=== PATIENT | female | born 1995 | race Caucasian/White ===

== ENCOUNTER 2024-05-08 14:43 | Emergency (ER) | payer BC, SELFPAY ==
[2024-05-08] VITALS (7 sets, daily range): BP systolic 125–151; BP diastolic 87–121; PULSE 98–133; RESP 14–18; TEMP 37.1; O2SAT 100; BMI 23.0
[2024-05-08 15:22] LABS: Appearance Urine Clear (Clear); Bilirubin Urine Negative (Negative); Blood Urine Negative (Negative); Color Urine Yellow (Yellow); Glucose Urine Negative (Negative); Ketones Urine Negative (Negative); Leukocyte Esterase Urine Trace (Negative); Nitrite Urine Negative (Negative); Protein Urine Negative (Negative); Urobilinogen Urine 0.2 (0.2-1.0)
[2024-05-08] MEDS: 0.9 % SODIUM CHLORIDE 1000 ml 1,000 ML IV (15:35)
--- NOTE | 2024-05-08 15:40 | ED_ITS ---
HPI - General Adult General Date Seen: 05/08/24 <Natalie Howe MD - Last Filed: 05/12/24 23:57> Chief complaint: Arrhythmia/Palpitations <Naatlie Howe MD - Last Filed: 05/12/24 23:57> Stated complaint: 16 weeks , abnormal EKG <Natalie Howe MD - Last Filed: 05/12/24 23:57> Time Seen by Provider: 05/08/24 14:49 <Natalie Howe MD - Last Filed: 05/12/24 23:57> Source: patient, RN notes reviewed and other <Natalie Howe MD - Last Filed: 05/12/24 23:57> Mode of arrival: ambulatory <Natalie Howe MD - Last Filed: 05/12/24 23:57> Limitations: no limitations <Natalie Howe MD - Last Filed: 05/12/24 23:57> History of Present Illness HPI narrative: Patient is a 29-year-old , 15 and half weeks who went to her regular clinic today because of ongoing problems with tachycardia and weakness. She was seen there last week and had IV fluids, felt improved after that but symptoms are recurring. She says she developed problems last Wednesday when she noticed when she stood up her heart felt like it was racing. She has had lots of problems with vomiting and has had a poor appetite, has been able to keep fluids down okay though. She notes that when she stands up her legs feel wobbly. She was not able to go to work last Wednesday because of these symptoms. 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 She describes feeling short of breath at 1 point but says it really is not shortness of breath it is just that her legs feel weak. She was able to go for a walk on Wednesday for about 20 minutes and says that went well, overall she has felt better since the fluids. She denies any chest pain, she has not had any lower extremity swelling, has had an occasional charley horse but nothing more persistent. she has not had any fevers or chills or other viral symptoms. She denies diarrhea, black or bloody stools. She had a history of preeclampsia with her 1st but otherwise was uncomplicated. She denies any family history of DVT, PE or significant miscarriage. She saw her primary doctor today and was sent here from clinic for further evaluation given ongoing tachycardia. She is noted to be tachycardic on standing up, but blood pressure also goes up with standing. She notes that she has been checking her blood pressures at home during this and they have always been good, but she says she does have some anxiety around having her blood pressure checked here in the hospital and is not surprised that it is running higher here. She does not smoke or drink. Here today with her . No vaginal bleeding. <Natalie Howe MD - Last Filed: 05/12/24 23:57> Related Data Home medications: Home Medications ?Medication ?Instructions ?Recorded ?Confirmed No Known Home Medications 05/08/24 05/08/24 <Natalie Howe MD - Last Filed: 05/12/24 23:57> Allergies/adverse reactions: Allergies Allergy/AdvReac Type Severity Reaction Status Date / Time No Known Drug Allergies Allergy Verified 05/08/24 14:50 <Natalie Howe MD - Last Filed: 05/12/24 23:57> Review of Systems Status of ROS: Reports: 6 or more systems reviewed and unremarkable except as noted in History and below <Natalie Howe MD - Last Filed: 05/12/24 23:57> [facility] Social History: Social History Smoking Status: Never smoker How often do you have a drink containing alcohol: never AUDIT-C Alcohol total score: 0 Non-prescribed substance use: denies use <Natalie oHwe MD - Last Filed: 05/12/24 23:57> Exam Narrative: Exam Narrative: Vital signs as noted above. In general, an alert, well-appearing patient. She is breathing easily, speaks in full sentences. Head: Normocephalic, atraumatic. Eyes: Pupils are equal reactive. Extraocular movements are full. Conjunctivae are normal. ENT: Mucous membranes are moist. Throat is normal. Neck: Supple without lymphadenopathy. Heart: Mild tachycardia, no murmur or rub. Lungs: Clear bilaterally. No increased work of breathing, crackles or wheezes. Abdomen: Gravid, soft, nontender to palpation. Extremities: Well perfused. No edema. No calf tenderness. Pulses intact. Neurologic: Patient is alert and oriented to person and place. Speech is fluent. Face is symmetric. Moves all extremities equally. Affect: Normal. Skin: Warm and dry. Well perfused. <Natalie Howe MD - Last Filed: 05/12/24 23:57> Const: Vital Signs, click to edit/add: Vital Signs - 24 hr 05/08/24 14:47 05/08/24 15:05 Temperature 98.8 F Pulse Rate [Left P ulse Oximeter] 104 H Pulse Rate [orthos tatic lying Pulse Oximeter] 110 H Pulse Rate [orthos tatic sitting Puls e Oximeter] 133 H Pulse Rate [orthos tatic standing Pul se Oximeter] 133 H Respiratory Rate 18 Blood Pressure [Ri ght Upper Arm] 151/102 H Blood Pressure [or thostatic lying Ri ght Arm] 138/89 Blood Pressure [or thostatic sitting Right Arm] 150/110 H Blood Pressure [or thostatic standing Right Arm] 149/121 H Pulse Oximetry 100 Oxygen Delivery Me thod Room Air <Natalie Howe MD - Last Filed: 05/12/24 23:57> Vital Signs, click to edit/add: Vital Signs - 24 hr 05/08/24 14:47 05/08/24 15:05 Temperature 98.8 F Pulse Rate [Left P ulse Oximeter] 104 H Pulse Rate [orthos tatic lying Pulse Oximeter] 110 H Pulse Rate [orthos tatic sitting Puls e Oximeter] 133 H Pulse Rate [orthos tatic standing Pul se Oximeter] 133 H Respiratory Rate 18 Blood Pressure [Ri ght Upper Arm] 151/102 H Blood Pressure [or thostatic lying Ri ght Arm] 138/89 Blood Pressure [or thostatic sitting Right Arm] 150/110 H Blood Pressure [or thostatic standing Right Arm] 149/121 H Pulse Oximetry 100 Oxygen Delivery Me thod Room Air <Jacqueline Bowman MD - Last Filed: 05/08/24 17:35> Documenting provider has reviewed patient's vital signs: yes <Natalie Howe MD - Last Filed: 05/12/24 23:57> Course Course ED Course: Patient had an EKG on arrival that shows mild sinus tachycardia with a ventricular rate of 102. No acute ST segment changes. No S1 Q 3 T3. I looked with the bedside ultrasound, she has normal cardiac contractility, no significant effusion. Right ventricle looks normal in size. We also took a peek at baby, her rate looks normal, good movement. Etiology of her symptoms at this time is a little unclear. She was sent here primarily because of concern for PE. Overall her presentation is fairly atypical for that, aside from the persistent tachycardia. We did do orthostatics, her heart rate jumps from 08/11 lying down to 133 standing but her blood pressure as mentioned also goes up. Pressures are high here will need to see if those settle back down. Will check some lab work, rule out anemia, electrolyte dysfunction, thyroid disease, LFTs in urine to look for unlikely symptoms of preeclampsia given fairly early stage of . I am going to place an IV and give her L of normal saline given her significant symptomatic tachycardia and state. <Natalie Howe MD - Last Filed: 05/12/24 23:57> Reevaluation(s) Reevaluation #1: Dr. Flores Dewey inherited care from Dr. Howe. Patient's D-dimer was elevated, she is undergoing CT PA. remainder of labs showing no signs of leukocytosis. Urinalysis is not suggestive of ketones or dehydration. TSH is within normal limits. Has received 1 L of normal saline. Awaiting imaging findings. <Jacqueline Bowman MD - Last Filed: 05/08/24 17:35> Time of Reevaluation #2: 17:33 <Jacqueline Bowman MD - Last Filed: 05/08/24 17:35> Reevaluation #2: Patient counseled on imaging findings, negative for pulmonary embolism. Other than the elevated D-dimer, blood work is also reassuring. No signs of significant infection, inflammation, severe anemia, electrolyte abnormality. Urinalysis was not suggestive of dehydration or excessive ketones. She does feel quite a bit better after IV fluids. Repeat blood pressure is 125/87. We discussed plenty of salt in her diet, steadily drinking fluids throughout the day. Would encourage compression stockings. Follow up with her obstetrical provider in 1 week and would recommend new [facility] paperwork to reflect need to sit and potential increased care due to symptoms. <Jacqueline Bowman MD - Last Filed: 05/08/24 17:35> Vital Signs Vital signs: Initial Vital Signs Temperature 98.8 F 05/08/24 14:47 Temperature Source Temporal Artery Scan 05/08/24 14:47 Pulse Rate 104 H 05/08/24 14:47 Respiratory Rate 18 05/08/24 14:47 Blood Pressure 151/102 H 05/08/24 14:47 Blood Pressure Mean 118 H 05/08/24 14:47 Blood Pressure Position Sitting 05/08/24 14:47 Pulse Oximetry 100 05/08/24 14:47 Oxygen Delivery Method Room Air 05/08/24 14:47 Vital Signs Temperature 98.8 F 05/08/24 14:47 Pulse Rate 104 H 05/08/24 14:47 Respiratory Rate 18 05/08/24 14:47 Blood Pressure 151/102 H 05/08/24 14:47 Pulse Oximetry 100 05/08/24 14:47 Oxygen Delivery Method Room Air 05/08/24 14:47 Temperature 98.8 F 05/08/24 17:45 Pulse Rate 104 H 05/08/24 17:45 Respiratory Rate 16 05/08/24 17:45 Blood Pressure 151/102 H 05/08/24 17:45 Pulse Oximetry 100 05/08/24 17:30 Oxygen Delivery Method Room Air 05/08/24 14:47 <Natalie Howe MD - Last Filed: 05/12/24 23:57> Initial Vital Signs Temperature 98.8 F 05/08/24 14:47 Temperature Source Temporal Artery Scan 05/08/24 14:47 Pulse Rate 104 H 05/08/24 14:47 Respiratory Rate 18 05/08/24 14:47 Blood Pressure 151/102 H 05/08/24 14:47 Blood Pressure Mean 118 H 05/08/24 14:47 Blood Pressure Position Sitting 05/08/24 14:47 Pulse Oximetry 100 05/08/24 14:47 Oxygen Delivery Method Room Air 05/08/24 14:47 Vital Signs Temperature 98.8 F 05/08/24 14:47 Pulse Rate 104 H 05/08/24 14:47 Respiratory Rate 18 05/08/24 14:47 Blood Pressure 151/102 H 05/08/24 14:47 Pulse Oximetry 100 05/08/24 14:47 Oxygen Delivery Method Room Air 05/08/24 14:47 Temperature 98.8 F 05/08/24 17:45 Pulse Rate 104 H 05/08/24 17:45 Respiratory Rate 16 05/08/24 17:45 Blood Pressure 151/102 H 05/08/24 17:45 Pulse Oximetry 100 05/08/24 17:30 Oxygen Delivery Method Room Air 05/08/24 14:47 <Jacqueline Bowman MD - Last Filed: 05/08/24 17:35> Medications Administered Medications: Discontinued Medications Generic Name Dose Route Start Last Admin Trade Name Freq PRN Reason Stop Dose Admin Sodium Chloride 1,000 mls @ 1,000 mls/hr 05/08/24 15:15 05/08/24 16:31 0.9 % Sodium Chloride 1000 Ml IV 05/08/24 16:14 Infused .Q1H EMANUEL Infusion <Natalie Howe MD - Last Filed: 05/12/24 23:57> Discontinued Medications Generic Name Dose Route Start Last Admin Trade Name Freq PRN Reason Stop Dose Admin Sodium Chloride 1,000 mls @ 1,000 mls/hr 05/08/24 15:15 05/08/24 16:31 0.9 % Sodium Chloride 1000 Ml IV 05/08/24 16:14 Infused .Q1H EMANUEL Infusion <Jacqueline Bowman MD - Last Filed: 05/08/24 17:35> Medical Decision Making Lab Data Lab results reviewed: Yes I reviewed the patient's lab results <Jacqueline Bowman MD - Last Filed: 05/08/24 17:35> Lab results narrative: Labs very reassuring. Hemoglobin is stable, no leukocytosis. D-dimer was elevated, even out of proportion for . Therefore CT tPA was ordered and is thankfully reassuring. TSH is within expected limits. Urinalysis does not show any significant dehydration, ketones or signs of infection. Troponin is negative. <Jacqueline Bowman MD - Last Filed: 05/08/24 17:35> Labs: Lab Results 05/08/24 05/08/24 Range/Units 15:16 15:30 WBC 6.47 (4.50-11.00) K/uL RBC 3.95 L (4.00-5.20) m/uL Hgb 11.6 L (12.0-16.0) gm/dL Hct 34.2 (33.0-51.0) % MCV 87 (80-100) fL MCH 29 (26-34) pg MCHC 34 (32-36) gm/dL RDW Coeff of Tanisha 13.2 (11.5-15.5) % Plt Count 262 (140-440) K/uL Neut % (Auto) 70.9 (42.0-72.0) % Lymph % (Auto) 20.2 (20-44) % [place] % (Auto) 7.3 (0.0-11.0) % Eos % (Auto) 1.2 (0.0-7.0) % Baso % (Auto) 0.2 (0.0-3.0) % Neut # (Auto) 4.59 (1.7-7.0) K/uL Lymph # (Auto) 1.31 (0.90-2.90) K/uL [place] # (Auto) 0.50 (0.00-0.90) K/UL Eos # (Auto) 0.08 (0.00-0.50) K/uL Baso # (Auto) 0.01 (0.00-0.30) K/uL Abs Immat Gran (auto) 0.01 (0.00-0.30) K/uL Imm/Tot Granulo (auto) 0.2 % D-Dimer Quant (PE/DVT) 1.40 H (0.00-0.50) ug/ml Sodium 134 L (135-149) mmol/L Potassium 3.9 (3.6-5.1) mmol/L Chloride 103 (96-114) mmol/L Carbon Dioxide 22 (20-32) mmol/L Anion Gap 9 (7-15) mEq/L BUN 11 (5-24) mg/dL Creatinine 0.5 (0.5-1.5) mg/dL Estimated Creat Clear 128.94 Estimated GFR 129 ml/min Glucose 89 (60-115) mg/dL Calcium 9.5 (8.4-10.6) mg/dL Total Bilirubin 0.4 (0.1-1.5) mg/dL Direct Bilirubin 0.1 (0.0-0.5) mg/dL AST 25 (12-35) U/L ALT 18 (4-35) U/L Alkaline Phosphatase 41 (40-150) U/L Total Protein 7.6 (6.0-8.3) g/dL Albumin 4.5 (3.3-5.0) g/dL TSH 3.380 (0.270-4.200) uIU/mL Urine Color Yellow (Yellow) Urine Appearance Clear (Clear) Urine pH 7.0 (5.0-8.5) Ur Specific [place] 1.010 (1.000-1.030) Urine Protein Negative (Negative) Urine Glucose (UA) Negative (Negative) Urine Ketones Negative (Negative) Urine Blood Negative (Negative) Urine Nitrite Negative (Negative) Urine Bilirubin Negative (Negative) Urine Urobilinogen 0.2 (0.2-1.0) Ur Leukocyte Esterase Trace A (Negative) Urine RBC 0-2 (0-2) Urine WBC 2-5 (0-5) Ur Squamous Epith Cells None (None-Few) Urine Bacteria None (None) POC Troponin I 0.00 L (0.01-0.04) ng/ml <Natalie Howe MD - Last Filed: 05/12/24 23:57> Lab Results 05/08/24 05/08/24 Range/Units 15:16 15:30 WBC 6.47 (4.50-11.00) K/uL RBC 3.95 L (4.00-5.20) m/uL Hgb 11.6 L (12.0-16.0) gm/dL Hct 34.2 (33.0-51.0) % MCV 87 (80-100) fL MCH 29 (26-34) pg MCHC 34 (32-36) gm/dL RDW Coeff of Tanisha 13.2 (11.5-15.5) % Plt Count 262 (140-440) K/uL Neut % (Auto) 70.9 (42.0-72.0) % Lymph % (Auto) 20.2 (20-44) % [place] % (Auto) 7.3 (0.0-11.0) % Eos % (Auto) 1.2 (0.0-7.0) % Baso % (Auto) 0.2 (0.0-3.0) % Neut # (Auto) 4.59 (1.7-7.0) K/uL Lymph # (Auto) 1.31 (0.90-2.90) K/uL [place] # (Auto) 0.50 (0.00-0.90) K/UL Eos # (Auto) 0.08 (0.00-0.50) K/uL Baso # (Auto) 0.01 (0.00-0.30) K/uL Abs Immat Gran (auto) 0.01 (0.00-0.30) K/uL Imm/Tot Granulo (auto) 0.2 % D-Dimer Quant (PE/DVT) 1.40 H (0.00-0.50) ug/ml Sodium 134 L (135-149) mmol/L Potassium 3.9 (3.6-5.1) mmol/L Chloride 103 (96-114) mmol/L Carbon Dioxide 22 (20-32) mmol/L Anion Gap 9 (7-15) mEq/L BUN 11 (5-24) mg/dL Creatinine 0.5 (0.5-1.5) mg/dL Estimated Creat Clear 128.94 Estimated GFR 129 ml/min Glucose 89 (60-115) mg/dL Calcium 9.5 (8.4-10.6) mg/dL Total Bilirubin 0.4 (0.1-1.5) mg/dL Direct Bilirubin 0.1 (0.0-0.5) mg/dL AST 25 (12-35) U/L ALT 18 (4-35) U/L Alkaline Phosphatase 41 (40-150) U/L Total Protein 7.6 (6.0-8.3) g/dL Albumin 4.5 (3.3-5.0) g/dL TSH 3.380 (0.270-4.200) uIU/mL Urine Color Yellow (Yellow) Urine Appearance Clear (Clear) Urine pH 7.0 (5.0-8.5) Ur Specific [place] 1.010 (1.000-1.030) Urine Protein Negative (Negative) Urine Glucose (UA) Negative (Negative) Urine Ketones Negative (Negative) Urine Blood Negative (Negative) Urine Nitrite Negative (Negative) Urine Bilirubin Negative (Negative) Urine Urobilinogen 0.2 (0.2-1.0) Ur Leukocyte Esterase Trace A (Negative) Urine RBC 0-2 (0-2) Urine WBC 2-5 (0-5) Ur Squamous Epith Cells None (None-Few) Urine Bacteria None (None) POC Troponin I 0.00 L (0.01-0.04) ng/ml <Jacqueline Bowman MD - Last Filed: 05/08/24 17:35> Imaging Data CT scan - chest: Attestation: I have reviewed the pertinent imaging results. <Jacqueline Bowman MD - Last Filed: 05/08/24 17:35> My impression: Normal chest CT, no evidence of embolism, effusion, cardiomegaly. <Jacqueline Bowman MD - Last Filed: 05/08/24 17:35> Radiologist's impression: IMPRESSION: 1. No acute thoracic findings. Specifically, no evidence of pulmonary embolism. 2. Incidental 3 millimeter solid nonspecific right middle lobe pulmonary nodule. <Jacqueline Bowman MD - Last Filed: 05/08/24 17:35> Discharge Plan Discharge Clinical Impression: Orthostatic dizziness <Natalie Howe MD - Last Filed: 05/12/24 23:57> Patient Disposition: Home w/ Parent or Adult <Natalie Howe MD - Last Filed: 05/12/24 23:57> Condition: Improved <Natalie Howe MD - Last Filed: 05/12/24 23:57> Instructions: Lightheadedness (ED) <Natalie Howe MD - Last Filed: 05/12/24 23:57> Additional Instructions: I am glad that you are feeling better after the fluids. Unfortunately, the symptoms may last for several weeks in the 2nd trimester . Thankfully, there were no signs of complications seen like severe anemia, infection, blood clot in the lungs, thyroid disease or other complications. I am glad that your blood pressure has improved after fluids. I would recommend that you try to increase your salt consumption for the next month. Try to drink electrolyte solutions steadily throughout the day. Consider wearing knee-high compression stockings. I would recommend that you have your Ob provider fill out some new [place] paperwork requesting your need to sit when you are not feeling well and that there may be increased care due to the symptoms. For many, they do get better by about the 22 week rupesh. If her symptoms worsen significantly, you have chest pain, severe shortness of breath with exertion, vaginal bleeding or other alarming symptoms, please come back to the emergency department. Otherwise plan to keep the appointment with her Ob provider next week and update them on your symptom progression. You may return to full work duties at this time. <Natalie Howe MD - Last Filed: 05/12/24 23:57> Activity Level: No Restrictions <Natalie Howe MD - Last Filed: 05/12/24 23:57> No Restrictions <Jacqueline Bowman MD - Last Filed: 05/08/24 17:35> Discharge Diet: Regular <Natalie oHwe MD - Last Filed: 05/12/24 23:57> Regular <Jacqueline Bowman MD - Last Filed: 05/08/24 17:35> Prescriptions: No Action No Known Home Medications <Natalie Howe MD - Last Filed: 05/12/24 23:57> Follow Up/Referrals: Kimberly Sánchez MD [Primary Care Provider] - <Natalie Howe MD - Last Filed: 05/12/24 23:57> Stand Alone Forms: MyHealth Info Instructions <Natalie Howe MD - Last Filed: 05/12/24 23:57>
[2024-05-08 15:45] LABS: RBC Urine 0-2 (0-2)
[2024-05-08 15:49] LABS: Basophils Absolute Auto 0.01 K/uL (0.00-0.30); Basophils Percent Auto 0.2 % (0.0-3.0); Eosinophils Absolute Auto 0.08 K/uL (0.00-0.50); Eosinophils Percent Auto 1.2 % (0.0-7.0); Hematocrit 34.2 % (33.0-51.0); Hemoglobin* 11.6 gm/dL (12.0-16.0); Immature Granulocytes Abs Auto 0.01 K/uL (0.00-0.30); Immature Granulocytes Pct Auto 0.2 %; Lymphocytes Absolute Auto 1.31 K/uL (0.90-2.90); Lymphocytes Percent Auto 20.2 % (20-44); Mean Corpuscular HGB Conc 34 gm/dL (32-36); Mean Corpuscular Hemoglobin 29 pg (26-34); Mean Corpuscular Volume 87 fL (80-100); Monocytes Percent Auto 7.3 % (0.0-11.0); Neutrophils Absolute Auto 4.59 K/uL (1.7-7.0); Neutrophils Percent Auto 70.9 % (42.0-72.0); Platelet Count* 262 K/uL (140-440); RDW Coefficient of Variation % 13.2 % (11.5-15.5); Red Blood Count 3.95 m/uL (4.00-5.20); White Blood Count* 6.47 K/uL (4.50-11.00)
[2024-05-08 15:55] LABS: Slide Review Reflex No
[2024-05-08 16:04] LABS: Albumin* 4.5 g/dL (3.3-5.0); Chloride* 103 mmol/L (96-114); Sodium* 134 mmol/L (135-149)
[2024-05-08 16:05] LABS: Potassium* 3.9 mmol/L (3.6-5.1)
[2024-05-08 16:07] LABS: Alanine Aminotransferase* 18 U/L (4-35); Alkaline Phosphatase* 41 U/L (40-150); Aspartate Amino Transferase* 25 U/L (12-35); Bilirubin Direct* 0.1 mg/dL (0.0-0.5); Bilirubin Total* 0.4 mg/dL (0.1-1.5); Creatinine* 0.5 mg/dL (0.5-1.5); Est. Creatinine Clearance* 128.94; Estimated Glomerular Filt Rate 129 ml/min; Total Protein* 7.6 g/dL (6.0-8.3)
[2024-05-08 16:08] LABS: Anion Gap 9 mEq/L (7-15); Blood Urea Nitrogen* 11 mg/dL (5-24); Calcium* 9.5 mg/dL (8.4-10.6); Carbon Dioxide* 22 mmol/L (20-32); Glucose* 89 mg/dL (60-115)
--- NOTE | 2024-05-08 16:18 | CRLHL7_ITS ---
For Patients: As a result of the Century Cures Act, medical imaging exams and procedure reports are released immediately into your electronic medical record. You may view this report before your referring provider. If you have questions, please contact your health care provider. INDICATION: Weakness and persistent tachycardia in the context of COMPARISON: None TECHNIQUE: CT of the chest with intravenous contrast (95 milliliters Isovue 370). Examination was performed utilizing a dedicated pulmonary angiography protocol. Reconstructed MIP images were created. FINDINGS: Airways: The trachea and central airways are clear. Lungs: No mass or consolidation. 3 millimeter nonspecific right middle lobe solid pulmonary nodule on series 6, image 102. Pleura: No effusion. Lymph nodes: No bulky thoracic lymphadenopathy. Heart: Normal size. Aorta: Normal caliber. Pulmonary artery: Normal caliber of the main pulmonary artery. No evidence of pulmonary embolism. Chest wall: Normal. Bones: No acute osseous findings. IMPRESSION: 1. No acute thoracic findings. Specifically, no evidence of pulmonary embolism. 2. Incidental 3 millimeter solid nonspecific right middle lobe pulmonary nodule. Please note that all CT scans at this facility use dose modulation, iterative reconstruction, and/or weight-based dosing when appropriate to reduce radiation dose to as low as reasonably achievable. Dictated by Bhaskar Junior MD @ 05/08/2024 5:22:40 PM (Electronically Signed)
== END 2024-05-08 17:45 | disposition home or self-care (01) ==
PROVIDERS: Emergency Medicine; Emergency Provider Family Medicine; PCP Family Medicine
DX: I95.1 Orthostatic hypotension (principal); Z3A.16 16 weeks gestation of pregnancy
CPT/HCPCS: 36415; 71275; 76604; 76705; 80048; 80076; 81001; 84443; 84484; 85025; 85379; 87086; 93005; 93308; 99284; 99285; J7030; Q9967

== ENCOUNTER 2024-08-28 15:30 | Outpatient (RCR) | payer BC, SELFPAY | END 2024-10-13 10:20 | disposition home or self-care (01) | PROVIDERS: PCP Family Medicine; Visit Provider Family Medicine | DX: M54.42 Lumbago with sciatica, left side (principal); G89.29 Other chronic pain; R10.2 Pelvic and perineal pain; Z51.89 Encounter for other specified aftercare | CPT/HCPCS: 97110; 97112; 97140; 97161; 97535 ==

== ENCOUNTER 2024-10-06 10:30 | Outpatient (CLI) | payer BC, SELFPAY ==
[2024-10-06 10:45] VITALS: BP 144/89; PULSE 122
[2024-10-06 10:51] VITALS: BP 137/83; PULSE 109
[2024-10-06 11:08] VITALS: BP 129/86; PULSE 108
[2024-10-06 11:23] VITALS: BP 132/82; PULSE 111
--- NOTE | 2024-10-06 14:11 | PC.OBNST ---
NST Note NST Note Start: 10/06/24 10:26 Freq: ONCE Status: Active Protocol: Document 10/06/24 12:45 PORT (Rec: 10/06/24 14:11 PORT Desktop) NST Note 2 Para (# of births) 1 EDC 10/24/24 Gestational Age In Weeks & Days 37 Weeks & 3 Days Patient Presented with Complaint(s) of Observation after an injury If Observation after an injury, describe Pt fell on the sidewalk, landed on knees but felt abdomen pulling Reactive Yes Appropriate for Gestational Age Yes DRAGAN Yanez RNC Date 10/06/24 Reactive Yes Appropriate for Gestational Age Yes DRAGAN Vallejo RNC Date 10/06/24 OB NST charge Yes Complete NST Note via Write Note Yes The provider's electronic signature indicates the NST is reactive/appropriate for gestational age. *Note to provider: If an addendum is required, open the patient's chart and click on the note under the Nurse/Allied Health tab.
--- NOTE | 2024-10-06 20:31 | PM.OBLDTN ---
OB - Triage/Final Diagnosis Visit Information Time Seen by Provider: 12:30 Date Seen: 10/06/24 Date of evaluation: 10/06/24 Narrative: The patient is a 29 year old 2 para 1 at 37.3 weeks gestation who presents following fall. Patient was downtown this morning and slipped on ice, falling on right knee. She felt a pulling sensation in her abdomen, but did not hit her abdomen. Notably, patient has significant white coat hypertension. She has been monitoring blood pressures at home, and per [facility] that has been reasonable to use for measurements. She has a mild headache today, and plans to take tylenol and report back if things do not improve. She has been noting more contractions recently, but not very painful. Evaluation Vital signs: Vital Signs - 24 hr 10/06/24 10:45 10/06/24 10:51 10/06/24 11:08 Pulse Rate 122 H 109 H 108 H Blood Pressure 144/89 H 137/83 129/86 10/06/24 11:23 Pulse Rate 111 H Blood Pressure 132/82 Comments: Abdomen is soft, nontender Right knee has small bruise on anterior knee, no significant tenderness Fetus (Single) Heart Rate Baseline: 135 Cold Press Operator Variability: Moderate (6-25) Monitor Accelerations: Present Monitor Decelerations: None Final Diagnosis (1) : Status: Acute Problem details: term , having some contractions, not painful. (2) Fall: Status: Acute Problem details: - monitored until 4 hours post fall (1.5 hours monitoring total). All reassuring. (3) White coat syndrome with hypertension: Status: Acute Problem details: - blood pressures at home reasonable. 1 elevated BP during evaluation. Labs done 2 days ago, so not repeated today. Total Time Spent Total Time Spent: 20 minutes
== END 2024-10-06 12:40 | disposition home or self-care (01) ==
LOC: OB OUT 10:37 → OB 10:40
PROVIDERS: PCP Family Medicine; Visit Provider Family Medicine
DX: O26.893 Other specified pregnancy related conditions, third trimester (principal); S39.91XA Unspecified injury of abdomen, initial encounter; W19.XXXA Unspecified fall, initial encounter; Z3A.37 37 weeks gestation of pregnancy
CPT/HCPCS: 59025; 99199; G0463

== ENCOUNTER 2024-10-10 15:28 | Inpatient (IN) | payer BC, SELFPAY ==
[2024-10-10] VITALS (32 sets, daily range): BP systolic 100–170; BP diastolic 55–91; PULSE 89–114; RESP 16; TEMP 36.6–37.1; O2SAT 100; BMI 27.6
[2024-10-10 13:48] LABS: Hematocrit 33.1 % (33.0-51.0); Hemoglobin* 10.9 gm/dL (12.0-16.0); Mean Corpuscular HGB Conc 33 gm/dL (32-36); Mean Corpuscular Hemoglobin 29 pg (26-34); Mean Corpuscular Volume 88 fL (80-100); Platelet Count* 228 K/uL (140-440); Red Blood Count 3.75 m/uL (4.00-5.20); White Blood Count* 7.08 K/uL (4.50-11.00)
[2024-10-10 13:59] LABS: Slide Review Reflex No
[2024-10-10 14:01] LABS: Alanine Aminotransferase* 16 U/L (4-35); Aspartate Amino Transferase* 20 U/L (12-35); Blood Urea Nitrogen* 9 mg/dL (5-24); Creatinine* 0.4 mg/dL (0.5-1.5); Estimated Glomerular Filt Rate 136 ml/min
[2024-10-10 14:02] LABS: Total Protein Urine 16 mg/dL
[2024-10-10 14:03] LABS: Creatinine Urine 20.5 mg/dL; Protein Creatinine Ratio Urine 0.78 (0-0.19)
[2024-10-10] MEDS: OXYTOCIN 30 unit/500 ML in NS 30 UNIT/500 ML BAG IVPB (17:13)
--- NOTE | 2024-10-10 19:45 | PM.OBHPLI ---
OB - H&P: HPI Labor/Induction History of Present Illness Date Seen: 10/10/24 Chief Complaint: The patient is a 29 year old 2 para 1 at 38 weeks gestation by LMP and confirmed with 6 week US, who presents with elevated BP and proteinuria. Chief complaint: Maternity : 2 Para: 1 Indications for induction: pre-eclampsia Narrative: Lucille Pringle is a 29 year old at 38 weeks by LMP and c/w 6 week US dating who presents with elevated home BP readings. She has a longstanding history of white coat HTN and has been regularly monitoring BP at home (home cuff is verified to be accurate). Today she had a sudden wave of nausea accompanied by elevated home BP readings 130/90s and these were c/w presenting BP readings in triage. Preeclampsia labs positive for prot:creat 0.78 otherwise within normal range. She Has a mild headache, no new RUQ pain (has had this intermittently and normal HFP and RUQ US). No swelling. No vision changes. This has been otherwise uncomplicated. She does have a history of preeclampsia with last and severe features pp necessitating a readmission for mag. She also had a pp hemorrhage due to a vaginal hematoma requiring operative repair and transfusion. 33 week US: EFW 1939gm which lies at the 16th % History of Present Dating criteria: based on LMP care: good care Ultrasounds: normal 1st trimester US and normal mid trimester US complications: preeclampsia and chronic hypertension (white coat htn) Labs Blood type: B (+) positive Rubella: immune RPR/VDLR: nonreactive GBS status: negative HBsAG: negative Review of Systems Status of ROS: Reports: 6 or more systems reviewed and unremarkable except as noted in History and below Meds Home Medications and Allergies Home Medications ?Medication ?Instructions ?Recorded ?Confirmed ?Type aspirin 81 mg chewable tablet 81 mg PO QDAY 09/05/24 10/10/24 History docosahexaenoic acid 200 mg 200 mg PO DAILY 09/05/24 10/10/24 History capsule ( DHA) fluticasone propionate 50 1 spray intranasal QDAY 09/05/24 10/10/24 History mcg/actuation nasal spray,suspension (Flonase Allergy Relief) ferrous sulfate 325 mg (65 mg 325 mg PO QDAY 10/10/24 10/10/24 History iron) tablet (iron) Allergies Allergy/AdvReac Type Severity Reaction Status Date / Time No Known Drug Allergies Allergy Verified 10/10/24 12:59 OB - H&P: Exam Physical Exam: Vital signs: Temp Pulse BP 98 F 92 131/83 10/10/24 13:08 10/10/24 18:01 10/10/24 18:01 Constitutional: Constitutional: no acute distress Routine HEENT Exam: Head: Present atraumatic and normal inspection Eye: Present EOMI and normal appearance ENT: Present mucous membranes moist Routine Neck Exam: Neck: Present full ROM Routine Respiratory Exam: Respiratory: Present CTA bilaterally Routine Cardiovascular Exam: Cardiovascular: RRR Detailed Labor and Delivery Exam: Patient Gravid: Yes Dilation (cm): 4 Effacement (%): 60 Cervix position: mid Consistency: soft Cervical ripeness score: 7 Contraction frequency (min): 3 Contraction intensity: Mild Fetus (Single): Station: -2 Amniotic Membrane Status: AROM Amniotic Membrane Fluid Description: Clear Heart Rate Baseline: 150 Monitor Accelerations: Present Monitor Decelerations: None Intermediate Variability: Moderate (6-25) Routine Extremities Exam: Extremities: Present full ROM Routine Neurological Exam: Present alert, oriented X3, CN II-XII intact and normal reflexes Routine Psychiatric Exam: Present normal affect OB - Results Labs Labs: Short CBC 10/10/24 Range/Units 13:36 WBC 7.08 (4.50-11.00) K/uL Hgb 10.9 L (12.0-16.0) gm/dL Hct 33.1 (33.0-51.0) % Plt Count 228 (140-440) K/uL BMP 10/10/24 13:36 BUN 9 Creatinine 0.4 L Liver Function 10/10/24 Range/Units 13:36 AST 20 (12-35) U/L ALT 16 (4-35) U/L OB - Problem Based A/P Additional Plan (1) : Status: Acute (2) History of hemorrhage, currently in third trimester: Problem details: received 1u pRBC's, L vaginal side wall hematoma Status: Acute (3) White coat syndrome with hypertension: Problem details: - blood pressures at home reasonable. 1 elevated BP during evaluation. Labs done 2 days ago, so not repeated today. Status: Acute (4) Preeclampsia: Status: Acute Plan Induction started with pitocin around 1700, AROM around 1930 with clear fluid. Will continue pitocin per protocol. Epidural for labor analgesia per patient request. Labs and BP monitoring/management per protocol. Anticipate . Type and crossed given history of pp Hemorrhage. Delivery/Labor/Induction Plan Plan: induction Induction method: per pitocin protocol
[2024-10-10] MEDS: LACTATED RINGERS 1000 ML 1,000 ML 125 ML IV (21:00)
[2024-10-10] MEDS: LIDOCAINE 2% (PF) 5 ML VIAL EPIDURAL (22:51)
[2024-10-10] MEDS: ROPIVACAINE 0.2% 100 ml 100 ML 12 MG EPIDURAL (22:51)
[2024-10-10] MEDS: LACTATED RINGERS 1000 ML 1,000 ML 925 ML IV (22:55)
--- NOTE | 2024-10-10 23:01 | PM.ANBPRC ---
PFSH PFS Surgical History (Updated 09/05/24 @ 15:25 by Evelin Morales MD) History of wisdom tooth extraction ?K08.409 - Partial loss of teeth, unspecified cause, unspecified class (ICD-10) Family History (Updated 09/05/24 @ 15:33 by Evelin Morales MD) Mother Breast cancer Thyroid disease High blood pressure Maternal Grandmother Colon cancer Paternal Grandmother Diabetes Father High blood pressure Social History (Updated 09/05/24 @ 15:34 by Evelin Morales MD) Narrative: Cis-gender, heterosexual woman. Relationship status: . 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 Tobacco: Lifetime nonsmoker E-cigarettes: No Alcohol: No Illicit/recreational drugs: No Safety concerns at home or work: No Dietary restriction(s): None Exercise: Yes, walks and does yoga 3 times per week What is your current living situation?: I presently have a place to live Problems where you live: no known problems In the past 12 months, utilities in danger of being shut off: no In past 12 months, lack of transportation kept you from medical appts, meetings, work, or getting things needed for daily living: no In the past 12 mos, have been you worried that your food would run out before you had money to buy more?: never true In the past 12 mos, the food you bought just didn't last and you didn't have money to buy more?: never true Smoking Status: Never smoker How often do you have a drink containing alcohol: never AUDIT-C Alcohol total score: 0 Non-prescribed substance use: denies use How often does anyone, including family, friends and others, physically hurt you: never How often does anyone, including family, friends and others, insult or talk down to you: never How often does anyone, including family, friends and others, threaten you with harm: never How often does anyone, including family, friends and others, scream or curse at you: never Meds Home Medications and Allergies Home Medications ?Medication ?Instructions ?Recorded ?Confirmed ?Type aspirin 81 mg chewable tablet 81 mg PO QDAY 09/05/24 10/10/24 History docosahexaenoic acid 200 mg 200 mg PO DAILY 09/05/24 10/10/24 History capsule ( DHA) fluticasone propionate 50 1 spray intranasal QDAY 09/05/24 10/10/24 History mcg/actuation nasal spray,suspension (Flonase Allergy Relief) ferrous sulfate 325 mg (65 mg 325 mg PO QDAY 10/10/24 10/10/24 History iron) tablet (iron) Allergies Allergy/AdvReac Type Severity Reaction Status Date / Time No Known Drug Allergies Allergy Verified 10/10/24 12:59 Results Labs Labs: Laboratory Results - last 24 hr 10/10/24 10/10/24 10/10/24 13:18 13:36 17:07 WBC 7.08 RBC 3.75 L Hgb 10.9 L Hct 33.1 MCV 88 MCH 29 MCHC 33 Plt Count 228 BUN 9 Creatinine 0.4 L Estimated GFR 136 AST 20 ALT 16 Urine Creatinine 20.5 Protein/Creatinin Ratio 0.78 H Urine Total Protein 16 Blood Type B Positive Antibody Screen NEGATIVE Vital Signs Vital Signs: Last Vital Signs Temp 98.6 F 10/10/24 20:00 Pulse 111 H 10/10/24 22:58 Resp 16 10/10/24 20:00 BP 123/71 10/10/24 22:58 Pulse Ox 100 10/10/24 22:42 Weight: 68.492 kg Height: 157.48 cm Anesthesia Procedures Epidural Insertion Patient Location: OB Start Time: 22:00 Stop Time: 23:00 Start Date: 10/10/24 Stop Date: 10/10/24 Reason for Block: procedure for pain Patient Position: sitting Performed By: Meryl Hays Preanesthetic Checklist: IV checked, site marked, risks and benefits discussed, monitors and equipment checked, pre-op evaluation and anesthesia consent Prep: chlorhexidine gluconate Monitoring: blood pressure monitoring, continuous pulse oximetry and heart rate Approach: midline Vertebral Space: lumbar (1-5) Epidural Technique: KOSTA saline Needle Type: Tuohy needle Injection Technique: continuous catheter Needle gauge: 17 Needle Length (cm): 10 cm Needle Insertion Depth (cm): 5 Catheter Gauge: 19 Catheter Type: multi-orifice Catheter at skin depth (cm): 15 Test Dose Result: negative and lidocaine 1.5% with epinephrine 1 to 200,000
[2024-10-10] MEDS: PHENYLEPHRINE 100 MCG/ML SYRINGE IVP (23:17)
[2024-10-11] VITALS (28 sets, daily range): BP systolic 110–151; BP diastolic 58–92; PULSE 60–127; RESP 16; TEMP 36.4–37.1; O2SAT 96–100
[2024-10-11] MEDS: PHENYLEPHRINE 100 MCG/ML SYRINGE IVP (00:16)
--- NOTE | 2024-10-11 03:12 | W.PM.VAGDEL1 ---
Procedure Delivery date: 10/11/24 Procedure Done: Global Events: Pre-Eclampsia Intrapartal Events: None Delivery augmentation: rupture of membranes Delivery monitor: external FHT and external uterine Route of delivery: Laceration description: Perineal - 2nd Degree Delivery repair: Vicryl Estimated blood loss (mL): 300 Anesthesia type: Epidural Disposition: floor Narrative: The patient is a 29 year-old admitted on 10/10/2024 at 38 Weeks, 0 Days gestation for elevated BP readings at home. These were confirmed in triage and preeclampsia labs positive for proteinuria. She was then induced for preeclampsia.?Pitocin was started on admission. Cervical exam on admission was 3 cm/60 % effaced/-2 station with membranes intact in vertex presentation.? Contractions were every 2-6 minutes.? heart rate demonstrated baseline 150 bpm with moderate variability, + accelerations, - decelerations; a category 1 tracing.? AROM occurred at 1934 with clear fluid. ? Labor Analgesia:? epidural ? Pitocin:? yes ? Labor onset:? 2200 ? Complete:? 0210 ? Pushing:? 0232 ? heart tones during second stage were category 2. ? At 0245 a viable male delivered in vertex OA presentation over intact perineum via spontaneous vaginal delivery.? was placed on maternal abdomen.? Cord was clamped and cut after a 30-60 second delay.? Nose and mouth were bulb suctioned.? Infant weight pending.? 8 at 1 minute and 9 at 5 minutes.? Shoulder dystocia: no.? Nuchal cord: yes, also nuchal hand. ? Placenta delivered spontaneously and complete at 0251 with a 3 vessel cord. ? Mother and infant were stable after delivery. ? Lacerations:? 2nd degree perineal, repaired with 3-0vicryl suture in usual fashion. ? Blood loss: 300 mL. Blood loss measurement type: QBL ? Sponge and needles counts are correct. Infant Gender: Male presentation: vertex Placental Delivery Description: Spontaneous (intact with an accessory lobe) Cord Description: 3 Vessels and Nuchal Cord
[2024-10-11] MEDS: IBUPROFEN 600 MG TABLET PO ×3 (03:29→23:55)
[2024-10-11] MEDS: DOCUSATE SODIUM 100 MG CAPSULE PO (09:17)
[2024-10-11] MEDS: ACETAMINOPHEN 500 MG TABLET 1000 MG PO ×2 (12:24→19:54)
[2024-10-11] MEDS: LABETALOL HCL 100 MG TABLET 200 MG PO (21:17)
[2024-10-12] VITALS (10 sets, daily range): BP systolic 127–150; BP diastolic 78–99; PULSE 78–94; RESP 16; TEMP 36.6–36.9; O2SAT 98–100
[2024-10-12] MEDS: ACETAMINOPHEN 500 MG TABLET 1000 MG PO ×4 (02:12→20:39)
[2024-10-12] MEDS: IBUPROFEN 600 MG TABLET PO ×3 (06:09→18:49)
[2024-10-12 06:34] LABS: Basophils Absolute Auto 0.05 K/uL (0.00-0.30); Basophils Percent Auto 0.6 % (0.0-3.0); Eosinophils Absolute Auto 0.11 K/uL (0.00-0.50); Eosinophils Percent Auto 1.4 % (0.0-7.0); Hematocrit 33.5 % (33.0-51.0); Hemoglobin* 10.9 gm/dL (12.0-16.0); Immature Granulocytes Abs Auto 0.06 K/uL (0.00-0.30); Immature Granulocytes Pct Auto 0.7 %; Lymphocytes Percent Auto 19.8 % (20-44); Mean Corpuscular HGB Conc 33 gm/dL (32-36); Mean Corpuscular Hemoglobin 29 pg (26-34); Mean Corpuscular Volume 89 fL (80-100); Monocytes Percent Auto 7.2 % (0.0-11.0); Neutrophils Percent Auto 70.3 % (42.0-72.0); Platelet Count* 231 K/uL (140-440); RDW Coefficient of Variation % 13.5 % (11.5-15.5); Red Blood Count 3.75 m/uL (4.00-5.20)
[2024-10-12 06:38] LABS: Slide Review Reflex No
[2024-10-12 06:49] LABS: Alanine Aminotransferase* 17 U/L (4-35); Aspartate Amino Transferase* 27 U/L (12-35); Creatinine* 0.5 mg/dL (0.5-1.5); Est. Creatinine Clearance* 128.94; Estimated Glomerular Filt Rate 129 ml/min
[2024-10-12] MEDS: LABETALOL HCL 100 MG TABLET 200 MG PO ×2 (08:21→19:55)
[2024-10-12] MEDS: DOCUSATE SODIUM 100 MG CAPSULE PO (08:22)
--- NOTE | 2024-10-12 16:42 | P.DS_ITS ---
DS: Providers Provider Date Seen: 10/12/24 Date of admission: 10/10/24 15:28 Primary care physician: Kimberly Sánchez MD Admitting Clinician: Yanira Krishnan MD Attending Physician on discharge: Kimberly Sánchez MD DS: Diagnosis Discharge Diagnosis (1) Preeclampsia: Status: Acute (2) Vaginal delivery: Status: Acute Exam Const: Vital Signs, click to edit/add: Vital Signs - 24 hr 10/11/24 20:13 10/11/24 20:36 10/11/24 23:35 Temperature 98.4 F 98.1 F Pulse Rate [Blood Pressure Cuff] Pulse Rate [Pulse Oximeter] 82 60 Respiratory Rate 16 16 Blood Pressure [Ri ght Arm] 151/85 H 144/92 H 143/87 H Pulse Oximetry 98 96 Oxygen Delivery Me thod Room Air Room Air 10/12/24 02:07 10/12/24 05:02 10/12/24 08:18 Temperature 98 F Pulse Rate [Blood Pressure Cuff] 79 Pulse Rate [Pulse Oximeter] 94 Respiratory Rate 16 16 Blood Pressure [Ri ght Arm] 137/90 H 129/84 139/92 H Pulse Oximetry 99 100 Oxygen Delivery Me thod Room Air 10/12/24 10:49 10/12/24 12:27 10/12/24 14:04 Temperature Pulse Rate [Blood Pressure Cuff] 88 Pulse Rate [Pulse Oximeter] 91 Respiratory Rate 16 16 Blood Pressure [Ri ght Arm] 131/80 127/87 134/84 Pulse Oximetry 98 Oxygen Delivery Me thod Room Air 10/12/24 16:11 Temperature 98.4 F Pulse Rate [Blood Pressure Cuff] 84 Pulse Rate [Pulse Oximeter] Respiratory Rate 16 Blood Pressure [Ri ght Arm] 131/78 Pulse Oximetry 98 Oxygen Delivery Me thod Room Air Documenting provider has reviewed patient's vital signs: yes Common normals: no apparent distress Resp: Common normals: clear to auscultation bilaterally Auscultation: clear to auscultation bilaterally Cardio: Common normals: regular rhythm and no murmurs Rhythm: regular rhythm GI: Common normals: soft to palpation Palpation: soft : Common normals: no CVA tenderness Bladder/kidney exam: no CVA tenderness Uterus: U/2 and firm Back & Pelvis: Common normals: no CVA tenderness and no thoracic nor lumbar tenderness Extremity: Common normals: full ROM, no calf tenderness and no pedal edema OB - DS: Summary Hospital Course Hospital Course: The patient is a 29 year old G 2 P 1 at 38 weeks gestation that was admitted to the Center on 10/10/24 for induction of labor secondary to preeclampsia. She had an uncomplicated vaginal delivery. She delivered a viable male infant. She is breast feeding. the patient has done well. She had a mild headache off and and that would resolve with ibuprofen. Not present at discharge. Also a left upper back pain that would come and go with position change and was also not present at discharge. BP on 10/11 noted to be persistently elevated in the 140s/90s or higher. Started on 200 mg of labetalol with improvement in numbers. Subsequent numbers in the 130s/80s. Discharged home with close BP monitoring and 24 hour follow up. Peripartum Data delivery method: Vaginal Infant Gender: Male Discharge Plan: Home Time Spent with Patient Time attestation: Total time spent providing and/or coordinating discharge services: Discharge Plan Discharge Disposition: Home, Self-Care Date of Admission: 10/10/24 15:28 Primary Care Provider: Kimberly Sánchez Condition: Stable Anticipated Discharge Date/Time: 10/12/24 16:38 Discharge Medications: New labetalol 100 mg Tablet 200 mg PO BID Qty: 120 0RF Continued DHA 200 mg capsule 200 mg PO DAILY fluticasone propionate [Flonase Allergy Relief] 50 mcg/actuation spray,suspension 1 spray intranasal QDAY Rx Instructions: administer into each nostril ferrous sulfate [iron] 325 mg (65 mg iron) tablet 325 mg PO QDAY Discontinued aspirin 81 mg tablet,chewable 81 mg PO QDAY Discharge Orders: Discharge Order (Routine); Ordered 10/12/24 Ordered By: Rafa High Patient Education: OB High Blood Pressure DC, OB Vaginal/Breast Feeding Additional Instructions: Follow up with Dr. Sánchez tomorrow, October 13, at 12:00 PM. Activity Level: Activity as Tolerated Discharge Diet: Regular Follow Up Appointments: Kimberly Sánchez MD [Primary Care Provider] - Forms: [employer] Data Info Instructions Discharge Comments: Follow up on 10/[address] Sánchez at 12 pm
--- NOTE | 2024-10-12 17:44 | CRLHL7_ITS ---
For Patients: As a result of the Century Cures Act, medical imaging exams and procedure reports are released immediately into your electronic medical record. You may view this report before your referring provider. If you have questions, please contact your health care provider. Indication: UPPER BACK PAIN WORSE INSPIRATION Technique: CTA chest, pulmonary embolism protocol, utilizing 95 mL Isovue 370 Comparison: CTA chest on May 08, 2024 Findings: No thyroid nodules. No thoracic lymphadenopathy. Mild cardiomegaly. No CT evidence of right heart strain. No pericardial effusion. The thoracic aorta and pulmonary artery are normal in caliber. No pulmonary embolism. No focal airspace consolidation, pleural effusion, or pneumothorax. Trace linear atelectasis in the left lung base. Stable solid 3 millimeter pulmonary nodule in the right middle lobe (series number 5, image 109). The airways are clear. The imaged upper abdomen is unremarkable. The soft tissues and bones are unremarkable. Impression: No CT evidence of an acute process involving the thorax; specifically, no pulmonary embolism. Please note that all CT scans at this facility use dose modulation, iterative reconstruction, and/or weight-based dosing when appropriate to reduce radiation dose to as low as reasonably achievable. Dictated by Saw Metcalf MD @ 10/12/2024 6:56:18 PM (Electronically Signed)
[2024-10-12 18:09] LABS: Rapid Plasma Reagin (RPR) Non Reactive (Non Reactive)
[2024-10-12] MEDS: NIFEdipine 30 MG TAB.ER.24 PO (21:58)
[2024-10-13] VITALS (12 sets, daily range): BP systolic 129–160; BP diastolic 80–98; PULSE 70–98; RESP 16–20; TEMP 36.6–37.1; O2SAT 97–100
[2024-10-13] MEDS: IBUPROFEN 600 MG TABLET PO ×4 (01:04→22:42)
--- NOTE | 2024-10-13 01:31 | P.OBPN_ITS ---
OB - PN:Subj Subjective Date Seen: 10/13/24 Narrative: Patient planned to discharge yesterday but blood pressures remained elevated at time of discharge so we elected to have her stay in the hospital and start nifedipine. Overall feeling ok. Mild headache after starting nifedipine. OB - PN: Obj Exam Physical Exam: Vital signs: Temp Pulse Resp BP Pulse Ox O2 Del Method 97.9 F 82 16 148/90 H 97 Room Air 10/13/24 01:11 10/13/24 01:11 10/13/24 01:11 10/13/24 00:33 10/13/24 01:11 10/13/24 01:11 Constitutional: Constitutional: no acute distress Routine Chest/Breast/Axilla Exam: Chest wall: Absent tenderness Detailed Chest Wall Exam: Chest wall: Absent crepitus, rib tenderness or wounds Routine Respiratory Exam: Respiratory: Present CTA bilaterally; Absent crackles, rales, rhonchi or wheezes Routine Cardiovascular Exam: Cardiovascular: Present RRR, S1 and S2; Absent murmur, gallop or rubs Routine Abdominal Exam: Abdominal: Present normal bowel sounds Fundus: Present firm Routine Extremities Exam: Extremities: Absent calf tenderness or pedal edema Routine Neurological Exam: Neurological: Present alert, oriented X3 and moving all extremities; Absent clonus Routine Psychiatric Exam: Psychiatric: Present normal affect OB - PN: Obj Data Labs Labs: Laboratory Results - last 24 hr 10/10/24 10/12/24 17:07 06:19 WBC 8.10 RBC 3.75 L Hgb 10.9 L Hct 33.5 MCV 89 MCH 29 MCHC 33 RDW Coeff of Tanisha 13.5 Plt Count 231 Neut % (Auto) 70.3 Lymph % (Auto) 19.8 L [place] % (Auto) 7.2 Eos % (Auto) 1.4 Baso % (Auto) 0.6 Neut # (Auto) 5.70 Lymph # (Auto) 1.60 [place] # (Auto) 0.60 Eos # (Auto) 0.11 Baso # (Auto) 0.05 Abs Immat Gran (auto) 0.06 Imm/Tot Granulo (auto) 0.7 Creatinine 0.5 Estimated Creat Clear 128.94 Estimated GFR 129 AST 27 ALT 17 RPR Screen Non Reactive OB - PN: A/P Delivery Assessment and Plan (1) Preeclampsia: Status: Acute Assessment and Plan: On labetalol and nifedipine. Plan to increase labetalol if not < 140/90 in AM. Repeat labs in AM. (2) Vaginal delivery: Status: Acute Assessment and Plan: Recovering well. No changes. (3) Upper back pain: Status: Acute Assessment and Plan: This is improved but still present. Because it was worse with inspiration, we elected to get a CT to rule out PE. This was negative but did show mild cardiomegaly. Likely physiologic change of . Will get pro-BNP with AM labs. If elevated, will get echocardiogram.
[2024-10-13] MEDS: ACETAMINOPHEN 500 MG TABLET 1000 MG PO ×3 (05:02→19:01)
[2024-10-13 06:38] LABS: Hematocrit 30.4 % (33.0-51.0); Hemoglobin* 10.1 gm/dL (12.0-16.0); Mean Corpuscular HGB Conc 33 gm/dL (32-36); Mean Corpuscular Hemoglobin 29 pg (26-34); Mean Corpuscular Volume 88 fL (80-100); Platelet Count* 230 K/uL (140-440); Red Blood Count 3.46 m/uL (4.00-5.20); White Blood Count* 7.77 K/uL (4.50-11.00)
[2024-10-13 06:54] LABS: Slide Review Reflex No
[2024-10-13 06:58] LABS: Alanine Aminotransferase* 15 U/L (4-35); Aspartate Amino Transferase* 27 U/L (12-35); Creatinine* 0.5 mg/dL (0.5-1.5); Est. Creatinine Clearance* 128.94; Estimated Glomerular Filt Rate 129 ml/min
[2024-10-13 07:11] LABS: NT Pro B Type NatriureticPept* 182 pg/mL
[2024-10-13] MEDS: LABETALOL HCL 100 MG TABLET 200 MG PO ×3 (08:24→22:02)
[2024-10-13] MEDS: DOCUSATE SODIUM 100 MG CAPSULE PO (08:25)
[2024-10-13] MEDS: NIFEdipine 30 MG TAB.ER.24 PO (21:01)
[2024-10-14] VITALS (9 sets, daily range): BP systolic 120–163; BP diastolic 78–98; PULSE 71–93; RESP 12–17; TEMP 36.6–36.9; O2SAT 97–98
[2024-10-14] MEDS: ACETAMINOPHEN 500 MG TABLET 1000 MG PO ×4 (01:23→20:28)
[2024-10-14] MEDS: IBUPROFEN 600 MG TABLET PO ×4 (05:11→23:48)
[2024-10-14 08:16] LABS: Hematocrit 31.8 % (33.0-51.0); Hemoglobin* 10.4 gm/dL (12.0-16.0); Mean Corpuscular HGB Conc 33 gm/dL (32-36); Mean Corpuscular Hemoglobin 29 pg (26-34); Mean Corpuscular Volume 88 fL (80-100); Platelet Count* 263 K/uL (140-440); Red Blood Count 3.61 m/uL (4.00-5.20); White Blood Count* 7.91 K/uL (4.50-11.00)
--- NOTE | 2024-10-14 08:24 | P.DS_ITS ---
DS: Providers Provider Date Seen: 10/14/24 Date of admission: 10/10/24 15:28 Primary care physician: Kimberly Sánchez MD Admitting Clinician: Yanira Krishnan MD Attending Physician on discharge: Kimberly Sánchez MD Date of Discharge: 10/14/24 DS: Diagnosis Discharge Diagnosis (1) Vaginal delivery: Status: Acute (2) Preeclampsia: Status: Acute Exam Const: Vital Signs, click to edit/add: Vital Signs - 24 hr 10/13/24 08:27 10/13/24 12:52 10/13/24 15:35 Temperature 98.0 F 98.6 F Pulse Rate [Blood Pressure Cuff] 81 76 80 Pulse Rate [Pulse Oximeter] Respiratory Rate 16 16 Blood Pressure [Ri ght Arm] 129/85 134/84 159/93 H Pulse Oximetry 100 98 Oxygen Delivery Me thod Room Air Room Air 10/13/24 15:50 10/13/24 16:05 10/13/24 16:19 Temperature 98.7 F Pulse Rate [Blood Pressure Cuff] 74 80 91 Pulse Rate [Pulse Oximeter] 98 Respiratory Rate 20 Blood Pressure [Ri ght Arm] 146/80 H 147/85 H 160/98 H Pulse Oximetry 99 Oxygen Delivery Me thod 10/13/24 17:52 10/13/24 20:16 10/13/24 22:01 Temperature 98.6 F Pulse Rate [Blood Pressure Cuff] 76 70 Pulse Rate [Pulse Oximeter] Respiratory Rate 20 20 Blood Pressure [Ri ght Arm] 151/92 H 143/93 H 145/81 H Pulse Oximetry 98 97 Oxygen Delivery Me thod Room Air Room Air 10/14/24 01:16 10/14/24 08:04 Temperature 98.0 F 97.8 F Pulse Rate [Blood Pressure Cuff] 88 Pulse Rate [Pulse Oximeter] 83 Respiratory Rate 12 17 Blood Pressure [Ri ght Arm] 126/84 142/98 H Pulse Oximetry 97 Oxygen Delivery Me thod Room Air Room Air Common normals: no apparent distress and oriented x3 GI: Common normals: Normal to inspection, nondistended, normoactive bowel sounds present and soft to palpation Palpation: soft Other: uterus firm at umbilicus Extremity: Common normals: no pedal edema Neuro: Common normals: oriented x3 OB - DS: Summary Hospital Course Hospital Course: The patient is a 29 year old G 2 P 2 at 38.1 weeks gestation that was admitted to the Center on 10/10/24 for IOL for preeclampsia. She had an uncomplicated vaginal delivery. She delivered a viable male infant. She is breast feeding. the patient developed higher blood pressure readings requiring labetalol, now titrated to 200 mg TID and nifedipine 30 mg/day. Unfortunately, LFTs are now above normal limits, will need to monitor before ready for d/c. She denies abdominal pain. Occasional headaches, relieved with OTC analgesics. no swelling. Peripartum Data Infant delivery method: Vaginal Laceration description: Perineal - 2nd Degree complications: none [place] Gender: Male Infant Discharge Plan: Home Time Spent with Patient Time attestation: Total time spent providing and/or coordinating discharge services: Discharge Plan Discharge Disposition: Home, Self-Care Date of Admission: 10/10/24 15:28 Attending Provider on Discharge: Kimberly Sánchez Primary Care Provider: Kimberly Sánchez Condition: Stable Anticipated Discharge Date/Time: 10/14/24 17:00 Discharge Medications: New nifedipine 30 mg Tablet Extended Release 24hr 30 mg PO HS Qty: 30 0RF labetalol 100 mg Tablet 200 mg PO TID Qty: 180 0RF Continued DHA 200 mg capsule 200 mg PO DAILY fluticasone propionate [Flonase Allergy Relief] 50 mcg/actuation spray,suspension 1 spray intranasal QDAY Rx Instructions: administer into each nostril ferrous sulfate [iron] 325 mg (65 mg iron) tablet 325 mg PO QDAY Discontinued aspirin 81 mg tablet,chewable 81 mg PO QDAY Discharge Orders: Discharge Order (Routine); Ordered 10/15/24 Ordered By: Kimberly Sánchez Patient Education: OB High Blood Pressure DC, OB Vaginal/Breast Feeding Additional Instructions: Follow up with Dr. Sánchez tomorrow, October 13, at 12:00 PM. Activity Level: Activity as Tolerated Discharge Diet: Regular Follow Up Appointments: Kimberly Sánchez MD [Primary Care Provider] - Forms: [facility] Info Instructions Discharge Comments: Follow up on 10/[address] Sánchez at 12 pm
[2024-10-14 08:28] LABS: Slide Review Reflex No
[2024-10-14 08:32] LABS: Creatinine* 0.6 mg/dL (0.5-1.5); Est. Creatinine Clearance* 107.45; Estimated Glomerular Filt Rate 123 ml/min
[2024-10-14 08:33] LABS: Alanine Aminotransferase* 36 U/L (4-35); Aspartate Amino Transferase* 39 U/L (12-35)
[2024-10-14] MEDS: DOCUSATE SODIUM 100 MG CAPSULE PO (08:45)
[2024-10-14] MEDS: LABETALOL HCL 100 MG TABLET 200 MG PO ×2 (08:45→14:11)
[2024-10-14 16:27] LABS: Alanine Aminotransferase* 45 U/L (4-35); Aspartate Amino Transferase* 42 U/L (12-35); Creatinine* 0.6 mg/dL (0.5-1.5); Est. Creatinine Clearance* 107.45; Estimated Glomerular Filt Rate 123 ml/min
[2024-10-14 16:35] LABS: Hematocrit 31.7 % (33.0-51.0); Hemoglobin* 10.3 gm/dL (12.0-16.0); Mean Corpuscular HGB Conc 33 gm/dL (32-36); Mean Corpuscular Hemoglobin 29 pg (26-34); Mean Corpuscular Volume 89 fL (80-100); Platelet Count* 291 K/uL (140-440); Red Blood Count 3.55 m/uL (4.00-5.20)
[2024-10-14 16:41] LABS: Slide Review Reflex No
[2024-10-14] MEDS: NIFEdipine 30 MG TAB.ER.24 PO (20:28)
[2024-10-14] MEDS: LABETALOL HCL 100 MG TABLET 300 MG PO (20:38)
[2024-10-14 21:51] LABS: Hematocrit 30.4 % (33.0-51.0); Hemoglobin* 10.1 gm/dL (12.0-16.0); Mean Corpuscular HGB Conc 33 gm/dL (32-36); Mean Corpuscular Hemoglobin 29 pg (26-34); Mean Corpuscular Volume 88 fL (80-100); Platelet Count* 270 K/uL (140-440); Red Blood Count 3.47 m/uL (4.00-5.20); Slide Review Reflex No; White Blood Count* 7.13 K/uL (4.50-11.00)
[2024-10-14 22:06] LABS: Alanine Aminotransferase* 47 U/L (4-35); Aspartate Amino Transferase* 40 U/L (12-35); Creatinine* 0.5 mg/dL (0.5-1.5); Est. Creatinine Clearance* 128.94; Estimated Glomerular Filt Rate 129 ml/min
[2024-10-15 04:40] VITALS: BP 131/77; PULSE 89; RESP 16; TEMP 36.7
[2024-10-15] MEDS: ACETAMINOPHEN 500 MG TABLET 1000 MG PO (04:50)
[2024-10-15 07:12] LABS: Hematocrit 33.2 % (33.0-51.0); Hemoglobin* 10.8 gm/dL (12.0-16.0); Mean Corpuscular HGB Conc 33 gm/dL (32-36); Mean Corpuscular Hemoglobin 29 pg (26-34); Mean Corpuscular Volume 90 fL (80-100); Platelet Count* 277 K/uL (140-440); Red Blood Count 3.71 m/uL (4.00-5.20); White Blood Count* 4.35 K/uL (4.50-11.00)
[2024-10-15 07:21] LABS: Alanine Aminotransferase* 50 U/L (4-35); Aspartate Amino Transferase* 42 U/L (12-35); Creatinine* 0.6 mg/dL (0.5-1.5); Est. Creatinine Clearance* 107.45; Estimated Glomerular Filt Rate 123 ml/min
[2024-10-15 07:27] LABS: Slide Review Reflex No
[2024-10-15] MEDS: DOCUSATE SODIUM 100 MG CAPSULE PO (08:09)
[2024-10-15] MEDS: IBUPROFEN 600 MG TABLET PO (08:09)
[2024-10-15 08:11] VITALS: BP 127/84; PULSE 93; RESP 17; TEMP 36.9; O2SAT 98
[2024-10-15] MEDS: LABETALOL HCL 100 MG TABLET 300 MG PO (09:01)
--- NOTE | 2024-10-15 09:11 | P.DS_ITS ---
DS: Providers Provider Date Seen: 10/15/24 Date of admission: 10/10/24 15:28 Primary care physician: Kimberly Sánchez MD Admitting Clinician: Yanira Krishnan MD Attending Physician on discharge: Kimberly Sánchez MD Date of Discharge: 10/15/24 DS: Diagnosis Discharge Diagnosis (1) Vaginal delivery: Status: Acute (2) Preeclampsia: Status: Acute Exam Const: Vital Signs, click to edit/add: Vital Signs - 24 hr 10/14/24 10:51 10/14/24 14:13 10/14/24 15:21 Temperature Pulse Rate [Blood Pressure Cuff] 90 Pulse Rate [Pulse Oximeter] Respiratory Rate 17 17 Blood Pressure [Ri ght Arm] 125/78 148/82 H 120/79 Pulse Oximetry Oxygen Delivery Me thod Room Air 10/14/24 17:41 10/14/24 20:10 10/14/24 20:28 Temperature 98.1 F 98.4 F Pulse Rate [Blood Pressure Cuff] 81 86 71 Pulse Rate [Pulse Oximeter] 81 Respiratory Rate 17 16 Blood Pressure [Ri ght Arm] 149/82 H 163/88 H 150/89 H Pulse Oximetry 98 Oxygen Delivery Me thod Room Air 10/14/24 23:45 10/15/24 04:40 10/15/24 08:11 Temperature 98.4 F 98.1 F 98.4 F Pulse Rate [Blood Pressure Cuff] 93 89 93 Pulse Rate [Pulse Oximeter] Respiratory Rate 16 16 17 Blood Pressure [Ri ght Arm] 128/78 131/77 127/84 Pulse Oximetry 98 Oxygen Delivery Me thod Room Air Room Air Documenting provider has reviewed patient's vital signs: yes Common normals: no apparent distress, average body habitus and oriented x3 GI: Common normals: Normal to inspection, nondistended, normoactive bowel sounds present and soft to palpation Palpation: soft Other: uterus firm 3 cm below umbilicus. Extremity: Common normals: normal to inspection and no pedal edema Neuro: Common normals: oriented x3 OB - DS: Summary Hospital Course Hospital Course: The patient is a 29 year old G 2 P 2 at 38.1 weeks gestation that was admitted to the Center on 10/10/24 for IOL for preeclampsia. She had an uncomplicated vaginal delivery. She delivered a viable male infant. She is breast feeding. the patient developed persistently elevated BP now on labetalol 300 mg TID and nifedipine 30 mg daily. LFTs bumped slightly yeasterday, but have remained stable and not at 2x upper limit normal. Still having some headaches, but no abdominal pain, no swelling. Headaches improved with OTC analgesics. Peripartum Data Infant delivery method: Vaginal Laceration description: Perineal - 2nd Degree Episiotomy description: None Gender: Male Discharge Plan: Home Status at Discharge Functional status at discharge: independent ambulation Overall status at discharge: patient is progressing back to baseline Time Spent with Patient Time attestation: Total time spent providing and/or coordinating discharge services: Time spent: Less than 30 minutes Discharge Plan Discharge Disposition: Home, Self-Care Date of Admission: 10/10/24 15:28 Attending Provider on Discharge: Kimberly Sánchez Primary Care Provider: Kimberly Sánchez Condition: Stable Anticipated Discharge Date/Time: 10/15/24 09:14 Discharge Medications: New nifedipine 30 mg Tablet Extended Release 24hr 30 mg PO HS Qty: 30 0RF labetalol 100 mg Tablet 300 mg PO TID Qty: 270 0RF Continued DHA 200 mg capsule 200 mg PO DAILY fluticasone propionate [Flonase Allergy Relief] 50 mcg/actuation spray,suspension 1 spray intranasal QDAY Rx Instructions: administer into each nostril ferrous sulfate [iron] 325 mg (65 mg iron) tablet 325 mg PO QDAY Discontinued aspirin 81 mg tablet,chewable 81 mg PO QDAY Discharge Orders: Discharge Order (Routine); Ordered 10/15/24 Ordered By: Kimberly Sánchez Patient Education: OB High Blood Pressure DC, OB Vaginal/Breast Feeding Additional Instructions: Follow up with Dr. Sánchez tomorrow, October 13, at 12:00 PM. Activity Level: Activity as Tolerated Discharge Diet: Regular Follow Up Appointments: Kimberly Sánchez MD [Primary Care Provider] - Forms: Managed Methods Info Instructions Discharge Comments: Follow up on 10/[address] Sánchez at 9:45 AM
== END 2024-10-15 10:32 | disposition home or self-care (01) | DRG 560 ==
LOC: OB OUT 15:28 → OB 15:28
PROVIDERS: Surgery; Admitting Provider Family Medicine; PCP Family Medicine; Visit Provider Family Medicine
DX: O11.4 Pre-existing hypertension with pre-eclampsia, complicating childbirth (principal); O10.92 Unspecified pre-existing hypertension complicating childbirth; O70.1 Second degree perineal laceration during delivery; M54.89 Other dorsalgia; I51.7 Cardiomegaly; Z3A.38 38 weeks gestation of pregnancy; Z37.0 Single live birth
CPT/HCPCS: 01967; 36415; 71275; 82565; 82570; 83880; 84156; 84450; 84460; 84520; 85018; 85025; 85027; 86592; 86850; 86900; 86901; 88307; A9270; J2371; J2795; J7120; Q9967

== ENCOUNTER 2024-10-17 18:06 | Inpatient (IN) | payer BC, SELFPAY ==
[2024-10-17] VITALS (22 sets, daily range): BP systolic 101–191; BP diastolic 65–111; PULSE 64–99; RESP 16; TEMP 37.1; O2SAT 98–100
--- OUTSIDE RECORDS SUMMARY | 2024-10-17 18:08 | XMS_ITS | Clinical Summary ---
Author Organization [facility] Address [id number], [place] [address] Care Team Providers Care Secretary Board Of Commissioners Name Role Phone Unavailable Primary Care Provider Unavailabl e Source Comments You are receiving this document as you are listed as the primary care provider,follow-up provider, or the patient has been referred to you for consultation.This is in compliance with the Medicare and[facility] Incentive Program,which states Providers who transition their patient to another setting of careor provider of care or refers their patient to another provider of care shouldprovide summary care record for each transition of care or referral. [facility] Allergies No known active allergies Medications escitalopram (LEXAPRO) 10 MG tablet Take 1 Tablet (10 mg) by mouth every morning. 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 Gender Identity Not on file Sexual Orientation Not on file Last Filed Vital Signs Vital Sign Reading Time Taken Comments Blood Pressure - - Pulse 121 09/09/2022 4:31 PM ADOPTION MANAGER Temperature 36.6 C (97.9 F) 09/09/2022 4:31 PM ADOPTION MANAGER Respiratory Rate 16 09/09/2022 4:31 PM ADOPTION MANAGER Oxygen Saturation 100% 09/09/2022 4:31 PM ADOPTION MANAGER Inhaled Oxygen Concentration - - Weight - - Height - - Body Mass Index - - Plan of Treatment Health Maintenance Due Date Last Done Comments Cervical Cancer Screening Due 1993 Hep C Screening (Preventive Services) 1993 HIV Screening (Preventive Services) 2009 Adult Preventive Visit 2011 HepB (1) 02/04/2012 COVID-19 Vaccine ( season) 2024 06/19/2022, 08/07/2021, 10/09/2020, Additional history exists Influenza (#1) 2024 06/19/2022, 09/0 08/2020, 04/19/2020, Additional history exists DTaP/Tdap/Td (2 - Tdap) 04/30/2031 04/30/2021 Zoster/Shingles (1 of 2) 2043 HPV Vaccine Aged Out No longer eligi ble based on patient's age to complete this topic HepA Aged Out No longer eligi ble based on patient's age to complete this topic Hib Aged Out No longer eligi ble based on patient's age to complete this topic IPV (Polio) Aged Out No longer eligi ble based on patient's age to complete this topic MCV4 Aged Out No longer eligi ble based on patient's age to complete this topic Meningococcal B Aged Out No longer el igible based on patient's age to complete this topic Pneumococcal Aged Out No longer eligi ble based on patient's age to complete this topic Insurance [employer] CHO[employer]
--- OUTSIDE RECORDS SUMMARY | 2024-10-17 18:08 | XMS_ITS | Clinical Summary ---
Author Organization [facility] Address Formerly [facility] [place] [address] Care Team Providers Care Director Corporate Compliance Name Role Phone Kimberly Sánchez MD Primary Care Provider Allergies Active Allergy Reactions Criticality Noted Date Comments Prednisone GI Upset 10/13/2013 Medications fluticasone (50 mcg per actuation) nasal solution (FLONASE)Indicat ions:Post-nasal drip INHALE 1 SPRAY IN EACH NOSTRIL EVERY DAY 16 mL 7 Active Cetirizine 10 mg cap Take by mouth. 0 9 Active vit 28/iron fum/folic (multivitamin folic acid 1 mg) Take 1 Tablet by mouth once daily. 0 1 Active aspirin chewable 81 mg chewable tablet Chew 81 mg by mouth once daily. Active Breast Pump PurchaseIndicati ons:Care and examination of lactating mother Electric breast pump for home use. Gestational age at delivery: 40 weeks. Reason for need: return to work. Length of need: 99 months (lifetime use) 1 Each 5 Active iron bisgly,ps-FA-B-C #12-succ 65 mg-65 mg -1,000 mcg (24) tab Take by mouth. Ac tive labetaloL (TRANDATE) 100 mg tablet Take 100 mg by mouth three times daily. Active NIFEdipine (PROCARDIA XL) 30 mg extended-release tablet Take 30 mg by mouth once daily before a meal. Active Active Problems Problem Noted Date Diagnosed Date 09/26/2024 Overview (10/04/2024): CALL PRINCESS WHEN SHE COMES IN LABOR Estimated Date of Delivery: 10/24/24 Patient's last menstrual period was 01/18/2024 (exact date). US 09/08/24 Normal biophysical profile score 8/8. Sonographic gestational age 32 weeks 6 days and a sonographic due date 10/27/2024. Good correlation with dates. Normal interval growth Estimated weight 16th percentile. Abdominal circumference 28th percentile. Femur length 3rd percentile. Hx PP preeclampsia- on ASA GBS: 28wk labs: GLUCOSE, GESTATIONAL SCREEN (50G)-140 CUTOFF Date Value Ref Range Status 07/31/2024 72 <140 mg/dL Final HEMOGLOBIN Date Value Ref Range Status 09/13/2024 10.2 (L) 11.7 - 15.5 g/dL Final TREPONEMA PALLIDUM Date Value Ref Range Status 07/31/2024 Non-Reactive Non-Reactive Final OB labs: ABORH Date Value Ref Range Status 03/16/2024 B Rh Positive Final ANTIBODY SCREEN Date Value Ref Range Status 03/16/2024 Negative Negative Final TREPONEMA PALLIDUM Date Value Ref Range Status 07/31/2024 Non-Reactive Non-Reactive Final 04/02/2021 Negative Negative Final HBSAG Date Value Ref Range Status 03/16/2024 Nonreactive Nonreactive Final 11/15/2020 Nonreactive Nonreactive Final HEPATITIS C ANTIBODY Date Value Ref Range Status 03/16/2024 Non-Reactive Non-Reactive Final Comment: Please note, per www.CDC.gov: If a patient is known to be at high risk of HCV infection, or is symptomatic, and the physician's suspicion of HCV infection is high, HCV RNA testing is often employed and is of diagnostic value, even after an initial negative anti-HCV test result. HIV-1/HIV-2 SCREEN Date Value Ref Range Status 03/16/2024 Non-Reactive Non-Reactive Final Comment: HIV-1 p24 and HIV-1/HIV-2 Ab Not Detected. HEMOGLOBIN Date Value Ref Range Status 03/16/2024 12.4 12.0 - 16.0 g/dL Final HEMOGLOBIN Date Value Ref Range Status 09/13/2024 10.2 (L) 11.7 - 15.5 g/dL Final PLATELET COUNT Date Value Ref Range Status 03/16/2024 291 140 - 440 thou/cu mm Final PLATELET COUNT Date Value Ref Range Status 09/13/2024 258 140 - 400 Thousand/uL Final CHLAMYDIA PROBE Date Value Ref Range Status 03/16/2024 Negative Final N GONORRHOEAE PROBE Date Value Ref Range Status 03/16/2024 Negative Final Last Flu vaccine: 05/15/24 Tdap: 07/31/24 RSV: 08/31/24 Allergies Allergen Reactions Prednisone GI Upset OB History Para Term AB Living 2 1 1 0 0 1 SAB IAB Ectopic Multiple Live Births 0 0 0 0 1 # Outcome Date GA Lbr Jatinder/2nd Weight Sex Type Anes PTL Lv 2 Current 1 Term 07/08/21 37w2d M EPIDURAL JUANY Complications: Hematoma Name: Aneesh Past Medical History: . Date Other atopic dermatitis and related conditions Raynaud phenomenon Past Surgical History: . Laterality Date hematoma repair 2020 NO PREVIOUS SURGERY WISDOM TEETH EXTRACTION 2010 2 Problems (from 03/16/24 to present) Problem Noted Diagnosed Resolved [facility] Supervision of high-risk 03/16/2024 by Yessi Angel RN No Overview Addendum 03/28/2024 10:32 AM by Adeline Mustafa RN Amber L Soderlund : 1995 [facility] ULTRASOUND/TESTING PATIENT MPP CONSULT ON 03/31/24 REFERRING PROVIDER/CLINIC LOCATION/FAX #: Kimberly Sánchez MD Primary provider approves scheduling of recommended ultrasounds/testing: Yes Support person name: Foreign Exchange Services Manager: No ULTRASOUND TYPE: n/a REASON FOR VISIT: consult for hx PreE Per provider: Home blood pressure readings are normal despite being high in clinic (this is true even between pregnancies). Will have MFM give recommendations for if/when to initiate antihypertensive treatment. NEXT VISIT ALERTS: Final JENNY by LMP LMP Date: Patient's last menstrual period was 01/18/2024 (exact date). JENNY: 10/24/24 Early US: Date: 03/07/24 GA: 6w5d JENNY: 10/26/24 PrePregnancy Weight: 123 lb Height: 62 BMI: 22.5 PLANS & FUTURE APPOINTMENTS: ULTRASOUND/GROWTH PLAN: - Growth: Next TESTING PLAN: - Testing: Through DELIVERY PLAN: - Scheduled delivery: - Preferred delivery location: PRIMARY DIAGNOSIS: 29 y.o. Estimated Date of Delivery: 10/24/24 : MATERNAL: Hx PreE with 2020 delivery at 37w1d vag del--vaginal hematoma required repair in OR for PPH, blood transfusion, severe range PP HTN-admit for MgSO4 and BP mgmt Raynaud's phenomenon Borderline hypertension PREVIOUS ULTRASOUNDS: 03/07/24 GA: 6w5d JENNY: 10/26/24 ECHO: SPECIALISTS/CONSULTS: Include: Specialty MD Clinic Name Phone# [facility] and ADDED TO PATIENT CARE TEAM No GENETICS: Declines CARE COORDINATION: PERTINENT LABS: Blood type: B Rh Positive Antibody screen: Negative 03/16/24 Pre-E labs WNL x PCR too low to calculate PERTINENT MEDS: bASA at 12 weeks PROCEDURES: PLAN OF CARE: Original and updated POC Maura Wing RN ....09/26/2024 4:16 PM [facility] Supervision of high-risk 4 Overview (03/28/2024): Lucille Pringle : 1995 MPP ULTRASOUND/TESTING PATIENT MPP CONSULT ON 03/31/24 REFERRING PROVIDER/CLINIC LOCATION/FAX #: Kimberly Sánchez MD Primary provider approves scheduling of recommended ultrasounds/testing: Yes Support person name: Foreign Exchange Services Manager: No ULTRASOUND TYPE: n/a REASON FOR VISIT: consult for hx PreE Per provider: Home blood pressure readings are normal despite being high in clinic (this is true even between pregnancies). Will have MFM give recommendations for if/when to initiate antihypertensive treatment. NEXT VISIT ALERTS: Final JENNY by LMP LMP Date: Patient's last menstrual period was 01/18/2024 (exact date). JENNY: 10/24/24 Early US: Date: 03/07/24 GA: 6w5d JENNY: 10/26/24 PrePregnancy Weight: 123 lb Height: 62 BMI: 22.5 PLANS & FUTURE APPOINTMENTS: ULTRASOUND/GROWTH PLAN: - Growth: Next TESTING PLAN: - Testing: Through DELIVERY PLAN: - Scheduled delivery: - Preferred delivery location: PRIMARY DIAGNOSIS: 29 y.o. Estimated Date of Delivery: 10/24/24 : MATERNAL: Hx PreE with 2020 delivery at 37w1d vag del--vaginal hematoma required repair in OR for PPH, blood transfusion, severe range PP HTN-admit for MgSO4 and BP mgmt Raynaud's phenomenon Borderline hypertension PREVIOUS ULTRASOUNDS: 03/07/24 GA: 6w5d JENNY: 10/26/24 ECHO: SPECIALISTS/CONSULTS: Include: Specialty MD Clinic Name Phone# [facility] and ADDED TO PATIENT CARE TEAM No GENETICS: Declines CARE COORDINATION: PERTINENT LABS: Blood type: B Rh Positive Antibody screen: Negative 03/16/24 Pre-E labs WNL x PCR too low to calculate PERTINENT MEDS: bASA at 12 weeks PROCEDURES: PLAN OF CARE: Original and updated POC Post-nasal drip 09/07/2014 Pap smear for cervical cancer screening 09/07/19 15 Overview (11/18/2022): 09/07/2014 ASCUS/HPV Negative. 01/25/2019 NIL 10/21/2022 NIL/HPV negative Plan: Pap and HPV due 10/2027 Borderline hypertension 10/13/2013 Raynaud phenomenon 10/13/2013 Menorrhagia 11/18/2010 Resolved Problems Problem Noted Date Diagnosed Date Resolved Date anomaly suspected but not found 07/04/2021 10/21/2022 Hypertension affecting pregn jose luis in third trimester 07/04/2021 10/21/2022 MPP-Supervision of high-risk 07/02/2021 10/21/2022 Overview (07/04/2021): MPP TESTING ONLY NEXT VISIT ALERTS: level 2 u/s, can cancel BPP/NST if not needed PLANS & FUTURE APPOINTMENTS: TESTING PLAN: weekly at her primary's office - Testing: Through 07/04/2021 GROWTH PLAN: - Growth: Next 07/04/2021 DELIVERY PLAN: - Scheduled delivery: - Preferred delivery location: PRIMARY DIAGNOSIS: 26 y.o. Estimated Date of Delivery: 07/27/21 Short femur length Coiled umbilical cord Elevated b/p-06/23 Pre- E labs WNL Raynaud phenomenon BMI=27 LAST GROWTH: 07/04/21: 06/30/2021 [facility] FL 19%, EFW 19% being faxed over 03/11/2021 20w3d FL 47 % ECHO: REFERRING PHYSICIAN/PHONE/LAST UPDATE: Dr. Malu Sánchez [place] [phone] Primary MD approves scheduling of recommended ultrasounds/testing:yes SPECIALISTS/CONSULTS: Include: Specialty MD Clinic Name Phone# [facility] [place] and ADDED TO PATIENT CARE TEAM GENETICS: IF FGR <10% or EFW <2000 grams: Add FGRPCOM CARE COORDINATION: Needs H&P 30 days prior to delivery if MPP doing delivery PERTINENT LABS: PERTINENT MEDS: Lexapro PLAN OF CARE: 01/06/2021 10/21/2022 Overview (07/08/2021): Component Latest Ref Rng & Units 07/02/2021 Vaginal/Rectal OB Strep B PCR Negative Estimated Date of Delivery: 07/27/21 Patient's last menstrual period was 10/10/2020. Last Tdap- 04/30/2021 Last Flu vaccine- 04/02/2021 Glucose (GTT) result- Component Latest Ref Rng & Units 04/02/2021 HEMOGLOBIN 12.0 - 16.0 g/dL 10.4 (L) MCV 80 - 100 fL 90 GLUCOSE,GESTATIONAL 65 - 140 mg/dL 107 TREPONEMA PALLIDUM Negative Negative Allergies Allergen Reactions Prednisone GI Upset OB History Para Term AB Living 1 0 0 0 0 0 SAB TAB Ectopic Multiple Live Births 0 0 0 0 0 # Outcome Date GA Lbr Jatinder/2nd Weight Sex Delivery Anes PTL Lv 1 Current Create lab flowsheet for OB labs- Component Latest Ref Rng & Units 11/15/2020 11/15/2020 11/15/2020 4:41 PM 4:41 PM 4:41 PM HEMOGLOBIN 12.0 - 16.0 g/dL 13.5 MCV 80 - 100 fL 86 ANTIBODY SCREEN Negative Negative SPECIMEN EXPIRATION DATE/TIME 11/18/20 23:59 RUBELLA IGG ANTIBODY Positive 2.53 HIV-1/HIV-2 ANTIBODY Non-Reactive Non-Reactive ABORH B Rh Positive HBSAG Nonreactive Nonreactive TREPONEMA PALLIDUM Negative Negative Past Medical History: . Date ASCUS of cervix with negative high risk HPV 09/07/2014 09/07/2014 ASCUS/HPV Negative. Plan: Routine screening Other atopic dermatitis and related conditions Past Surgical History: . Laterality Date NO PREVIOUS SURGERY No data on file. 1 Problems (from 12/20/20 to present) No problems associated with this episode. Erin Corral RN.....01/06/2021 9:21 AM Encounter for supervision of normal first in first trimester 12/20/2020 10/21/2022 Encounter for supervision of other normal , first trimester 11/15/2020 10/21/2022 Encounters Date Type Department Care Team Description 10/16/2024 9:30 AM CDT Office Visit [facility] [address] [place] [address] Kimberly Sánchez MD Blood Pressure (Still having the headache but nothing else.) 10/16/2024 Travel 10/15/2024 Orders Only [facility] Scanner 1 scan: (1-Ord) [facility] MULT[facility]LE LABS, 10/15/2024 10/14/2024 Orders Only [facility] Scanner 1 scan: (1-Ord) [facility] [place] [facility] RESULTS, 10/14/2024 10/13/2024 Orders Only [facility] Scanner 1 scan: (1-Ord) [facility] [place], 10/13/2024 10/12/2024 Orders Only [facility] Scanner 1 scan: (1-Ord) [facility], CT ANGIO CHEST PE PROTOCOL, 10/12/2024 10/12/2024 Orders Only [facility] Scanner 1 scan: (1-Ord) [facility] LABS, 10/12/2024 10/12/2024 Travel 10/11/2024 Lab Requisition [facility] [phone] Unknown, Doctor 10/10/2024 Orders Only [facility] Scanner 1 scan: (1-Ord) MARIA E, RPR, 10/10/2024 10/10/2024 Orders Only [facility] Scanner 1 scan: (1-Ord) MARIA E, BLOOD TYPE ANTIBODY SCREEN, 10/10/2024 10/10/2024 Orders Only [facility] Scanner 1 scan: (1-Ord) MARIA E H+C, RESULTS, 10/10/2024 10/06/2024 Nurse Triage [facility] [address] [place] [address] Kimberly Sánchez MD Fall 10/06/2024 Travel 10/04/2024 1:35 PM TOOL TROUBLE SHOOTER OB Encounter [facility] [address] [place] [address] Kimberly Sánchez MD Care (37wk 1d) 10/04/2024 Travel 09/27/2024 3:40 PM TOOL TROUBLE SHOOTER OB Encounter [address] [place] [address] Kimberly Sánchez MD Care (36w 1d) 09/27/2024 Travel 09/25/2024 9:45 AM TOOL TROUBLE SHOOTER Ancillary Procedure [address] [place] [address] 09/24/2024 Travel 09/13/2024 3:40 PM TOOL TROUBLE SHOOTER OB Encounter [address] [place] [address] Kimberly Sánchez MD Care (34w 1d/Cyst drained and would like the catheter removed if possible./URQ pain is increasing/Constipa tion due to Iron supplement/BP at home has been good.) 09/13/2024 Travel 09/08/2024 Travel 09/07/2024 4:00 PM TOOL TROUBLE SHOOTER Ancillary Procedure [facility] [address] [facility] [place] [address] 09/07/2024 Travel 09/02/2024 Travel 08/31/2024 3:40 PM TOOL TROUBLE SHOOTER OB Encounter [address] [facility] [address] Kimberly Sánchez MD Care (32w 2d/Check cyst, seems to be getting myrna); Immunization/Inject ion 08/30/2024 Travel 08/17/2024 3:40 PM TOOL TROUBLE SHOOTER OB Encounter [facility] [address] [facility] [address] Kimberly Sánchez MD Care (30w 2d) 08/17/2024 Telephone [facility] [address] [facility] [address] Kimberly Sánchez MD Lab (Phone call in regards to lab ) 08/17/2024 Travel 08/12/2024 Travel 07/31/2024 9:55 AM TOOL TROUBLE SHOOTER OB Encounter [facility] [address] [facility] [address] Kimberly Sánchez MD Care (27w 6d/Cyst in vaginal area that is reoccurring and is there./81mg aspirin when she should be taking it, how long should she be taking it. ) 07/31/2024 Travel 07/29/2024 Travel from Last 3 Months Immunizations Immunization Administration Dates Next Due AMB Influenza, IIV4 PF (=>6 mos Flulaval,Fluzone Fluarix)(Flu Clinic Only) 05/27/2017 COVID-19 VACCINE SPIKEVAX (M ODERNA 50MCG/0.5ML) 12YO+ PFS 05/15/2024 COVID-19 vaccine (Moderna Chava cody 50mcg/0.25mL) PF, MDV 08/07/2021 DTP 10/03/1998, 5,1993,06/02,1993 HIB PRP-OMP (PedvaxHIB) 08/06/1994,08/14,1993,04/1993 Hepatitis B (Peds) 1993,1993, 993 Human Papilloma Virus Vaccine 11/05/2008, 008,03/06/2008 05/06/2008 INFLUENZA, IIV3 PF (AGE >= 6 MO) 05/15/2024 Influenza, IIV4 04/02/2021, 0,05/12/2019,07/03 Influenza, IIV4 (=>6mos) MDV 04/19/2020,05/12/20 19 Influenza,CCIIV4 PRESERV FREE 06/19/2022 MENINGOCOCCAL VACCINE 2 VIAL 2MO-55YO (MENVEO) 03/10/2011 MMR 07/29/2005,10/03/1998,05/04/1994 Oral Polio Vaccine 10/03/1998, 5,1993,04/1993 RSV, Bivalent Vaccine Recons tituted (Abrysvo 120MCG/0.5mL) 08/31/2024 Tdap 07/31/2024, 1,09/07/2014,07/03 Varicella Vaccine 03/10/2011 Family History Medical History Relation Name Comments Hypertension Father Cancer-colon Maternal Grandmother Cancer-breast Mother remission Hypertension Mother Heart Disease Other MGGF Heart Disease Paternal Grandfather stents , CHF Relation Name Status Comments Child Aneesh Alive Father Maternal Grandmother Mother Other Paternal Grandfather Social History Tobacco Use Types Packs/Day Years Used Date Smoking Tobacco: Never Smokeless Tobacco: Never Tobacco Cessation:Counseling Given: Yes Alcohol Use Standard Drinks/Week Comments Not Currently 0 (1 standard drink = 0.6 oz pur e alcohol) occasional Humiliation, Afraid, Rape, and Kick questionnair e Answer Date Recorded Fear of Current or Ex-Partner No Emotionally Abused No 01/25/2019 Physically Abused No 01/25/2019 Sexually Abused No 01/25/2019 PHQ-2 Answer Date Recorded PHQ-2 TOTAL SCORE 0 11/29/2023 [facility] [place] of Occupat ional Health - Occupational Stress Questionnaire Answer Date Recorded Feeling of Stress Not at all 01/25/2019 Exercise Vital Sign Answer Date Recorde d Days of Exercise per Week 7 days 2018 Minutes of Exercise per Session 20 min 01/25/2019 Social Connections Answer Date Recorded Do you often feel lonely or isolated from those around you? 0 03/16/2024 Financial Resource Strain Answer Date R ecorded Difficulty of Paying Living Expenses 3 03/16/2024 Difficulty of Paying Living Expenses Not on file 03/16/2024 Food Insecurity Answer Date Recorded Do you worry your food will run out before you are able to buy more? 1 03/16/2024 Transportation Needs Answer Date Record ed Does lack of transportation keep you from medica l appointments? 1 03/16/2024 Does lack of transportation keep you from work, meetings or getting things that you need? 1 03/16/2024 Housing Stability Answer Date Recorded What is your housing situation today? 1 03/16/2024 Interpersonal Safety Answer Date Record ed Are you being hit, kicked, p ushed or yelled at (see row info)? No 03/31/2024 Interpersonal Safety Abuse 12 - 18 Not on file 03/31/2024 Interpersonal Safety Ambulatory Vulnerability No t on file 03/31/2024 Utilities Answer Date Recorded Do you have trouble paying f or utilities (for example, heat, electricity, water, phone)? 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 Not on file Not on file Not on file Obstetrics History Para Term AB IAB SAB Ectopic Multiple Livin g Live Births 2 1 1 1 1 Date Outcome GA Total Labor Labor/2nd/3rd Weight Sex Type Anes PTL Juany A1 A5 Name Clin 2020 Term 37w 2d 4h 05m M Epidur al Livin g Eloise Little MD Complications:Hematoma Delivery Location:Hospital ( [place]) Summary Episode Dates Number of Fetuses Estimated Date of Delivery 03/16/2024 - Present (10/17/2024) 10/24/2024 (set by Kimberly Sánchez MD on 03/16/2024 based on Last Menstrual Period on 01/18/2024 (Exact Date)) Dating Summary Based On JENNY GA Diff Last Menstrual Period on 01/18/2024 (Exact Date) 10/24/2024 Working Vitals Date GA Fund Present FHR Mvmt BP Weight Edema Alb Glu Ket Dil/ Eff/Sta 4 10w3d Inpatient data not displayed here. See encounter summary. Notes Progress Notes - OB Encounte r - 10/04/2024 - GA:37w1d 10/04/2024 - 37w1d - Kimberly Sánchez MD SUBJECTIVE: Lucille Pringle is a 29 y.o. female at 37+1 weeks. Home blood pressure readings: 113/76, 114/75, 117/76. No abdominal pain, no headache no vision changes and no swelling. No concerns. See visit comments. OBJECTIVE: see OB vitals flow sheet ASSESSMENT : 37+1 weeks gestation with no complications Managing based on home blood pressure readings per [facility] recs. Preeclampsia labs today. PLAN: Labor signs and symptoms reviewed with patient including painful regular contractions or leaking fluid. RTC 1 weeks. Kimberly Sánchez MD .................... 10/04/2024 2:03 PM TROUBLE SHOOTER Progress Notes - OB Encounte r - 09/27/2024 - GA:36w1d 09/27/2024 - 36w1d - Kimberly Sánchez MD SUBJECTIVE: Lucille Pringle is a 29 y.o. female at 36+1 weeks. No concerns. Reassured by normal RUQ ultrasound last week. Does not feel like bartholin cyst has reoccurred since word catheter removal. Home and work blood pressure are 106-110/70s. See visit comments. OBJECTIVE: see OB vitals flow sheet ASSESSMENT : 36+1 weeks gestation History of pp preeclampsia, on ASA. White coat HTN. Per perinatology, ok to manage based on home readings. PLAN: labor signs and symptoms reviewed with patient including pain, cramping, bleeding or leaking fluid. GBS testing today. RTC 1 weeks. Kimberly Sánchez MD .................... 09/27/2024 3:47 PM TROUBLE SHOOTER Progress Notes - OB Encounte r - 09/13/2024 - GA:34w1d 09/13/2024 - 34w1d - Kimberly Sánchez MD SUBJECTIVE: Lucille Pringle is a 29 y.o. female at 34+1 weeks. Had a word catheter placed last week, is due to come out this week. Home blood pressures 110s/70s, same at work. Continues to have RUQ pain, feels better with counter pressure, so thinks it's related to baby positioning. It is worse after eating. Better if laying on her left side. Had Word catheter placement last week, Dr. Ingrid Leal out of the office this week, but catheter due to come out. Staff said this could be done at our visit today. No concerns. See visit comments. OBJECTIVE: see OB vitals flow sheet Word catheter in place, the catheter was cut with a sterile scissors just proximal to the valve, bulb emptied of saline and catheter was easily removed. Patient tolerated procedure well. US 09/08/24 Normal biophysical profile score 8/8. Sonographic gestational age 32 weeks 6 days and a sonographic due date 10/27/2024. Good correlation with dates. Normal interval growth Estimated weight 16th percentile. Abdominal circumference 28th percentile. Femur length 3rd percentile. ASSESSMENT : 34+1 weeks gestation History of pp preeclampsia, on ASA. Per perinatology, ok to manage based on home readings. PLAN: labor signs and symptoms reviewed with patient including pain, cramping, bleeding or leaking fluid. To be cautious, preeclampsia labs completed today and RUQ ultrasound ordered. RTC 2 weeks. Kimberly Sánchez MD .................... 09/13/2024 3:43 PM TROUBLE SHOOTER Progress Notes - OB Encounte r - 08/31/2024 - GA:32w2d 08/31/2024 - 32w2d - Kimberly Sánchez MD SUBJECTIVE: Lucille Pringle is a 29 y.o. female at 32+2 weeks. Bartholin cyst is a little bigger. Wonders if it should or shouldn't be treated prior to delivery? Continues to have RUQ pain intermittently. It is worst after lunch, so thinks indigestion. Helps to stretch out the side. 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 See visit comments. OBJECTIVE: see OB vitals flow sheet ASSESSMENT : 32+2 weeks gestation History of pp preeclampsia, on ASA. Per perinatology, ok to manage based on home readings. PLAN: labor signs and symptoms reviewed with patient including pain, cramping, bleeding or leaking fluid. Management Tech consult to discuss whether or not to treat the cyst during . RSV vaccine given today. RTC 2 weeks. Growth and BPP at that visit. Kimberly Sánchez MD .................... 08/31/2024 3:49 PM TROUBLE SHOOTER Progress Notes - OB Encounte r - 08/17/2024 - GA:30w2d 08/17/2024 - 30w2d - Kimberly Sánchez MD SUBJECTIVE: Lucille Pringle is a 29 y.o. female at 30+2 weeks. Home blood pressure are 110s/70s. Has been having a sharp RUQ pain, it seems to come and go. Position changes can help. Also treating with tums help. No swelling, no vision changes or headaches. No concerns. See visit comments. OBJECTIVE: see OB vitals flow sheet ASSESSMENT : 30+2 weeks gestation with no complications PLAN: labor signs and symptoms reviewed with patient including pain, cramping, bleeding or leaking fluid. Preeclampsia labs done today given prior history preeclampsia/gestational HTN and new RUQ pain. blood pressure is very well controlled at home. Home cuff is consistent with ours today RTC 2 weeks with growth BPP. Kimberly Sánchez MD .................... 08/17/2024 3:51 PM TROUBLE SHOOTER Progress Notes - OB Encounte r - 07/31/2024 - GA:27w6d 07/31/2024 - d - Kimberly Sánchez MD SUBJECTIVE: Lucille Pringle is a 29 y.o. female at 27+6 weeks. Home blood pressure readings 110s/70s consistently. Has redeveloped a bartholin cyst. It is not very painful, so doesn't want to do anything about it yet. See visit comments. OBJECTIVE: see OB vitals flow sheet 3 cm left bartholin gland cyst, nontender, no erythema ASSESSMENT : 37+6 weeks gestation Chronic vs white coat htn with history of pp preeclampsia. Home blood pressure readings are normal. On 81 mg ASA. Reviewed MPP consult note, ok to continue to use home blood pressure readings to guide diagnosis since home cuff has been verified to be accurate. Bartholin gland cyst PLAN: labor signs and symptoms reviewed with patient including pain, cramping, bleeding or leaking fluid. Continue home blood pressure monitoring. TDaP today Diabetes, hemoglobin and syphilis screening. Will try warm compresses/sitz baths for bartholin cyst, if symptoms/signs of infection, will reach out. Since this is recurrent, may need word catheter placement by biometrics head RTC 2 weeks. Kimberly Sánchez MD .................... 07/31/2024 10:09 AM TROUBLE SHOOTER Progress Notes - OB Encounte r - 07/03/2024 - GA:23w6d 07/03/2024 - d - Kimberly Sánchez MD SUBJECTIVE: Lucille Pringle is a 29 y.o. female at 23+6 weeks. Home blood pressure readings 110s/90s. No symptoms of pre-e No concerns. See visit comments. OBJECTIVE: see OB vitals flow sheet ASSESSMENT : 23+6 weeks gestation Chronic vs white coat htn with history of pp preeclampsia. Home blood pressure readings are normal. On 81 mg ASA. Reviewed MPP consult note, ok to continue to use home blood pressure readings to guide diagnosis since home cuff has been verified to be accurate. PLAN: labor signs and symptoms reviewed with patient including pain, cramping, bleeding or leaking fluid. RTC 4 weeks. Kimberly Sánchez MD .................... 07/03/2024 3:20 PM TROUBLE SHOOTER Progress Notes - OB Encounte r - 06/05/2024 - GA:19w6d 06/05/2024 - d - Kimberly Sánchez MD SUBJECTIVE: Lucille Pringle is a 29 y.o. female at 19+6 weeks. Home blood pressure readings this week 110/60s. Has been having left sided sciatica. 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 See visit comments. OBJECTIVE: see OB vitals flow sheet ASSESSMENT : 19+6 weeks gestation Chronic vs white coat htn with history of pp preeclampsia. Home blood pressure readings are normal. On 81 mg ASA PLAN: labor signs and symptoms reviewed with patient including pain, cramping, bleeding or leaking fluid. RTC 4 weeks. Kimberly Sánchez MD .................... 06/05/2024 3:17 PM TROUBLE SHOOTER Progress Notes - OB Encounte r - 05/15/2024 - GA:16w6d 05/15/2024 - w6d - Kimberly Sánchez MD SUBJECTIVE: Lucille Pringle is a 29 y.o. female at 16+6 weeks. Is feeling better. Has tried to work more on hydration and getting in extra electrolytes. She also restarted B6 and unisom. Is making it through work days without feeling weak and short of breath. Home blood pressure readings 110s/70s. See visit comments. OBJECTIVE: see OB vitals flow sheet ASSESSMENT : 16+6 weeks gestation Chronic vs white coat htn with history of pp preeclampsia. Home blood pressure readings are normal. On 81 mg ASA PLAN: labor signs and symptoms reviewed with patient including pain, cramping, bleeding or leaking fluid. RTC 4 weeks with ultrasound. Flu and covid vaccines today. Kimberly Sánchez MD .................... 05/15/2024 3:38 PM Progress Notes - OB Encounte r - 04/17/2024 - GA:12w6d 04/17/2024 - 12wd - Kimberly Sánchez MD SUBJECTIVE: Lucille Pringle is a 29 y.o. female at 12+6 weeks. No concerns. Home blood pressure readings are within normal range. See visit comments. OBJECTIVE: see OB vitals flow sheet Home blood pressure cuff 129/94 ASSESSMENT : 12+6 weeks gestation with no complications Hx pp preeclampsia, reviewed MFM consult note. Patient started 81 mg asa this week. PLAN: Warning signs and symptoms reviewed with patient including pain, cramping, bleeding or leaking fluid. RTC 4 weeks. 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 04/17/2024 7:40 AM Progress Notes - Hospital En counter - 03/31/2024 - GA:10w3d 03/31/2024 - w - Christiane Bertrand RN TELEHEALTH As the RN for this telehealth service, I attest that I introduced myself to the patient, provided my credentials, disclosed my location, and determined that, based on a review of the patients chart and/or a discussion with members of the patient's treatment team, a virtual visit is an appropriate and effective means of providing this service. The patient and I mutually agree that this visit is appropriate. This consult was done virtually with her in her home. No vital signs or heart rates were taken for this visit [facility] Consultation Visit Patient scheduled for consultation due to h/o of pre-e Is currently @ 10w3d. She was referred by Kimberly Sánchez MD The FOB is Eliu. He is the father of this and the previous . Assessment Histories reviewed today include: Past Medical History, Past Surgical History, Social History and Family History and Obstetric History. Refer to the corresponding sections of the history section of [facility] chart and the [facility] Navigator for details. Comments under Consult in problem list updated after review with patient. Assessment: Patient's perception of movement: Has not felt movement yet. Normal movement discussed. Education Some basic routine education done during assessment. See patient education section for details. Patient states that all her questions were answered. Scheduled to consult with Dr. Armenta today. Detailed verbal report given. After Visit Summary created and discussed with patient on discharge. Yes After Visit summary offered and supplied to patient? Patient will view via [employer]. Is referring provider within [facility]? yes Consult note forwarded: N/A RN time: 20 min Christiane Bertrand RN 03/31/2024 10:07 AM Progress Notes - OB Encounte r - 03/16/2024 - GA:8w2d 03/16/2024 - 8w2d - Kimberly Sánchez MD FIRST OB VISIT HPI: Lucille Pringle is a 29 y.o. female at Unknown with kemp intrauterine here today for a initial OB exam. Estimated due date is Estimated Date of Delivery: None noted. based on LMP, consistent with 6 week ultrasound. blood pressure has been 110s/70s at home. Has had a few headaches intermittently. Nausea/Vomiting: yes Breast tenderness: yes Fatigue: yes Bleeding: yes, had spotting for a week, none now since her ultrasound Taking vitamins: yes Options of sequential screen, cell-free DNA testing, amniocentesis were discussed. Patient is not interested in pursuing testing. AMA: no Previous : no OB History Para Term AB Living 2 1 1 1 SAB IAB Ectopic Multiple Live Births 1 # Outcome Date GA Lbr Jatinder/2nd Weight Sex Type Anes PTL Lv 2 Current 1 Term 07/08/21 37w2d M EPIDURAL JUANY Complications: Hematoma Past Medical History: . Date Other atopic dermatitis and related conditions Past Surgical History: . Laterality Date NO PREVIOUS SURGERY Family History Problem Relation Age of Onset Heart Disease Other MGGF Cancer-colon Maternal Grandmother 56 Heart Disease Paternal Grandfather 68 stents, CHF Cancer-breast Mother 51 Social History Tobacco Use Smoking status: Never Smokeless tobacco: Never Substance Use Topics Alcohol use: Not Currently Comment: occasional Current Outpatient Medications Medication Sig Cetirizine 10 mg cap Take by mouth. fluticasone (50 mcg per actuation) nasal solution (FLONASE) INHALE 1 SPRAY IN EACH NOSTRIL EVERY DAY vit 28/iron fum/folic (multivitamin folic acid 1 mg) Take 1 Tablet by mouth once daily. No current facility-administered medications for this visit. Medications have been reviewed by me and are current to the best of my knowledge and ability. ALLERGIES Prednisone MENTAL HEALTH HISTORY History of psychiatric diagnosis: Anxiety Current mental health provider: Yes: Princess Currently taking any psychiatric medications? No, but is working with a mental health sales coach and feels good. INFECTION HISTORY Current Drug Use: none Relevant infection history from OB Questionnaire: none REVIEW OF SYSTEMS Comprehensive ROS complete and negative other than noted in HPI and on OB Questionnaire. PHYSICAL EXAM BP 142/90 (Cuff Site: Left Arm, Position: Sitting, Cuff Size: Adult Regular) Pulse (!) 131 Wt 55.8 kg (123 lb) LMP 01/18/2024 (Exact Date) SpO2 100% No BMI 22.50 kg/m General Appearance: Alert, appropriate appearance for age. No acute distress. HEENT Exam: Grossly normal. Neck/Thyroid Exam: Supple, no masses, nodes or enlargement. Lungs: Clear to auscultation bilaterally. Breast Exam: Not indicated. Cardiovascular Exam: Regular rate and rhythm. S1, S2, no murmur. Abd: Soft, non-tender, no masses or organomegaly. Skin: no rashes or lesions. Lymphatics: no nodes palpable. Psychiatric Exam: Alert and oriented x 3, appropriate affect. Pelvic Exam: not indicated ASSESSMENT/PLAN 29 y.o. at Unknown with kemp intrauterine . ICD-10-CM 1. Encounter for supervision of other normal , first trimester Z34.81 ANTI HIV 1/2 ABORH TYPE ANTIBODY SCREEN HBSAG (HBS) TREPONEMA PALLIDUM RUBELLA IMMUNE STATUS UA W/ SEDIMENT EXAM REFLEXED PER CRITERIA URINE CULTURE GC CHLAMYDIA TRACH PROBE CBC AND DIFFERENTIAL ALT (SGPT) AST (SGOT) CREATININE PROTEIN/CREAT RATIO,URINE ANTI HCV AMB CONSULT TO MATERNAL- MEDICINE 2. Need for hepatitis C screening test Z11.59 ANTI HCV 3. Hx of preeclampsia, prior , currently , first trimester O09.291 AMB CONSULT TO MATERNAL- MEDICINE 4. Borderline hypertension R03.0 Satisfactory exam. Demonstrates appropriate and health-seeking behaviors toward her . Verbalizes good understanding of care schedule and the importance of coming to each visit as scheduled. Start/continue vitamins. Reviewed labs. She was encouraged to call the office with any questions or concerns. Body mass index is 22.5 kg/m . Diet and expected weight gain discussed with patient. Given her history of severe post preeclampsia, recommend starting 81 mg ASA in second trimester. Baseline preeclampsia labs done today and perinatology consult placed. Home blood pressure readings are normal despite being high in clinic (this is true even between pregnancies). Will have MFM give recommendations for if/when to initiate antihypertensive treatment. DEPRESSION SCREEN 11/25/2023 8:49 PM 11/29/2023 7:00 AM PHQ Depression Screening Date of PHQ exam (doc flow) 11/25/2023 11/29/2023 1. Lack of interest/pleasure 0 - Not at all 0 - Not at all 2. Feeling down/depressed 0 - Not at all 0 - Not at all PHQ-2 TOTAL SCORE 0 0 3. Trouble sleeping 0 - Not at all 4. Decreased energy 0 - Not at all 5. Appetite change 0 - Not at all 6. Feelings of failure 0 - Not at all 7. Trouble concentrating 0 - Not at all 8. Activity level 0 - Not at all 9. Hurting yourself 0 - Not at all PHQ-9 TOTAL SCORE 0 PHQ-9 Severity Level none Functional Impairment not applicable Intervention: Not Depressed Kimberly Sánchez MD Last Filed Vital Signs Vital Sign Reading Time Taken Comments Blood Pressure 132/88 10/16/2024 9:50 AM CDT Man ual Pulse 84 10/16/2024 9:50 AM CDT Temperature 36.8 C (98.3 F) 07/15/2024 9:39 AM TOOL TROUBLE SHOOTER Respiratory Rate 18 07/15/2024 9:39 AM TOOL TROUBLE SHOOTER Oxygen Saturation 99% 10/16/2024 9:50 AM CDT Inhaled Oxygen Concentration - - Weight 63.4 kg (139 lb 12.8 oz) 10/16/2024 9:50 AM CDT Height 157.5 cm (5' 2) 10/21/2022 4:07 PM CDT Body Mass Index 25.57 10/21/2022 4:07 PM CDT Plan of Treatment Health Maintenance Due Date Last Done Comments BMI (ht and wt on same day) for age 18+ 10/22/2023 10/21/2022, 09/08/2021, 07/16/2021, Additional history exists Depression screening for age 12+ 11/28/2024 11/29/2023, 10/21/2022, 07/24/2020, Additional history exists Pap test for age 21-65 10/22/2027 , 10/21/2022, 01/25/2019, Additional history exists Tetanus booster 07/31/2034 07/31/2024, 04/03, 09/07/2014, Additional history exists HIV for age 15-65 Completed 03/16/2024, 11/15/2020 Hepatitis C screening for age 18-79 Completed 03/16/2024 COVID-19 vaccine series Completed 05/15/20 24, 06/19/2022, 08/07/2021, Additional history exists Influenza Vaccine Completed 05/15/2024, , 04/02/2021, Additional history exists Tdap Completed 07/31/2024, 04/03, 09/07/2014, Additional history exists Pneumococcal series for age 6-49 Aged Out No longer eligible based on patient's age to complete this topic Procedures Procedure Name Priority Date/Time Associated Diagnosis Comments CBC WITH AUTO DIFFERENTIAL STAT 10/16/2024 9:34 AM CDT Preeclampsia in period CBC WITH AUTO DIFFERENTIAL STAT 10/16/2024 9:34 AM CDT Preeclampsia in period CREATININE STAT 10/16/2024 9:34 AM CDT Preeclampsia in period ALT (SGPT) STAT 10/16/2024 9:34 AM CDT Preeclampsia in period AST (SGOT) STAT 10/16/2024 9:34 AM CDT Preeclampsia in period SCAN-LABORATORY REPORT 5 12:00 AM CDT SCAN-LABORATORY REPORT 5 12:00 AM CDT SCAN-LABORATORY REPORT 5 12:00 AM CDT SCAN-LABORATORY REPORT 5 12:00 AM CDT SCAN-CT INTERPRETATION 5 12:00 AM CDT PATH TISSUE EXAM PLACENTA Routine 10/11/2024 2:45 AM CDT LAB TRACKING EVENT Routine 10/10/2024 12 :37 PM CDT SCAN-LABORATORY REPORT 5 12:00 AM CDT SCAN-LABORATORY REPORT 5 12:00 AM CDT SCAN-LABORATORY REPORT 5 12:00 AM CDT PROTEIN/CREAT RATIO,URINE Routine 10/04/2024 2:24 PM TOOL TROUBLE SHOOTER Hx of preeclampsia, prior , currently , third trimester CBC WITH AUTO DIFFERENTIAL Routine 10/04/2024 2:24 PM TOOL TROUBLE SHOOTER Hx of preeclampsia, prior , currently , third trimester ALT (SGPT) Routine 10/04/2024 2:24 PM TOOL TROUBLE SHOOTER Hx of preeclampsia, prior , currently , third trimester AST (SGOT) Routine 10/04/2024 2:24 PM TOOL TROUBLE SHOOTER Hx of preeclampsia, prior , currently , third trimester CREATININE Routine 10/04/2024 2:24 PM TOOL TROUBLE SHOOTER Hx of preeclampsia, prior , currently , third trimester VAGINAL/RECTAL OB STREP PCR Routine 09/27/2024 4:56 PM TOOL TROUBLE SHOOTER Encounter for supervision of other normal , third trimester US ABDOMEN LIMITED RUQ Routine 9:56 AM TOOL TROUBLE SHOOTER Abdominal pain, RUQ (right upper quadrant) CBC WITH AUTO DIFFERENTIAL Routine 09/13/2024 4:17 PM TOOL TROUBLE SHOOTER COMP METABOLIC PANEL Routine 09/13/2024 4:17 PM TOOL TROUBLE SHOOTER Weakness Sinus tachycardia PROTEIN/CREAT RATIO,URINE Routine 09/13/2024 4:16 PM TOOL TROUBLE SHOOTER Hx of preeclampsia, prior , currently , third trimester Abdominal pain, RUQ (right upper quadrant) US OB BIOPHYSICAL PROFILE AND FOLLOW UP SINGLE Routine 09/08/2024 10:14 AM TOOL TROUBLE SHOOTER Hx of preeclampsia, prior , currently , first trimester Encounter for supervision of other normal , second trimester DIFFERENTIAL MANUAL (QUEST REFLEX ONLY) Routine 08/18/2024 11:52 AM TOOL TROUBLE SHOOTER HEPATIC FUNCTION PANEL Routine 11:52 AM TOOL TROUBLE SHOOTER Hx of preeclampsia, prior , currently , first trimester Abdominal pain, RUQ (right upper quadrant) CBC WITH AUTO DIFFERENTIAL Routine 08/18/2024 11:52 AM TOOL TROUBLE SHOOTER Hx of preeclampsia, prior , currently , first trimester Abdominal pain, RUQ (right upper quadrant) CREATININE Routine 08/18/2024 11:52 AM TOOL TROUBLE SHOOTER Hx of preeclampsia, prior , currently , first trimester Abdominal pain, RUQ (right upper quadrant) PROTEIN/CREAT RATIO,URINE Routine 08/17/2024 4:15 PM TOOL TROUBLE SHOOTER Hx of preeclampsia, prior , currently , first trimester TREPONEMA PALLIDUM Routine 07/31/2024 10 :37 AM TOOL TROUBLE SHOOTER Encounter for supervision of other normal , second trimester GLUCOSE TOLERANCE, GESTATIONAL SCREEN 1H Routine 07/31/2024 10:37 AM TOOL TROUBLE SHOOTER Encounter for supervision of other normal , second trimester ANTI HIV 1/2 Routine 03/16/2024 12:54 PM CDT Encounter for supervision of other normal , first trimester ANTI HCV Routine 03/16/2024 12:54 PM CDT Need for hepatitis C screening test Encounter for supervision of other normal , first trimester HPV HIGH RISK Routine 10/21/2022 4:30 PM CDT Screening for cervical cancer from Last 3 Months or Most Recently Relevant to Health Maintenance Results * (ABNORMAL) CBC WITH AUTO DIFFERENTIAL (10/16/2024 9:34 AM CDT) WHITE BLOOD COUNT 5.4 4.5 - 11.0 thou/cu mm 10/16/2024 12:14 PM CDT [facility] RED BLOOD COUNT 4.05 4.00 - 5.20 mil/cu mm 10/16/2024 12:14 PM T [facility] HEMOGLOBIN 11.4(L) 12.0 - 16.0 g/dL 10/16/2024 12:14 PM T [facility] HEMATOCRIT 36.4 33.0 - 51.0 % 10/16/2024 12:14 PM [facility] MCV 90 80 - 100 fL 10/16/2024 12:14 PM [facility] MCH 28.1 26.0 - 34.0 pg 10/16/2024 12:14 PM [facility] MCHC 31.3(L) 32.0 - 36.0 g/dL 10/16/2024 12:14 PM [facility] RDW 13.6 11.5 - 15.5 % 10/16/2024 12:14 PM [facility] PLATELET COUNT 336 140 - 440 thou/cu mm 10/16/2024 12:14 PM [facility] MPV 9.4 6.5 - 11.0 fL 10/16/2024 12:14 PM [facility] % NEUT 68.4 % 10/16/2024 12:14 PM [facility] % LYMPH 19.7 % 10/16/2024 12:14 PM [facility] % MONO 8.5 % 10/16/2024 12:14 PM [facility] % EOS 2.8 % 10/16/2024 12:14 PM [facility] % BASO 0.6 % 10/16/2024 12:14 PM [facility] ABSOLUTE NEUTROPHILS 3.7 1.7 - 7.0 thou/cu mm 10/16/2024 12:14 PM [facility] ABSOLUTE LYMPHOCYTES 1.1 0.9 - 2.9 thou/cu mm 10/16/2024 12:14 PM [facility] ABSOLUTE MONOCYTES 0.5 <0.9 thou/cu mm 10/16/2024 12:14 PM [facility] ABSOLUTE EOSINOPHILS 0.2 <0.5 thou/cu mm 10/16/2024 12:14 PM [facility] ABSOLUTE BASOPHILS 0.0 <0.3 thou/cu mm 10/16/2024 12:14 PM [facility] Blood BLOOD SPECIMEN / Unknown [facility] / Unknown 10/16/2024 9:34 AM CDT 10/16/2024 9:34 AM CDT Narrative [facility] - 10/16/2024 12:14 PM CDT Send to [facility] Kimberly Sánchez MD [facility]Y [facility] Performing Organization Address City/[facility]/ZIP Co de Phone Number [facility] [address] [place] [address] * CREATININE (10/16/2024 9:34 AM CDT) Only the most recent of3 resultswithin the time period is included. eGFR >90 >90 mL/min/1.7 3m2 10/16/2024 12:19 PM CDT [facility] Comment:As of 2021, eG FR is calculated by the CKD-EPI creatinine equation without race adjustment. eGFR can be influenced by muscle mass, exercise, and diet. The reported eGFR is an estimation only and is only applicable if the renal function is stable. CREATININE 0.56 0.50 - 0.90 mg/dL 10/16/2024 12:19 PM CDT [facility] Blood BLOOD SPECIMEN / Unknown [facility] / Unknown 10/16/2024 9:34 AM CDT 10/16/2024 9:34 AM CDT Kimberly Sánchez MD CHEMISTRY Final R [facility] Performing Organization Address City/[facility] Co de Phone Number [facility] [address] [place] [address] * (ABNORMAL) ALT (SGPT) (10/16/2024 9:34 AM CDT) Only the most recent of2 resultswithin the time period is included. ALT (SGPT) 39(H) 10 - 35 IU/L 10/16/2024 12:19 PM CDT [facility] Blood BLOOD SPECIMEN / Unknown [facility] / Unknown 10/16/2024 9:34 AM CDT 10/16/2024 9:34 AM CDT us Kimberly Sánchez MD CHEMISTRY [facility] Performing Organization Address City/[facility] Co de Phone Number [facility] [address] [place] [address] * AST (SGOT) (10/16/2024 9:34 AM CDT) Only the most recent of2 resultswithin the time period is included. AST (SGOT) 27 10 - 35 IU/L 10/16/2024 12:19 PM CDT [facility] Blood BLOOD SPECIMEN / Unknown [facility] / Unknown 10/16/2024 9:34 AM CDT 10/16/2024 9:34 AM CDT us Kimberly Sánchez MD CHEMISTRY Final R [facility] Performing Organization Address [facility] Co de Phone Number [facility] [address] [place] [phone] * SCAN-LABORATORY REPORT (10/15/2024 12:00 AM CDT) Only the most recent of7 resultswithin the time period is included. us Scanner OTHER Final Result * SCAN-CT INTERPRETATION (10/12/2024 12:00 AM CDT) Anatomical Region Laterality Modality Other us Scanner OTHER Final Result * PATH TISSUE EXAM PLACENTA (10/11/2024 2:45 AM CDT) Case Report Pathology Report Case: [id number] Authorizing Provider: Unknown, Doctor Collected: 10/11/2024 0245 Ordering Location: [facility] Received: 10/11/2024 1516 Pathologist: Natalie Rea MD Specimen: Placenta 10/13/2024 5:[address] PM [address] [facility] LAB[facility]AT[facility] Final Diagnosis A) PLACENTA, VAGINAL DELIVERY: 1. Third trimester kemp placenta with the following characteristics: a. Weight: 478 grams (25-50th percentile for gestational age) b. Membranes/ surface: Negative for chorioamnionitis c. Umbilical cord: Three vessel cord Negative for funisitis d. Disc/Villi: Chorionic villi consistent with gestational age Negative for villitis Placental disc without infarcts Intervillous thrombus, involving 5% of the disc e. Decidua/basal plate: No diagnostic abnormalities identified 10/13/2024 5:22 PM CDT [facility]-C ENTRAL LABORATORY at 1722 CDT Comment Intraplacental hematomas (intervillous thrombi) are usually innocuous when small and few in number, as in this case. When numerous, they may be associated with significant -maternal hemorrhage, leading to anemia and its complications. The patient's clinical history of hypertension and pre-eclampsia is noted. Some histologic features that can be associated with maternal hypertensive disorders include decidual vasculopathy, infarcts, abruption, villous maldevelopment, and small placental size. In this case, these features are not seen. 10/13/2024 5:22 PM CDT [facility] Clinical Information Vaginal delivery at 38+1 weeks gestational age. Maternal hypertension preeclampsia. 10/13/2024 5:22 PM CDT [facility] Gross Description A) Received fresh labeled with the patient's name and placenta, is a kemp placenta with attached membranes and umbilical cord. The marginally inserted membranes are pink-call and semitranslucent, and the point of rupture measures 4.4 cm from the edge of the placental disc. The paracentrally inserted umbilical cord (61.9 cm long and 1.0 to 1.3 cm in diameter) is call-white and focally bluegray with 2-3 coils per 10 cm and no distinct true/false knots. The umbilical cord inserts 4.5 cm from the edge of the placental disc, and displays 3 distinct vessels on cut surface. The placental disc (23.0 x 16.4 x 2.0 cm and 478 g) surface is call and bluegray with prominent unremarkable vasculature and centrally concentrated call-white subchorionic fibrin deposition occupying approximately 5-10% of the surface. The maternal surface is pink-call and red-brown with complete cotyledons, several scattered foci of loosely adherent blood clot material, and minimal possible fibrin deposition occupying approximately 5% of the maternal surface. Serially sectioning the placental disc reveals homogenous spongy purple-red parenchyma with a single centrally located call and red-brown striated parenchyma lesion (1.9 cm in greatest dimension) as well as minimal call fibrin deposition, collectively occupying approximately 5% the specimen in total. No other distinct lesions or abnormalities are grossly identified. Biochemist sections are submitted as follows: 1. Membranes and insertion 2. Umbilical cord 3. Full-thickness central placental disc at umbilical cord insertion site 4-5. Full-thickness central. Disc (parenchymal lesion included in cassette 5) ADW 10/12/2024 10/13/2024 5:22 PM CDT [facility] Keen Impressions [facility]- ENTRAL LABORATORY Microscopic Description The final diagnosis is based on microscopic examination of appropriate sections of all specimens. 10/13/2024 5:22 PM CDT [facility] [facility] Additional Information Interpreted at [facility] - [address] [facility] [address] [place] [address] 10/13/2024 5:22 PM CDT [facility] Tissue SPECIMEN FROM [facility] / Unknown 10/11/2024 2:45 AM CDT 10/11/2024 3:16 PM CDT Doctor Unknown PATHOLOGY/CYTOLOGY Final Result Performing Organization Address [facility] de Phone Number [facility] [address] [address], [place] * LAB TRACKING EVENT (10/10/2024 12:37 PM CDT) Other (Other) Client Collect / Unknown 10/10/2024 12:37 PM CDT 10/11/2024 3:00 PM CDT us Doctor Unknown LAB BILL ONLY Final Result Performing Organization Address City/[facility] Co de Phone Number [facility] [address] [address], [place] * PROTEIN/CREAT RATIO,URINE (10/04/2024 2:24 PM TOOL TROUBLE SHOOTER) Only the most recent of3 resultswithin the time period is included. PROTEIN QUANT,RAND URINE 7 1 - 14 mg/dL 10/04/2024 11:16 PM TOOL TROUBLE SHOOTER [facility] CREAT,RANDOM URINE 74.0 28.0 - 217.0 mg/dL 10/04/2024 11:16 PM TOOL TROUBLE SHOOTER [facility] PROT/CREAT RATIO,UR 0.1 <0.2 10/04/2024 11:16 PM TOOL TROUBLE SHOOTER [facility] Urine URINE SPECIMEN / Unknown Non-Blood / Unknown 10/04/2024 2:24 PM TOOL TROUBLE SHOOTER 10/04/2024 2:24 PM TOOL TROUBLE SHOOTER us Kimberly Sánchez MD URINE Final R esult [facility] [address] [place] [address], [place] * (ABNORMAL) CBC AND DIFFERENTIAL (10/04/2024 2:24 PM TOOL TROUBLE SHOOTER) Only the most recent of3 resultswithin the time period is included. [facility] WHITE BLOOD CELL COUNT 8.4 3.8 - 10.8 Thousand/u L [facility] RED BLOOD CELL COUNT 3.84 3.80 - 5.10 Million/uL [facility] HEMOGLOBIN 11.1(L) 11.7 - 15.5 g/dL [facility] HEMATOCRIT 33.0(L) 35.0 - 45.0 % [facility] MCV 85.9 80.0 - 100.0 fL [facility] MCH 28.9 27.0 - 33.0 pg [facility] MCHC 33.6 32.0 - 36.0 g/dL [facility] Comment: For adults, a slight decrease in the calculated MCHC value (in the range of 30 to 32 g/dL) is most likely not clinically significant; however, it should be interpreted with caution in correlation with other red cell parameters and the patient's clinical condition. RDW 12.7 11.0 - 15.0 % [facility] PLATELET COUNT 248 140 - 400 Thousand/u L [facility] MPV 10.5 7.5 - 12.5 fL [facility] ABSOLUTE NEUTROPHILS 5,863 1,500 - 7,800 cells/uL [facility] ABSOLUTE LYMPHOCYTES 1,504 850 - 3,900 cells/uL [facility] ABSOLUTE MONOCYTES 899 200 - 950 cells/uL [facility] ABSOLUTE EOSINOPHILS 101 15 - 500 cells/uL [facility] ABSOLUTE BASOPHILS 34 0 - 200 cells/uL [facility] NEUTROPHILS 69.8 % [facility] LYMPHOCYTES 17.9 % [facility] MONOCYTES 10.7 % [facility] EOSINOPHILS 1.2 % [facility] BASOPHILS 0.4 % [facility] Blood BLOOD SPECIMEN / Unknown 10/04/2024 2:24 PM TOOL TROUBLE SHOOTER 10/04/2024 2:24 PM TOOL TROUBLE SHOOTER Kimberly Sánchez MD HEMATOLOGY Final R esult [employer] [facility] [address] [place] [address], [place] [phone] [facility] [address] [place] [address] * VAGINAL/RECTAL OB STREP PCR (09/27/2024 4:56 PM TOOL TROUBLE SHOOTER) Vaginal/Rectal OB Strep B PCR Negative 09/29/2024 10:37 AM TOOL TROUBLE SHOOTER [facility] Other (Vaginal/Rectal) Non-Blood / Unknown 09/27/2024 4:56 PM TOOL TROUBLE SHOOTER 09/27/2024 4:56 PM TOOL TROUBLE SHOOTER Kimberly Sánchez MD MICROBIOLOGY Final R esult [facility] [address] [place] [address], [place] * US ABDOMEN LIMITED RUQ (09/25/2024 9:56 AM TOOL TROUBLE SHOOTER) Anatomical Region Laterality Modality Abdomen, LIVER Ultrasound 09/25/2024 10:0 8 AM TOOL TROUBLE SHOOTER [facility] 09/25/2024 10:08 AM TOOL TROUBLE SHOOTER Unremarkable right upper quadrant ultrasound. Dictated by Robert Palacios MD @ 09/25/2024 10:08:03 AM (Electronically Signed) Narrative 09/25/2024 10:08 AM TOOL TROUBLE SHOOTER For Patients: As a result of the Cures Act, medical imaging exams and procedure reports are released immediately into your electronic medical record. You may view this report before your referring provider. If you have questions, please contact your health care provider. INDICATION: Right upper quadrant abdomen pain TECHNIQUE: Ultrasound abdomen limited. Sonographic images of the right upper quadrant were obtained using jorgensen-scale and color Doppler images. COMPARISON: None FINDINGS: Liver: Normal in size and echotexture. No masses. No intrahepatic biliary dilatation. Gallbladder: No stones or sludge. Normal wall thickness. No pericholecystic fluid. Common bile duct: 4 mm. Pancreas: Normal. Right kidney: Normal in size. Normal echotexture and cortex. No masses, stones, or hydronephrosis. Vasculature: Proximal abdominal aorta and IVC are normal. Procedure Note Robert Palacios MD - 09/25/2024 For Patients: As a result of the Cures Act, medical imagingexams and procedure reports are released immediately into your electronicmedical record. You may view this report before your referring provider.If you have questions, please contact your health care provider. INDICATION: Right upper quadrant abdomen pain TECHNIQUE: Ultrasound abdomen limited. Sonographic images of the right upperquadrant were obtained using jorgensen-scale and color Doppler images. COMPARISON: None FINDINGS: Liver: Normal in size and echotexture. No masses. No intrahepaticbiliary dilatation. Gallbladder: No stones or sludge. Normal wall thickness. Nopericholecystic fluid. Common bile duct: 4 mm. Pancreas: Normal. Right kidney: Normal in size. Normal echotexture and cortex. No masses,stones, or hydronephrosis. Vasculature: Proximal abdominal aorta and IVC are normal. IMPRESSION: Unremarkable right upper quadrant ultrasound. Dictated by Robert Palacios MD @ 09/25/2024 10:08:03 AM (Electronically Signed) Kimberly Sánchez MD Final R esult * COMP METABOLIC PANEL (09/13/2024 4:17 PM TOOL TROUBLE SHOOTER) GLUCOSE 80 65 - 99 mg/dL [facility] Comment: Fasting reference interval UREA NITROGEN (BUN) 9 7 - 25 mg/dL [facility] CREATININE 0.55 0.50 - 0.97 mg/dL [facility] EGFR 126 > OR = 60 mL/min/1. 73m2 [facility] BUN/CREATININE RATIO SEE NOTE: 6 - 22 (calc) [facility] Comment: Not Reported: BUN and Creatinine are within reference range. SODIUM 137 135 - 146 mmol/L [facility] POTASSIUM 4.0 3.5 - 5.3 mmol/L [facility] CHLORIDE 105 98 - 110 mmol/L [facility] CARBON DIOXIDE 23 20 - 32 mmol/L [facility] CALCIUM 8.8 8.6 - 10.2 mg/dL [facility] PROTEIN, TOTAL 6.5 6.1 - 8.1 g/dL [facility] ALBUMIN 3.8 3.6 - 5.1 g/dL [facility] GLOBULIN 2.7 1.9 - 3.7 g/dL (calc) [facility] ALBUMIN/GLOBULIN RATIO 1.4 1.0 - 2.5 (calc) [facility] BILIRUBIN, TOTAL 0.3 0.2 - 1.2 mg/dL [facility] ALKALINE PHOSPHATASE 89 31 - 125 U/L [facility] AST 16 10 - 30 U/L [facility] ALT 13 6 - 29 U/L [facility] Blood BLOOD SPECIMEN / Unknown 09/13/2024 4:17 PM TOOL TROUBLE SHOOTER 09/13/2024 4:18 PM TOOL TROUBLE SHOOTER Kimberly Sánchez MD CHEMISTRY Final R esult [employer] [facility] [address] [place] [address], [facility] [address] [place] [address] * US OB BIOPHYSICAL PROFILE AND FOLLOW UP SINGLE (09/08/2024 10:14 AM TOOL TROUBLE SHOOTER) Anatomical Region Laterality Modality Ultrasound 09/08/2024 1:30 PM TOOL TROUBLE SHOOTER Impressions 09/08/2024 1:30 PM TOOL TROUBLE SHOOTER Normal biophysical profile score 8/8. Sonographic gestational age 32 weeks 6 days and a sonographic due date 10/27/2024. Good correlation with dates. Normal interval growth. Estimated weight 16th percentile. Abdominal circumference 28th percentile. Femur length 3rd percentile. Dictated by Vinicio Adams MD @ 09/08/2024 1:30:03 PM (Electronically Signed) Narrative 09/08/2024 1:30 PM TOOL TROUBLE SHOOTER For Patients: As a result of the Cures Act, medical imaging exams and procedure reports are released immediately into your electronic medical record. You may view this report before your referring provider. If you have questions, please contact your health care provider. INDICATION: Hx of preeclampsia TECHNIQUE: Real time jorgensen scale imaging of the fetus was performed. COMPARISON: 06/05/2024 FINDINGS: Sonographic imaging demonstrates a single living intrauterine gestation. Fetus demonstrates a regular cardiac rate of 143 beats per minute. Fetus has a vertex position. The placenta lies posteriorly without evidence of placenta previa. Amniotic fluid volume appears normal and there is a single deepest pocket of 5.3 cm. The estimated weight is 1939gm which lies at the 16th %. On the prior OB ultrasound dated 06/05/2024 the estimated weight was at the 34th percentile. The fetus was active and demonstrated normal breathing movements. There was normal flexion and extension of the trunk and extremities. Procedure Note Vinicio Adams MD - 09/08/2024 For Patients: As a result of the Cures Act, medical imagingexams and procedure reports are released immediately into your electronicmedical record. You may view this report before your referring provider.If you have questions, please contact your health care provider. INDICATION: Hx of preeclampsia TECHNIQUE: Real time jorgensen scale imaging of the fetus was performed. COMPARISON: 06/05/2024 FINDINGS: Sonographic imaging demonstrates a single living intrauterine gestation.Fetus demonstrates a regular cardiac rate of 143 beats per minute. Fetushas a vertex position. The placenta lies posteriorly without evidence ofplacenta previa. Amniotic fluid volume appears normal and there is asingle deepest pocket of 5.3 cm. The estimated weight is 1939gmwhich lies at the 16th %. On the prior OB ultrasound dated 06/05/2024 theestimated weight was at the 34th percentile. The fetus was active and demonstrated normal breathing movements. Therewas normal flexion and extension of the trunk and extremities. IMPRESSION: Normal biophysical profile score 8/8. Sonographic gestational age 32 weeks 6 days and a sonographic due date10/27/2024. Good correlation with dates. Normal interval growth. Estimated weight 16th percentile. Abdominal circumference 28thpercentile. Femur length 3rd percentile. Dictated by Vinicio Adams MD @ 09/08/2024 1:30:03 PM (Electronically Signed) us Kimberly Sánchez MD Final R esult * DIFFERENTIAL MANUAL ([facility] REFLEX ONLY) (08/18/2024 11:52 AM TOOL TROUBLE SHOOTER) ABSOLUTE NEUTROPHILS 6,453 1,500 - 7,800 cells/uL [facility] ABSOLUTE LYMPHOCYTES MANUAL 1,908 850 - 3,900 cells/uL [facility] ABSOLUTE MONOCYTES 459 200 - 950 cells/uL [facility] ABSOLUTE EOSINOPHILS 90 15 - 500 cells/uL [facility] ABSOLUTE BASOPHILS 90 0 - 200 cells/uL [facility] NEUTROPHILS 71.7 % [facility] LYMPHOCYTES 21.2 % [facility] MONOCYTES 5.1 % [facility] EOSINOPHILS 1.0 % [facility] BASOPHILS 1.0 % [facility] DIFFERENTIAL, MANUAL NOTE [facility] Comment: Although an automated CBC was ordered, our instrumentation detected an abnormality on your patient's specimen requiring us to perform a manual review. 08/18/2024 11:5 2 AM TOOL TROUBLE SHOOTER 08/18/2024 11:53 AM TOOL TROUBLE SHOOTER Kimberly Sánchez MD LABORATORY Final R esult Performing Organization Address [facility] Co de Phone Number [employer] [address] [address], [facility] [address] [place] [address] * HEPATIC FUNCTION PANEL (08/18/2024 11:52 AM TOOL TROUBLE SHOOTER) Pathologist [facility] PROTEIN, TOTAL 6.4 6.1 - 8.1 g/dL [facility] ALBUMIN 3.7 3.6 - 5.1 g/dL [facility] GLOBULIN 2.7 1.9 - 3.7 g/dL (calc) [facility] ALBUMIN/GLOBULIN RATIO 1.4 1.0 - 2.5 (calc) [facility] BILIRUBIN, TOTAL 0.2 0.2 - 1.2 mg/dL [facility] BILIRUBIN, DIRECT 0.0 < OR = 0.2 mg/dL [facility] BILIRUBIN, INDIRECT 0.2 0.2 - 1.2 mg/dL (calc) [facility] ALKALINE PHOSPHATASE 68 31 - 125 U/L [facility] AST 16 10 - 30 U/L [facility] ALT 15 6 - 29 U/L [facility] Blood BLOOD SPECIMEN / Unknown 08/18/2024 11:52 AM TOOL TROUBLE SHOOTER 08/18/2024 11:53 AM TOOL TROUBLE SHOOTER Kimberly Sánchez MD CHEMISTRY Final R esult Performing Organization Address City/[facility]/ZIP Co de Phone Number [employer] [facility] [address] [place] [address], [facility] [address] [place] [address] * TREPONEMA PALLIDUM (07/31/2024 10:37 AM TOOL TROUBLE SHOOTER) TREPONEMA PALLIDUM Non-Reacti ve Non-Reacti ve 07/31/2024 3:30 PM TOOL TROUBLE SHOOTER [facility] Blood BLOOD SPECIMEN / Unknown [facility] / Unknown 07/31/2024 10:37 AM TOOL TROUBLE SHOOTER 07/31/2024 10:37 AM TOOL TROUBLE SHOOTER Kimberly Sánchez MD SEND OUTS Final R esult [facility] [address] [place] [address], [place] * GLUCOSE,GESTATIONAL (07/31/2024 10:37 AM TOOL TROUBLE SHOOTER) Pathologist [facility] GLUCOSE, GESTATIONAL SCREEN (50G)-140 CUTOFF 72 <140 mg/dL [facility] Blood BLOOD SPECIMEN / Unknown 07/31/2024 10:37 AM TOOL TROUBLE SHOOTER 07/31/2024 10:38 AM TOOL TROUBLE SHOOTER Kimberly Sánchez MD CHEMISTRY Final R esult [employer] [facility] [address] [place] [address], [facility] [address] [place] [address] * ANTI HCV (03/16/2024 12:54 PM CDT) HEPATITIS C ANTIBODY Non-Reacti ve Non-React julia 03/16/2024 11:30 PM CDT [facility] Comment:Please note, per www .CDC.gov: If a patient is known to be at high risk of HCV infection, or is symptomatic, and the physician's suspicion of HCV infection is high, HCV RNA testing is often employed and is of diagnostic value, even after an initial negative anti-HCV test result. Blood BLOOD SPECIMEN / Unknown Venipuncture / Unknown 03/16/2024 12:54 PM CDT 03/16/2024 12:57 PM CDT Kimberly Sánchez MD SEND OUTS Final R esult Performing Organization Address [facility] Co de Phone Number [facility] [address] [place] [address], * ANTI HIV 1/2 (03/16/2024 12:54 PM CDT) HIV-1/HIV-2 SCREEN Non-Reacti ve Non-Reacti ve 03/16/2024 11:00 PM CDT [facility] Comment:HIV-1 p24 and HIV-1/ HIV-2 Ab Not Detected. Blood BLOOD SPECIMEN / Unknown Venipuncture / Unknown 03/16/2024 12:54 PM CDT 03/16/2024 12:57 PM CDT Kimberly Sánchez MD SEND OUTS Final R esult Performing Organization Address [facility] Co de Phone Number [facility] [address] [place] [address], * HPV HIGH RISK (10/21/2022 4:30 PM CDT) TYPE 16 Negative Negative 10/26/2022 1:47 PM CDT [facility] TYPE 18 Negative Negative 10/26/2022 1:47 PM CDT [facility] OTHER HIGH RISK TYPES Negative Negative 10/26/2022 1:47 PM CDT [facility] Other (Cervical) Non-Blood / Unknown 10/21/2022 4:30 PM CDT 10/23/2022 11:32 AM CDT Narrative [facility] - 10/26/2022 1:47 PM CDT HPV types 16, 18, 31, 33, 35, 39, 45, 51, 52, 56, 58, 59, 66 and 68 DNA were undetectable or below the pre-set threshold. Methodology: Gregg Braden 4800 HPV Test Kimberly Sánchez MD MICROBIOLOGY Final R esult [facility] [address] [place] [address], [place] from Last 3 Months or Most Recently Relevant to Health Maintenance Insurance [facility] Care Teams Director Corporate Compliance Relationship Specialty Start Date End Date Kimberly Sánchez MD [address] [place] [address] PCP - General Family Practice 11/18/11
--- OUTSIDE RECORDS SUMMARY | 2024-10-17 18:08 | XMS_ITS | Clinical Summary ---
Author Organization [facility] Address [address] [place] [address] Care Team Providers Care Shanker Out Name Role Phone Kimberly Sánchez MD Primary Care Provider Allergies Active Allergy Reactions Criticality Noted Date Comments Prednisone GI Disturbance Low 10/13/2013 Medications fluticasone (FLONASE) 50 MCG/ACT nasal spray [place] 1 spray into both nostrils daily Active cetirizine (ZYRTEC) 10 MG tablet Take 10 mg by mouth daily Active Vit-Fe Fumarate-FA ( MULTIVITAMIN W/IRON) 27-0.8 MG tablet Take 1 tablet by mouth daily Active escitalopram (LEXAPRO) 10 MG tablet Take 10 mg by mouth daily Active ferrous gluconate (FERGON) 324 (38 Fe) MG tabletIndications :Anemia due to blood loss, acute Take 1 tablet (324 mg) by mouth daily (with breakfast) 30 tablet 1 1 Active labetalol (NORMODYNE) 300 MG tabletIndications :Pre-eclampsia in period Take 1 tablet (300 mg) by mouth every 8 hours 90 tablet 1 Active NIFEdipine ER OSMOTIC (ADALAT CC) 30 MG 24 hr tabletIndications :Pre-eclampsia in period Take 1 tablet (30 mg) by mouth At Bedtime 30 tablet 1 Active Active Problems Problem Noted Date Diagnosed Date Pre-eclampsia in period 07/12/2021 Social History Tobacco Use Types Packs/Day Years Used Date Smoking Tobacco: Never Assessed Adolescent Education Answer Date Record ed Getting School Help Needed Not on file 04/24 Comments Unknown Sex and Gender Information Value Date Recorded Sex Assigned at Not on file Legal Sex Female 5:30 PM CDT Gender Identity Not on file Sexual Orientation Not on file Last Filed Vital Signs Vital Sign Reading Time Taken Comments Blood Pressure 123/83 07/15/2021 12:16 PM [employer]NEY[employer] Pulse 93 07/15/2021 12:16 PM [employer] Temperature 37.2 C (98.9 F) 07/15/2021 9:38 AM HVAC [employer]OURNEYMAN Respiratory Rate 16 07/15/2021 12:1 6 PM [employer]MAN Oxygen Saturation 98% 07/15/2021 9:38 AM HVAC JOURNEYMAN Inhaled Oxygen Concentration - - Weight 60.7 kg (133 lb 12.8 oz) 021 12:38 PM [employer]NEY[employer] Height - - Body Mass Index - - Plan of Treatment Not on file [place] [address] Advance Directives For more information, please contact: [phone] * Full Code (Latest Code Status on File) Date Activated Date Inactivated Comments 07/14/2021 9:51 PM 07/15/2021 2:56 PM All basic and advanced life-sustaining interventions are performed as appropriate Question Answer Comments Code status determined by: Discussion with jacob nt/ legal decision maker Care Teams Shanker Out Relationship Specialty Start Date End Date Kimberly Sánchez MD PCP - General Family Practice 05/04/20
--- NOTE | 2024-10-17 18:44 | ED_ITS ---
HPI - General Adult General Date Seen: 10/17/24 Chief complaint: Post OB/Post- Complication Stated complaint: post preeclampsia Time Seen by Provider: 10/17/24 18:24 Source: patient Mode of arrival: ambulatory Limitations: no limitations History of Present Illness HPI narrative: Patient is a 29-year-old female who is 6 weeks presenting for hypertension. She was recently hospitalized and then discharged 2 days ago for preeclampsia. Was discharged home on a 300 mg of labetalol 3 times a day and 30 mg of nifedipine daily. She was told to return for re-evaluation of her blood pressures are greater than 150 systolic. She has checked her blood pressure at home and the top number was 160. States she came to the emergency department. Is not having any other symptoms other than some mild lightheadedness. Does states she has some very mild neck pain 2. No other concerns noted. Has previously had preeclampsia with her 1st but this is the 1st time she has been hospitalized for it. Denies chest pain, shortness of breath, weakness, numbness, headache, vision changes, abdominal pain. Related Data Home Medications ?Medication ?Instructions ?Recorded ?Confirmed docosahexaenoic acid 200 mg 200 mg PO DAILY 09/05/24 10/10/24 capsule ( DHA) fluticasone propionate 50 1 spray intranasal QDAY 09/05/24 10/10/24 mcg/actuation nasal spray,suspension (Flonase Allergy Relief) ferrous sulfate 325 mg (65 mg 325 mg PO QDAY 10/10/24 10/10/24 iron) tablet (iron) Previous Rx's ?Medication ?Instructions ?Recorded nifedipine 30 mg tablet,extended 30 mg PO HS #30 tabs 10/14/24 release 24 hr labetalol 100 mg tablet 300 mg (3 x 100 mg) PO TID #270 10/15/24 tabs Allergies Allergy/AdvReac Type Severity Reaction Status Date / Time No Known Drug Allergies Allergy Verified 10/12/24 18:38 Review of Systems Status of ROS: Reports: 10 or more systems reviewed and unremarkable except as noted in History and below [facility] Medical History ?Z34.90 - Encounter for supervision of normal , unspecified, unspecified trimester (ICD-10) History of pre-eclampsia in prior , currently in third trimester ?O09.293 - Supervision of with other poor reproductive or obstetric history, third trimester (ICD-10) History of maternal vaginal hematoma, currently in third trimester (07/08/21) ?O09.293 - Supervision of with other poor reproductive or obstetric history, third trimester (ICD-10) History of hemorrhage, currently in third trimester ?O09.293 - Supervision of with other poor reproductive or obstetric history, third trimester (ICD-10) Surgical History History of wisdom tooth extraction ?K08.409 - Partial loss of teeth, unspecified cause, unspecified class (ICD- 10) Family History Mother Breast cancer Thyroid disease High blood pressure Maternal Grandmother Colon cancer Paternal Grandmother Diabetes Father High blood pressure Social History Narrative: Cis-gender, heterosexual woman. Relationship status: . 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 Tobacco: Lifetime nonsmoker E-cigarettes: No Alcohol: No Illicit/recreational drugs: No Safety concerns at home or work: No Dietary restriction(s): None Exercise: Yes, walks and does yoga 3 times per week What is your current living situation?: I presently have a place to live Problems where you live: no known problems In the past 12 months, utilities in danger of being shut off: no In past 12 months, lack of transportation kept you from medical appts, meetings, work, or getting things needed for daily living: no In the past 12 mos, have been you worried that your food would run out before you had money to buy more?: never true In the past 12 mos, the food you bought just didn't last and you didn't have money to buy more?: never true Smoking Status: Never smoker How often do you have a drink containing alcohol: never AUDIT-C Alcohol total score: 0 Non-prescribed substance use: denies use How often does anyone, including family, friends and others, physically hurt you : never How often does anyone, including family, friends and others, insult or talk down to you: never How often does anyone, including family, friends and others, threaten you with harm: never How often does anyone, including family, friends and others, scream or curse at you: never Exam Narrative: Exam Narrative: Const: Well-nourished, Well-developed, in no distress Eyes: PERRL, no conjunctival injection, and symmetrical lids HENT: Atraumatic external nose and ears. Moist mucous membranes. Neck: Symmetric, trachea midline, No thyromegaly. CVS: RRR, No murmurs or gallops. Peripheral pulses 2+ and equal in all extremities RESP: Unlabored respiratory effort. Clear to auscultation bilaterally. GI: Nontender/Nondistended, No rebound or guarding. MSK:Extremities w/o deformity, Normal Active ROM Skin: Warm, Dry. No rashes or lesions. Neuro: Normal Muscle tone, No focal neurological deficits. Psych: Awake, Alert, & Oriented x3. Appropriate mood and affect. Const: Vital Signs, click to edit/add: Vital Signs - 24 hr 10/17/24 18:25 10/17/24 18:38 10/17/24 18:44 Temperature Pulse Rate 66 Pulse Rate [Pulse Oximeter] 70 Respiratory Rate 16 Blood Pressure Blood Pressure [Le ft Upper Arm] 191/106 H 188/111 H Pulse Oximetry 99 99 Oxygen Delivery Me thod Room Air 10/17/24 18:45 10/17/24 18:48 10/17/24 18:49 Temperature Pulse Rate 67 64 65 Pulse Rate [Pulse Oximeter] Respiratory Rate Blood Pressure 189/103 H Blood Pressure [Le ft Upper Arm] Pulse Oximetry 99 99 99 Oxygen Delivery Me thod 10/17/24 18:57 Temperature 98.8 F Pulse Rate Pulse Rate [Pulse Oximeter] Respiratory Rate Blood Pressure 152/95 H Blood Pressure [Le ft Upper Arm] Pulse Oximetry Oxygen Delivery Me thod Course Vital Signs Vital signs: Initial Vital Signs Pulse Rate 70 10/17/24 18:25 Respiratory Rate 16 10/17/24 18:25 Blood Pressure 191/106 H 10/17/24 18:25 Blood Pressure Mean 134 H 10/17/24 18:25 Blood Pressure Position Sitting 10/17/24 18:25 Pulse Oximetry 99 10/17/24 18:25 Oxygen Delivery Method Room Air 10/17/24 18:25 Vital Signs Pulse Rate 70 10/17/24 18:25 Respiratory Rate 16 10/17/24 18:25 Blood Pressure 191/106 H 10/17/24 18:25 Pulse Oximetry 99 10/17/24 18:25 Oxygen Delivery Method Room Air 10/17/24 18:25 Temperature 98.8 F 10/17/24 18:57 Pulse Rate 89 10/17/24 19:19 Respiratory Rate 16 10/17/24 19:19 Blood Pressure 141/84 H 10/17/24 19:19 Pulse Oximetry 100 10/17/24 19:19 Oxygen Delivery Method Room Air 10/17/24 18:25 Medications Administered Medications: Generic Name Dose Route Start Last Admin Trade Name Freq PRN Reason Stop Dose Admin Hydralazine HCl 5 - 10 mg 10/17/24 18:40 10/17/24 18:47 Hydralazine Hcl 20 Mg/Ml Inj IVP 10 mg Q20M PRN Administration Hypertension Magnesium Sulfate 4 gm in 100 mls @ 200 mls/hr 10/17/24 19:12 10/17/24 19:23 Magnesium Iv IVPB 10/17/24 19:41 200 mls/hr ONCE ONE Administration Lactated Ringer's 1,000 mls @ 75 mls/hr 10/17/24 19:25 10/17/24 19:27 Lactated Ringers 1000 Ml IV 75 mls/hr .[id number] EMANUEL Administration Medical Decision Making MDM Narrative Medical decision making narrative: Patient is a 29-year-old female presenting for preeclampsia. Her initial blood pressure is 190/106. Due to this I called Dr. Vazquez of OB/Gyne right away. She states recheck blood pressure in 15 minutes and call her back if it is still elevated. We recheck her blood pressure and it was 188/111. I spoke to OB again and plan is to start her on the hydralazine pathway as he is already on labetalol. Due to this a 2nd IV had to be placed so she can get hydralazine and magnesium. Will order CBC, CMP, urinalysis. Causing was ordered. She will be admitted to Ob/Gyne. Lab Data Labs: Lab Results 10/17/24 10/17/24 10/17/24 Range/Units 18:45 18:45 18:45 Sodium Cancelled 137 Potassium Cancelled 3.7 Chloride Cancelled Carbon Dioxide Anion Gap BUN Creatinine Estimated Creat Clear Estimated GFR Glucose Calcium Total Bilirubin (0.1-1.5) mg/dL AST (12-35) U/L ALT (4-35) U/L Alkaline Phosphatase (40-150) U/L Total Protein (6.0-8.3) g/dL Albumin (3.3-5.0) g/dL 10/17/24 10/17/24 10/17/24 Range/Units 18:45 18:45 18:45 Sodium Potassium Chloride 104 Carbon Dioxide Cancelled 24 Anion Gap Cancelled 9 BUN Cancelled Creatinine Estimated Creat Clear Estimated GFR Glucose Calcium Total Bilirubin (0.1-1.5) mg/dL AST (12-35) U/L ALT (4-35) U/L Alkaline Phosphatase (40-150) U/L Total Protein (6.0-8.3) g/dL Albumin (3.3-5.0) g/dL 10/17/24 10/17/24 10/17/24 Range/Units 18:45 18:45 18:45 Sodium Potassium Chloride Carbon Dioxide Anion Gap BUN 22 Creatinine Cancelled 0.6 Estimated Creat Clear Cancelled Estimated GFR Cancelled 123 Glucose Cancelled Calcium Total Bilirubin (0.1-1.5) mg/dL AST (12-35) U/L ALT (4-35) U/L Alkaline Phosphatase (40-150) U/L Total Protein (6.0-8.3) g/dL Albumin (3.3-5.0) g/dL 10/17/24 10/17/24 Range/Units 18:45 18:45 Sodium Potassium Chloride Carbon Dioxide Anion Gap BUN Creatinine Estimated Creat Clear Estimated GFR Glucose 89 Calcium Cancelled 9.7 Total Bilirubin 0.3 (0.1-1.5) mg/dL AST 26 (12-35) U/L ALT 38 H (4-35) U/L Alkaline Phosphatase 107 (40-150) U/L Total Protein 7.6 (6.0-8.3) g/dL Albumin 4.5 (3.3-5.0) g/dL Critical Care Time Critical Care Time Critical Care Time: Yes Attestation: The patient required my highest level preparedness to intervene emergently and I personally spent this critical care time directly and personally managing the patient. This critical care time included: Obtaining a history; Examining the patient; Pulse oximetry; Ordering and reviewing of studies; Arranging urgent treatment with development of a management plan; Evaluation of patients response to treatment; Frequent reassessment discussions with other providers. This critical care time was performed to assess and manage the high probability of imminent life-threatening deterioration that could result in multiorgan failure. It was exclusive of separate billable procedures and treating other patients and teaching time. Total Critical Care Time in Minutes: 31 Discharge Plan Discharge Clinical Impression: Preeclampsia Qualifiers: Trimester: unspecified trimester Qualified Code(s): O14.90 - Unspecified pre- eclampsia, unspecified trimester Patient Disposition: Admit to OB
[2024-10-17] MEDS: HYDRALAZINE HCL 20 MG/ML inj IVP (18:47)
--- OUTSIDE RECORDS SUMMARY | 2024-10-17 19:09 | XMS_ITS | Clinical Summary ---
Author Organization [facility] [facility] Address [facility] [place] [address] Care Team Providers Care Retail Event Assistant Name Role Phone Kimberly Sánchez MD Primary [...] 03/16/24 to present) Problem Noted Diagnosed Resolved [facility] Supervision of high-risk 03/16/2024 by Yessi Angel RN No Overview Addendum 03/28/2024 10:32 AM by Adeline Mustafa RN Amber L Soderlund : 1995 [facility] ULTRASOUND/TESTING PATIENT MPP CONSULT ON 03/31/24 REFERRING PROVIDER/CLINIC LOCATION/FAX #: Kimberly Sánchez MD Primary provider approves scheduling of recommended ultrasounds/testing: Yes Support person name: Gypsum Block Setter: No ULTRASOUND TYPE: n/a REASON FOR VISIT: [...] POC Maura Wing RN ....09/26/2024 4:16 PM [facility] Supervision of high-risk 4 Overview (03/28/2024): Lucille Pringle : 1995 [facility] ULTRASOUND/TESTING PATIENT MPP CONSULT ON 03/31/24 REFERRING PROVIDER/CLINIC LOCATION/FAX #: Kimberly Sánchez MD Primary provider approves scheduling of recommended ultrasounds/testing: Yes Support person name: Gypsum Block Setter: No ULTRASOUND TYPE: n/a REASON FOR VISIT: [...] Raynaud phenomenon BMI=27 LAST GROWTH: 07/04/21: 06/30/2021 [facility] [place] 19%, EFW 19% being faxed over 03/11/2021 20w3d [place] 47 % ECHO: REFERRING PHYSICIAN/PHONE/LAST UPDATE: Dr. Malu Sánchez [place] [phone] Primary MD approves scheduling of recommended ultrasounds/testing:yes [...] Description 10/16/2024 9:30 AM CDT Office Visit [facility] [address] [place] [address] Kimberly Sánchez MD Blood Pressure (Still having the headache but nothing else.) 10/16/2024 Travel 10/15/2024 Orders Only [facility] Scanner 1 scan: (1-Ord) [facility] LAB[facility], 10/15/2024 10/14/2024 Orders Only [facility] Scanner 1 scan: (1-Ord) [facility], MUTLIP[facility] LAB RESULTS, 10/14/2024 10/13/2024 Orders Only [facility] Scanner 1 scan: (1-Ord) [facility], MULIT[facility] LABS, 10/13/2024 10/12/2024 Orders Only [facility] Scanner 1 scan: (1-Ord) [place], CT ANGIO CHEST PE PROTOCOL, 10/12/2024 10/12/2024 Orders Only [facility] Scanner 1 scan: (1-Ord) [facility], MULTIPLE LABS, 10/12/2024 10/12/2024 Travel 10/11/2024 Lab Requisition [facility] [phone] Unknown, Doctor 10/10/2024 Orders Only [facility] Scanner 1 scan: (1-Ord) MARIA E, RPR, 10/10/2024 10/10/2024 Orders Only [facility] Scanner 1 scan: (1-Ord) MARIA E, BLOOD TYPE ANTIBODY SCREEN, 10/10/2024 10/10/2024 Orders Only [facility] Scanner 1 scan: (1-Ord) MARIA E H+C, RESULTS, 10/10/2024 10/06/2024 Nurse Triage [facility] [address] [facility] [place] [address] Kimberly Sánchez MD Fall 10/06/2024 Travel 10/04/2024 1:35 PM WINDOW SHADE INSTALLER OB Encounter [facility] [address] [facility] [place] [address] Kimberly Sánchez MD Care (37wk 1d) 10/04/2024 Travel 09/27/2024 3:40 PM WINDOW SHADE INSTALLER OB Encounter [address] [place] [address] Kimberly Sánchez MD Care (36w 1d) 09/27/2024 Travel 09/25/2024 9:45 AM WINDOW SHADE INSTALLER Ancillary Procedure [address] [facility] [place] [address] 09/24/2024 Travel 09/13/2024 3:40 PM WINDOW SHADE INSTALLER OB Encounter [address] [place] [address] Kimberly Sánchez MD Care (34w 1d/Cyst drained and would like the catheter removed if possible./URQ pain is increasing/Constipa tion due to Iron supplement/BP at home has been good.) 09/13/2024 Travel 09/08/2024 Travel 09/07/2024 4:00 PM WINDOW SHADE INSTALLER Ancillary Procedure [facility] [address] [facility] [address] 09/07/2024 Travel 09/02/2024 Travel 08/31/2024 3:40 PM WINDOW SHADE INSTALLER OB Encounter [address] [facility] [address] Kimberly Sánchez MD Care (32w 2d/Check cyst, seems to be getting myrna); Immunization/Inject ion 08/30/2024 Travel 08/17/2024 3:40 PM WINDOW SHADE INSTALLER OB Encounter [facility] [address] [facility] [address] Kimberly Sánchez MD Care (30w 2d) 08/17/2024 Telephone [facility] [address] [facility] [address] Kimberly Sánchez MD Lab (Phone call in regards to lab ) 08/17/2024 Travel 08/12/2024 Travel 07/31/2024 9:55 AM WINDOW SHADE INSTALLER OB Encounter [facility] [address] [facility] [address] Kimberly Sánchez MD Care (27w 6d/Cyst in [...] Date Recorded PHQ-2 TOTAL SCORE 0 11/29/2023 [facility] [place] of Occupat ional Health - Occupational Stress [...] Sex Assigned at Female 06/14/2020 9:00 AM WINDOW SHADE INSTALLER Legal Sex Female 5:51 AM WINDOW SHADE INSTALLER Gender Identity Female 06/14/2020 9:00 AM WINDOW SHADE INSTALLER Sexual Orientation Straight 06/14/2020 9: 00 AM WINDOW SHADE INSTALLER 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 Preeclampsia labs today. PLAN: Labor signs and symptoms reviewed with patient including painful regular contractions or leaking fluid. RTC 1 weeks. Kimberly Sánchez MD .................... 10/04/2024 2:03 PM OW SHADE INSTALLER Progress Notes - OB Encounte r - [...] Kimberly Sánchez MD .................... 09/27/2024 3:47 PM OW SHADE INSTALLER Progress Notes - OB Encounte r - [...] Kimberly Sánchez MD .................... 09/13/2024 3:43 PM OW SHADE INSTALLER Progress Notes - OB Encounte r - [...] including pain, cramping, bleeding or leaking fluid. Document Preparer Microfilming consult to discuss whether or not to treat the cyst during . RSV vaccine given today. RTC 2 weeks. Growth and BPP at that visit. Kimberly Sánchez MD .................... 08/31/2024 3:49 PM OW SHADE INSTALLER Progress Notes - OB Encounte r - [...] Kimberly Sánchez MD .................... 08/17/2024 3:51 PM OW SHADE INSTALLER Progress Notes - OB Encounte r - [...] recurrent, may need word catheter placement by soda fountain manager RTC 2 weeks. Kimberly Sánchez MD .................... 07/31/2024 10:09 AM OW SHADE INSTALLER Progress Notes - OB Encounte r - [...] Kimberly Sánchez MD .................... 07/03/2024 3:20 PM OW SHADE INSTALLER Progress Notes - OB Encounte r - 06/05/2024 - GA:19w6d 06/05/2024 - d - Kimberly Sánchez MD SUBJECTIVE: Lucille Pringle is a 29 y.o. female at 19+6 weeks. Home blood pressure readings this week 110/60s. Has been having left sided sciatica. Seems to wax and wane in severity, but given she is only [facility] through , is hoping to do PT. [...] Kimberly Sánchez MD .................... 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 04/17/2024 7:40 AM Progress [...] corresponding sections of the history [facility] and the [facility] Navigator for details. Comments under Consult in [...] supplied to patient? Patient will view via [facility]. Is referring provider within [facility]? yes Consult [...] but is working with a mental health volleyball coach and feels good. INFECTION HISTORY Current [...] 36.8 C (98.3 F) 07/15/2024 9:39 AM WINDOW SHADE INSTALLER Respiratory Rate 18 07/15/2024 9:39 AM WINDOW SHADE INSTALLER Oxygen Saturation 99% 10/16/2024 9:50 AM CDT [...] CDT PROTEIN/CREAT RATIO,URINE Routine 10/04/2024 2:24 PM WINDOW SHADE INSTALLER Hx of preeclampsia, prior , currently , third trimester (HC) CBC WITH AUTO DIFFERENTIAL Routine 10/04/2024 2:24 PM WINDOW SHADE INSTALLER Hx of preeclampsia, prior , currently , third trimester (HC) ALT (SGPT) Routine 10/04/2024 2:24 PM WINDOW SHADE INSTALLER Hx of preeclampsia, prior , currently , third trimester (HC) AST (SGOT) Routine 10/04/2024 2:24 PM WINDOW SHADE INSTALLER Hx of preeclampsia, prior , currently , third trimester (HC) CREATININE Routine 10/04/2024 2:24 PM WINDOW SHADE INSTALLER Hx of preeclampsia, prior , currently , third trimester (HC) VAGINAL/RECTAL OB STREP PCR Routine 09/27/2024 4:56 PM WINDOW SHADE INSTALLER Encounter for supervision of other normal , third trimester US ABDOMEN LIMITED RUQ Routine 9:56 AM WINDOW SHADE INSTALLER Abdominal pain, RUQ (right upper quadrant) CBC WITH AUTO DIFFERENTIAL Routine 09/13/2024 4:17 PM WINDOW SHADE INSTALLER COMP METABOLIC PANEL Routine 09/13/2024 4:17 PM WINDOW SHADE INSTALLER Weakness Sinus tachycardia PROTEIN/CREAT RATIO,URINE Routine 09/13/2024 4:16 PM WINDOW SHADE INSTALLER Hx of preeclampsia, prior , currently , third trimester (HC) Abdominal pain, RUQ (right upper quadrant) US OB BIOPHYSICAL PROFILE AND FOLLOW UP SINGLE Routine 09/08/2024 10:14 AM WINDOW SHADE INSTALLER Hx of preeclampsia, prior , currently , first trimester (HC) Encounter for supervision of other normal , second trimester DIFFERENTIAL MANUAL ([facility] REFLEX ONLY) Routine 08/18/2024 11:52 AM WINDOW SHADE INSTALLER HEPATIC FUNCTION PANEL Routine 11:52 AM WINDOW SHADE INSTALLER Hx of preeclampsia, prior , currently , first trimester (HC) Abdominal pain, RUQ (right upper quadrant) CBC WITH AUTO DIFFERENTIAL Routine 08/18/2024 11:52 AM WINDOW SHADE INSTALLER Hx of preeclampsia, prior , currently , first trimester (HC) Abdominal pain, RUQ (right upper quadrant) CREATININE Routine 08/18/2024 11:52 AM WINDOW SHADE INSTALLER Hx of preeclampsia, prior , currently , first trimester (HC) Abdominal pain, RUQ (right upper quadrant) PROTEIN/CREAT RATIO,URINE Routine 08/17/2024 4:15 PM WINDOW SHADE INSTALLER Hx of preeclampsia, prior , currently , first trimester (HC) TREPONEMA PALLIDUM Routine 07/31/2024 10 :37 AM WINDOW SHADE INSTALLER Encounter for supervision of other normal , second trimester GLUCOSE TOLERANCE, GESTATIONAL SCREEN 1H Routine 07/31/2024 10:37 AM WINDOW SHADE INSTALLER Encounter for supervision of other normal , [...] 11.0 thou/cu mm 10/16/2024 12:14 PM CDT [facility] RED BLOOD COUNT 4.05 4.00 - 5.20 mil/cu mm 10/16/2024 12:14 PM CDT [facility] HEMOGLOBIN 11.4(L) 12.0 - 16.0 g/dL 10/16/2024 12:14 PM [facility] HEMATOCRIT 36.4 33.0 - 51.0 % 10/16/2024 12:14 PM [facility] MCV 90 80 - 100 fL 10/16/2024 12:14 PM [facility] MCH 28.1 26.0 - 34.0 pg 10/16/2024 12:14 PM [facility] MCHC 31.3(L) 32.0 - 36.0 g/dL 10/16/2024 12:14 PM [facility] RDW 13.6 11.5 - 15.5 % 10/16/2024 12:14 PM [facility] PLATELET COUNT 336 140 - 440 thou/cu mm 10/16/2024 12:14 PM [facility] MPV 9.4 6.5 - 11.0 fL 10/16/2024 12:14 PM [facility] % NEUT 68.4 % 10/16/2024 12:14 PM [facility] % LYMPH 19.7 % 10/16/2024 12:14 PM [facility] % MONO 8.5 % 10/16/2024 12:14 PM [facility] % EOS 2.8 % 10/16/2024 12:14 PM [facility] % BASO 0.6 % 10/16/2024 12:14 PM [facility] ABSOLUTE NEUTROPHILS 3.7 1.7 - 7.0 thou/cu mm 10/16/2024 12:14 PM [facility] ABSOLUTE LYMPHOCYTES 1.1 0.9 - 2.9 thou/cu mm 10/16/2024 12:14 PM [facility] ABSOLUTE MONOCYTES 0.5 <0.9 thou/cu mm 10/16/2024 12:14 PM [facility] ABSOLUTE EOSINOPHILS 0.2 <0.5 thou/cu mm 10/16/2024 12:14 PM [facility] ABSOLUTE BASOPHILS 0.0 <0.3 thou/cu mm 10/16/2024 12:14 PM CDT [facility] Blood BLOOD SPECIMEN / Unknown [facility] / Unknown 10/16/2024 9:34 AM CDT 10/16/2024 9:34 AM CDT Narrative [facility] - 10/16/2024 12:14 PM CDT Send to [facility] Kimberly Sánchez MD HEMATOLOGY Final [facility] [address] [place] [address] * CREATININE (10/16/2024 9:34 AM CDT) Only the most recent of3 resultswithin the time period is included. eGFR >90 >90 mL/min/1.7 3m2 10/16/2024 12:19 PM CDT [facility] Comment:As of 2021, eG FR is calculated by the CKD-EPI creatinine equation without race adjustment. eGFR can be influenced by muscle mass, exercise, and diet. The reported eGFR is an estimation only and is only applicable if the renal function is stable. CREATININE 0.56 0.50 - 0.90 mg/dL 10/16/2024 12:19 PM CDT [facility] Blood BLOOD SPECIMEN / Unknown [facility] / Unknown 10/16/2024 9:34 AM CDT 10/16/2024 9:34 AM CDT Kimberly Sánchez MD CHEMISTRY Final [facility] [address] [place] [address] * (ABNORMAL) ALT (SGPT) (10/16/2024 9:34 AM CDT) Only the most recent of2 resultswithin the time period is included. ALT (SGPT) 39(H) 10 - 35 IU/L 10/16/2024 12:19 PM CDT [facility] Blood BLOOD SPECIMEN / Unknown [facility] / Unknown 10/16/2024 9:34 AM CDT 10/16/2024 9:34 AM CDT us Kimberly Sánchez MD CHEMISTRY Final R esult Performing Organization Address City/[facility]/ZIP Co de Phone Number [facility] [address] [place] [address] * AST (SGOT) (10/16/2024 9:34 AM CDT) Only the most recent of2 resultswithin the time period is included. AST (SGOT) 27 10 - 35 IU/L 10/16/2024 12:19 PM CDT [facility] Blood BLOOD SPECIMEN / Unknown [facility] / Unknown 10/16/2024 9:34 AM CDT 10/16/2024 9:34 AM CDT us Kimberly Sánchez MD CHEMISTRY Final R [facility] Performing Organization Address City/[facility]/ZIP Co de Phone Number [facility] [address] [place] [address] * SCAN-LABORATORY REPORT (10/15/2024 12:00 AM CDT) Only the most recent of7 resultswithin the time period is included. us Scanner OTHER Final Result * SCAN-CT INTERPRETATION (10/12/2024 12:00 AM CDT) Anatomical Region Laterality Modality Other us Scanner OTHER Final Result * PATH TISSUE EXAM PLACENTA (10/11/2024 2:45 AM CDT) Case Report Pathology Report Case: [id number] Authorizing Provider: Unknown, Doctor Collected: 10/11/2024 0245 Ordering Location: [facility] Received: 10/11/2024 1516 Pathologist: Natalie Rea MD Specimen: Placenta 10/13/2024 5:22 PM CDT [facility] ENTRAL LABORATORY Final Diagnosis A) PLACENTA, [...] diagnostic abnormalities identified 10/13/2024 5:22 PM CDT [facility]-C ENTRAL LABORATORY at 1722 CDT Comment [...] are not seen. 10/13/2024 5:22 PM CDT [facility]-C ENTRAL LABORATORY Clinical Information Vaginal delivery at 38+1 weeks gestational age. Maternal hypertension preeclampsia. 10/13/2024 5:22 PM CDT [facility] EN[facility]AL LABORAT[facility] Gross Description A) Received [...] distinct lesions or abnormalities are grossly identified. Resident Care Associate sections are submitted as follows: 1. Membranes and insertion 2. Umbilical cord 3. Full-thickness central placental disc at umbilical cord insertion site 4-5. Full-thickness central. Disc (parenchymal lesion included in cassette 5) ADW 10/12/2024 10/13/2024 5:22 PM CDT [facility]- ENTRAL LABORATORY Microscopic Description The final diagnosis is based on microscopic examination of appropriate sections of all specimens. 10/13/2024 5:22 PM CDT [facility] Additional Information Interpreted at [facility] - [address] [facility] [address], [place] [address] 10/13/2024 5:22 PM CDT [facility] Tissue SPECIMEN FROM PLACENTA / Unknown 10/11/2024 2:45 AM CDT 10/11/2024 3:16 PM CDT Doctor Unknown PATHOLOGY/CYTOLOGY Final Result Performing Organization Address [facility] Co de Phone Number [facility] [address] [address], [place] * LAB TRACKING EVENT (10/10/2024 12:37 PM CDT) Other (Other) Client Collect / Unknown 10/10/2024 12:37 PM CDT 10/11/2024 3:00 PM CDT us Doctor Unknown LAB BILL ONLY Final Result Performing Organization Address City/[facility] Co de Phone Number [facility] [address] [address], [place] * PROTEIN/CREAT RATIO,URINE (10/04/2024 2:24 PM WINDOW SHADE INSTALLER) Only the most recent of3 resultswithin the time period is included. Pathologist [facility] PROTEIN QUANT,RAND URINE 7 1 - 14 mg/dL 10/04/2024 11:16 PM WINDOW SHADE INSTALLER [facility] CREAT,RANDOM URINE 74.0 28.0 - 217.0 mg/dL 10/04/2024 11:16 PM WINDOW SHADE INSTALLER [facility] PROT/CREAT RATIO,UR 0.1 <0.2 10/04/2024 11:16 PM WINDOW SHADE INSTALLER [facility] Urine URINE SPECIMEN / Unknown Non-Blood / Unknown 10/04/2024 2:24 PM WINDOW SHADE INSTALLER 10/04/2024 2:24 PM WINDOW SHADE INSTALLER us Kimberly Sánchez MD URINE Final R esult [facility] [address] [address], * (ABNORMAL) CBC AND DIFFERENTIAL (10/04/2024 2:24 PM WINDOW SHADE INSTALLER) Only the most recent of3 resultswithin the time period is included. [facility] WHITE BLOOD CELL COUNT 8.4 3.8 - 10.8 Thousand/u L [facility] RED BLOOD CELL COUNT 3.84 3.80 - 5.10 Million/uL [facility] HEMOGLOBIN 11.1(L) 11.7 - 15.5 g/dL [facility] HEMATOCRIT 33.0(L) 35.0 - 45.0 [...] BLOOD SPECIMEN / Unknown 10/04/2024 2:24 PM WINDOW SHADE INSTALLER 10/04/2024 2:24 PM WINDOW SHADE INSTALLER Kimberly Sánchez MD HEMATOLOGY Final R esult [facility] [address] [place] [address], [facility] [address] [place] [address] * VAGINAL/RECTAL OB STREP PCR (09/27/2024 4:56 PM WINDOW SHADE INSTALLER) Vaginal/Rectal OB Strep B PCR Negative 09/29/2024 10:[address] IN[address] [facility] Other (Vaginal/Rectal) Non-Blood / Unknown 09/27/2024 4:56 PM WINDOW SHADE INSTALLER 09/27/2024 4:56 PM WINDOW SHADE INSTALLER Kimberly Sánchez MD MICROBIOLOGY Final R esult [facility] [address] [address], [place] * US ABDOMEN LIMITED RUQ (09/25/2024 9:56 AM WINDOW SHADE INSTALLER) Anatomical Region Laterality Modality Abdomen, LIVER Ultrasound 09/25/2024 10:0 8 AM WINDOW SHADE INSTALLER Impressions 09/25/2024 10:08 AM WINDOW SHADE INSTALLER Unremarkable right upper quadrant ultrasound. Dictated by Robert Palacios MD @ 09/25/2024 10:08:03 AM (Electronically Signed) Narrative 09/25/2024 10:08 AM WINDOW SHADE INSTALLER For Patients: As a result of the [...] MD @ 09/25/2024 10:08:03 AM (Electronically Signed) us Kimberly Sánchez MD Final R esult * COMP METABOLIC PANEL (09/13/2024 4:17 PM WINDOW SHADE INSTALLER) GLUCOSE 80 65 - 99 mg/dL [facility] [...] BLOOD SPECIMEN / Unknown 09/13/2024 4:17 PM WINDOW SHADE INSTALLER 09/13/2024 4:18 PM WINDOW SHADE INSTALLER Kimberly Sánchez MD CHEMISTRY Final R esult [facility] [address] [place] [address], [facility] [address] [place] [address] * US OB BIOPHYSICAL PROFILE AND FOLLOW UP SINGLE (09/08/2024 10:14 AM WINDOW SHADE INSTALLER) Anatomical Region Laterality Modality Ultrasound 09/08/2024 1:30 PM WINDOW SHADE INSTALLER Impressions 09/08/2024 1:30 PM WINDOW SHADE INSTALLER Normal biophysical profile score 8/8. Sonographic gestational age 32 weeks 6 days and a sonographic due date 10/27/2024. Good correlation with dates. Normal interval growth. Estimated weight 16th percentile. Abdominal circumference 28th percentile. Femur length 3rd percentile. Dictated by Vinicio Adams MD @ 09/08/2024 1:30:03 PM (Electronically Signed) Narrative 09/08/2024 1:30 PM WINDOW SHADE INSTALLER For Patients: As a result of the [...] For Patients: As a result of the Century Cures Act, medical imagingexams and procedure reports [...] MANUAL ([facility] REFLEX ONLY) (08/18/2024 11:52 AM WINDOW SHADE INSTALLER) ABSOLUTE NEUTROPHILS 6,453 1,500 - 7,800 cells/uL [...] a manual review. 08/18/2024 11:5 2 AM WINDOW SHADE INSTALLER 08/18/2024 11:53 AM WINDOW SHADE INSTALLER Kimberly Sánchez MD LABORATORY Final R esult Performing Organization Address [facility] de Phone Number [facility] [address] [place] [address], [facility] [facility] [address] [place] [address] * HEPATIC FUNCTION PANEL (08/18/2024 11:52 AM WINDOW SHADE INSTALLER) Pathologist [facility] PROTEIN, TOTAL 6.4 6.1 - 8.1 g/dL [...] BLOOD SPECIMEN / Unknown 08/18/2024 11:52 AM WINDOW SHADE INSTALLER 08/18/2024 11:53 AM WINDOW SHADE INSTALLER Kimberly Sánchez MD CHEMISTRY Final R esult Performing Organization Address City/[facility]/ZIP Co de Phone Number [facility] [address] [facility] [place] [address], [place] [phone] [facility] [address] [place] [address] * TREPONEMA PALLIDUM (07/31/2024 10:37 AM WINDOW SHADE INSTALLER) TREPONEMA PALLIDUM Non-Reacti ve Non-Reacti ve 07/31/2024 3:30 PM WINDOW SHADE INSTALLER [facility] Blood BLOOD SPECIMEN / Unknown [facility] / Unknown 07/31/2024 10:37 AM WINDOW SHADE INSTALLER 07/31/2024 10:37 AM WINDOW SHADE INSTALLER us Kimberly Sánchez MD SEND OUTS Final R esult [facility] [address] [place] [address], * GLUCOSE,GESTATIONAL (07/31/2024 10:37 AM WINDOW SHADE INSTALLER) Pathologist [facility] GLUCOSE, GESTATIONAL SCREEN (50G)-140 CUTOFF 72 <140 mg/dL [facility] Blood BLOOD SPECIMEN / Unknown 07/31/2024 10:37 AM WINDOW SHADE INSTALLER 07/31/2024 10:38 AM WINDOW SHADE INSTALLER Kimberly Sánchez MD CHEMISTRY Final R esult [facility] [address] [place] [address], [place] [phone] [facility] [address] [facility] [place] [address] * ANTI HCV (03/16/2024 12:54 PM CDT) HEPATITIS C ANTIBODY Non-Reacti ve Non-React julia 03/16/2024 11:[address] [facility] Comment:Please note, per www .CDC.gov: [...] OUTS Final R esult Performing Organization Address [facility] Co de Phone Number [facility] [address] [place] [address], [place] * ANTI HIV 1/2 (03/16/2024 12:54 PM CDT) Pathologist [facility] HIV-1/HIV-2 SCREEN Non-Reacti ve Non-Reacti ve 03/16/2024 11:[address] [facility] Comment:HIV-1 p24 and HIV-1/ HIV-2 Ab Not Detected. Blood BLOOD SPECIMEN / Unknown Venipuncture / Unknown 03/16/2024 12:54 PM CDT 03/16/2024 12:57 PM CDT Kimberly Sánchez MD SEND OUTS Final R esult Performing Organization Address [facility] Co de Phone Number [facility] [facility] [address] [place] [id number], [place] * HPV HIGH RISK (10/21/2022 4:30 PM CDT) TYPE 16 Negative Negative 10/26/2022 1:[address] [facility] TYPE 18 Negative Negative 10/26/2022 1:[address] [facility] OTHER HIGH RISK TYPES Negative Negative 10/26/2022 1:[address] [facility] Other (Cervical) Non-Blood / Unknown 10/21/2022 4:30 PM CDT 10/23/2022 11:32 AM CDT Narrative [facility] - 10/26/2022 1:47 PM CDT HPV types 16, 18, 31, 33, 35, 39, 45, 51, 52, 56, 58, 59, 66 and 68 DNA were undetectable or below the pre-set threshold. Methodology: Gregg Braden 4800 HPV Test us Kimberly Sánchez MD MICROBIOLOGY Final R esult [facility] [address] [place] [address], [place] from Last 3 Months or Most Recently Relevant to Health Maintenance Insurance [facility] Care Teams Retail Event Assistant Relationship Specialty Start Date End Date Kimberly Sánchez MD [address] [place] [id number] PCP - General Family Practice 11/18/11
--- OUTSIDE RECORDS SUMMARY | 2024-10-17 19:09 | XMS_ITS | Clinical Summary ---
Author Organization [facility] Address [address] [place] [id number] Care Team Providers Care Supervisor Tumbling And Rolling Name Role Phone Kimberly Sánchez MD Primary Care Provider Allergies Active Allergy Reactions Criticality Noted Date Comments Prednisone GI Disturbance Low 10/13/2013 Medications fluticasone (FLONASE) 50 MCG/ACT nasal spray [place] 1 spray into both nostrils daily Active [...] Comments Blood Pressure 123/83 07/15/2021 12:16 PM GLASS ETCHER HELPER Pulse 93 07/15/2021 12:16 PM GLASS ETCHER HELPER Temperature 37.2 C (98.9 F) 07/15/2021 9:38 AM GLASS ETCHER HELPER Respiratory Rate 16 07/15/2021 12:1 6 PM GLASS ETCHER HELPER Oxygen Saturation 98% 07/15/2021 9:38 AM GLASS ETCHER HELPER Inhaled Oxygen Concentration - - Weight 60.7 kg (133 lb 12.8 oz) 021 12:38 PM GLASS ETCHER HELPER Height - - Body Mass Index - - Plan of Treatment Not on file Insurance MEDICA CHOICE Advance Directives For more information, please contact: [phone] * Full Code (Latest Code Status on File) Date Activated Date Inactivated Comments 07/14/2021 9:51 PM 07/15/2021 2:56 PM All basic and advanced life-sustaining interventions are performed as appropriate Question Answer Comments Code status determined by: Discussion with jacob nt/ legal decision maker Care Teams Supervisor Tumbling And Rolling Relationship Specialty Start Date End Date Kimberly Sánchez MD PCP - General Family Practice 05/04/20
--- OUTSIDE RECORDS SUMMARY | 2024-10-17 19:09 | XMS_ITS | Clinical Summary ---
Author Organization [facility] Address [address] [address] Care Team Providers Care Staff Research Scientist Name Role Phone Unavailable Primary Care Provider Unavailabl e Source Comments You are receiving this document as you are listed as the primary care provider,follow-up provider, or the patient has been referred to you for consultation.This is in compliance with the Medicare andGrant Hospital[employer] EHR Incentive Program,which states Providers who transition their patient to another setting of careor provider of care or refers their patient to another provider of care shouldprovide summary care record for each transition of care or referral. [facility] Allergies No known active allergies Medications escitalopram (LEXAPRO) 10 MG tablet Take 1 Tablet (10 mg) by mouth every morning. 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
[2024-10-17 19:23] LABS: Albumin* 4.5 g/dL (3.3-5.0); Chloride* 104 mmol/L (96-114); Potassium* 3.7 mmol/L (3.6-5.1); Sodium* 137 mmol/L (135-149)
[2024-10-17] MEDS: MAGNESIUM IV 4 GM/100 ML PIGGYBACK IVPB (19:23)
[2024-10-17 19:26] LABS: Alanine Aminotransferase* 38 U/L (4-35); Alkaline Phosphatase* 107 U/L (40-150); Anion Gap 9 mEq/L (7-15); Aspartate Amino Transferase* 26 U/L (12-35); Bilirubin Total* 0.3 mg/dL (0.1-1.5); Blood Urea Nitrogen* 22 mg/dL (5-24); Calcium* 9.7 mg/dL (8.4-10.6); Carbon Dioxide* 24 mmol/L (20-32); Creatinine* 0.6 mg/dL (0.5-1.5); Estimated Glomerular Filt Rate 123 ml/min; Glucose* 89 mg/dL (60-115); Total Protein* 7.6 g/dL (6.0-8.3)
[2024-10-17] MEDS: LACTATED RINGERS 1000 ML 1,000 ML 75 ML IV (19:27)
[2024-10-17] MEDS: MAGNESIUM Infusion 40 GM/1,000 ML IV.SOLN IVPB (19:57)
--- NOTE | 2024-10-17 20:03 | P.FPHP_ITS ---
History of Present Illness History of Present Illness Date Seen: 10/17/24 Chief complaint: post preeclampsia Narrative: Lucille Pringle is a 29 year old female who had a vaginal delivery on 10/11 at 38 weeks gestation. She was induced for preeclampsia. She required a prolonged hospital stay due to elevated blood pressures and mildly elevated liver enzymes. She was started on labetalol and nifedipine. She was discharged on 10/15. She had a mild headache through her stay that was resolved with ibuprofen and acetaminophen. She was seen in the clinic on 10/16. Blood pressures were normal and liver labs were improved. She overall felt well except mild and intermittent headaches. She had been closely monitoring blood pressure at home and numbers were in the normal range. She started to feel a little off around 5 pm today. She checked her blood pressure at home and it was around 160/100. She called in for advice and was recommended to come to the ER. In the ER, BP was initially quite high and she was given a dose of IV hydralazine. Liver labs were improved. OB was consulted and she was recommended to be admitted for severe preeclampsia and started on magnesium. On the floor, her blood pressures were significantly improved. Her headache was mild and improved from prior. No leg swelling. No shortness of breath or chest pain. No visual changes. Review of Systems Status of ROS: Reports: 10 or more systems reviewed and unremarkable except as noted in History and below [facility] Medical History ?Z34.90 - Encounter for supervision of normal , unspecified, unspecified trimester (ICD-10) History of pre-eclampsia in prior , currently in third trimester ?O09.293 - Supervision of with other poor reproductive or obstetric history, third trimester (ICD-10) History of maternal vaginal hematoma, currently in third trimester (07/08/21) ?O09.293 - Supervision of with other poor reproductive or obstetric history, third trimester (ICD-10) History of hemorrhage, currently in third trimester ?O09.293 - Supervision of with other poor reproductive or obstetric history, third trimester (ICD-10) Surgical History History of wisdom tooth extraction ?K08.409 - Partial loss of teeth, unspecified cause, unspecified class (ICD- 10) Family History Mother Breast cancer Thyroid disease High blood pressure Maternal Grandmother Colon cancer Paternal Grandmother Diabetes Father High blood pressure Social History Narrative: Cis-gender, heterosexual woman. Relationship status: . 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 Tobacco: Lifetime nonsmoker E-cigarettes: No Alcohol: No Illicit/recreational drugs: No Safety concerns at home or work: No Dietary restriction(s): None Exercise: Yes, walks and does yoga 3 times per week What is your current living situation?: I presently have a place to live Problems where you live: no known problems In the past 12 months, utilities in danger of being shut off: no In past 12 months, lack of transportation kept you from medical appts, meetings, work, or getting things needed for daily living: no In the past 12 mos, have been you worried that your food would run out before you had money to buy more?: never true In the past 12 mos, the food you bought just didn't last and you didn't have money to buy more?: never true Smoking Status: Never smoker How often do you have a drink containing alcohol: never AUDIT-C Alcohol total score: 0 Non-prescribed substance use: denies use How often does anyone, including family, friends and others, physically hurt you : never How often does anyone, including family, friends and others, insult or talk down to you: never How often does anyone, including family, friends and others, threaten you with harm: never How often does anyone, including family, friends and others, scream or curse at you: never Meds Home Medications and Allergies Home Medications ?Medication ?Instructions ?Recorded ?Confirmed ?Type docosahexaenoic acid 200 mg 200 mg PO DAILY 09/05/24 10/10/24 History capsule ( DHA) fluticasone propionate 50 1 spray intranasal QDAY 09/05/24 10/10/24 History mcg/actuation nasal spray,suspension (Flonase Allergy Relief) ferrous sulfate 325 mg (65 mg 325 mg PO QDAY 10/10/24 10/10/24 History iron) tablet (iron) Allergies Allergy/AdvReac Type Severity Reaction Status Date / Time No Known Drug Allergies Allergy Verified 10/12/24 18:38 Exam Const: Vital Signs, click to edit/add: Vital Signs - 24 hr 10/17/24 18:25 10/17/24 18:38 10/17/24 18:44 Temperature Pulse Rate 66 Pulse Rate [Pulse Oximeter] 70 Respiratory Rate 16 Blood Pressure Blood Pressure [Le ft Arm] Blood Pressure [Le ft Upper Arm] 191/106 H 188/111 H Pulse Oximetry 99 99 Oxygen Delivery Me thod Room Air 10/17/24 18:45 10/17/24 18:48 10/17/24 18:49 Temperature Pulse Rate 67 64 65 Pulse Rate [Pulse Oximeter] Respiratory Rate Blood Pressure 189/103 H Blood Pressure [Le ft Arm] Blood Pressure [Le ft Upper Arm] Pulse Oximetry 99 99 99 Oxygen Delivery Me thod 10/17/24 18:57 10/17/24 19:19 10/17/24 19:28 Temperature 98.8 F Pulse Rate Pulse Rate [Pulse Oximeter] 89 88 Respiratory Rate 16 16 Blood Pressure 152/95 H Blood Pressure [Le ft Arm] 141/84 H 137/83 Blood Pressure [Le ft Upper Arm] Pulse Oximetry 100 100 Oxygen Delivery Me thod Room Air 10/17/24 19:38 10/17/24 19:48 10/17/24 19:58 Temperature Pulse Rate Pulse Rate [Pulse Oximeter] 88 91 90 Respiratory Rate 16 16 16 Blood Pressure Blood Pressure [Le ft Arm] 131/77 132/83 129/80 Blood Pressure [Le ft Upper Arm] Pulse Oximetry 99 98 99 Oxygen Delivery Me thod Room Air Room Air Room Air Documenting provider has reviewed patient's vital signs: yes Common normals: no apparent distress and oriented x3 General appearance: comfortable HENMT: Common normals: normocephalic Head and scalp: normocephalic Face and sinus: normal facial exam Mouth: oral and palatal mucosa normal Eye: General eye: normal appearance of both eyes Neck & C-Spine: Common normals: full ROM Lymph: Lymphatic: no lymphadenopathy noted Chest: Common normals: palpation of chest normal Resp: Common normals: normal respiratory effort, no retractions and clear to auscultation bilaterally Auscultation: clear to auscultation bilaterally Cardio: Common normals: regular rate, regular rhythm and no murmurs Rate: regular rate Rhythm: regular rhythm GI: Common normals: Normal to inspection, nondistended, normoactive bowel sounds present, soft to palpation and non-tender Palpation: soft Extremity: Common normals: normal to inspection, full ROM, no calf tenderness and no pedal edema Neuro: Common normals: oriented x3, moves all extremities and no focal motor deficits Motor exam: no tremor noted and other (No clonus) Psych: Appearance: grossly normal Skin: Common normals: no rashes or lesions noted General skin exam: no rashes or lesions noted Results Labs Labs: Abnormal lab results 10/17/24 Range/Units 18:45 ALT 38 H (4-35) U/L BMP 10/17/24 10/17/24 10/17/24 18:45 18:45 18:45 Sodium Cancelled 137 Potassium Cancelled 3.7 Chloride Cancelled Carbon Dioxide BUN Creatinine Glucose Calcium 10/17/24 10/17/24 10/17/24 18:45 18:45 18:45 Sodium Potassium Chloride 104 Carbon Dioxide Cancelled 24 BUN Cancelled 22 Creatinine Cancelled Glucose Calcium 10/17/24 10/17/24 10/17/24 18:45 18:45 18:45 Sodium Potassium Chloride Carbon Dioxide BUN Creatinine 0.6 Glucose Cancelled 89 Calcium Cancelled 9.7 Liver Function 10/17/24 Range/Units 18:45 Total Bilirubin 0.3 (0.1-1.5) mg/dL AST 26 (12-35) U/L ALT 38 H (4-35) U/L Alkaline Phosphatase 107 (40-150) U/L Albumin 4.5 (3.3-5.0) g/dL All other labs normal. Assessment and Plan Assessment and plan (1) Pre-eclampsia in period: Problem comment: with severe features based on BP criteria Status: Acute Plan She meets criteria for severe preeclampsia in the post period with multiple severe range pressures in the ER. BP much improved with hydralazine and magnesium. Will have her on mag for 24 hours per protocol. Will monitor labs q6h. Will hold nifedipine and only restart if BP > 140/90. Will continue labetalol for now but only will give dose if BP is > 130/80 at this time. Symptoms are minimal. Will monitor for worsening. OB has been consulted. Case discussed with Dr. Vazquez.
[2024-10-17] MEDS: CETIRIZINE HCL 10 MG TABLET PO (20:40)
[2024-10-17] MEDS: ACETAMINOPHEN 500 MG TABLET 1000 MG PO (20:40)
[2024-10-17] MEDS: LABETALOL HCL 100 MG TABLET 300 MG PO (20:42)
[2024-10-17] MEDS: FLUTICASONE PROPIONATE NASAL 1 SPRAY NOSTRIL-B (20:43)
--- NOTE | 2024-10-17 20:50 | P.OBCN_ITS ---
OB - CN: HPI Date of Consult Date Seen: 10/17/24 Patient: Won Patient Consult date: 10/17/24 Requesting Physician: Rafa High MD Primary Care Provider: Kimberly Sánchez MD Consult Narrative Narrative: The patient is a 29 year old G2 P 2001 who presented to the ED complaining of elevated BP at home and not feeling right. She is day #6 following a vaginal delivery. She stated that her BP at home early this evening was over 160 systolic. In the ED, her initial BP was 191/106, with repeat values of 188/111, and 189/103. She denied headache, right upper quadrant or chest pain, or shortness of breath. She complained only of some mild dizziness and mild neck pain. Her labor was induced last week for pre-eclampsia without severe features. She did not require magnesium sulfate during her delivery admission. At the time of discharge, she had mild elevation in her AST and ALT (42 and 50 respectively). She had been discharged to home on labetalol 300 mg TID and nifedipine ER 30 mg daily. The patient's first delivery was complicated by preeclampsia, and development of severe features necessitating a readmission for magnesium sulfate. She also had a hemorrhage due to a vaginal hematoma requiring operative repair and transfusion following her previous delivery. History of Present complications: preeclampsia History History 2 Elective abortions Para 2 Spontaneous abortions Hx # Term Pregnancies Ectopic pregnancies Hx # Pregnancies Multiple births Number of Living Children 2 [facility] Medical History ?Z34.90 - Encounter for supervision of normal , unspecified, unspe cified trimester (ICD-10) History of pre-eclampsia in prior , currently in third trimester ?O09.293 - Supervision of with other poor reproductive or obstetric history, third trimester (ICD-10) History of maternal vaginal hematoma, currently in third trimester (07/08/21) ?O09.293 - Supervision of with other poor reproductive or obstetric history, third trimester (ICD-10) History of hemorrhage, currently in third trimester ?O09.293 - Supervision of with other poor reproductive or obstetric history, third trimester (ICD-10) Surgical History History of wisdom tooth extraction ?K08.409 - Partial loss of teeth, unspecified cause, unspecified class (ICD- 10) Family History Mother Breast cancer Thyroid disease High blood pressure Maternal Grandmother Colon cancer Paternal Grandmother Diabetes Father High blood pressure Social History Narrative: Cis-gender, heterosexual woman. Relationship status: . 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 Tobacco: Lifetime nonsmoker E-cigarettes: No Alcohol: No Illicit/recreational drugs: No Safety concerns at home or work: No Dietary restriction(s): None Exercise: Yes, walks and does yoga 3 times per week What is your current living situation?: I presently have a place to live Problems where you live: no known problems In the past 12 months, utilities in danger of being shut off: no In past 12 months, lack of transportation kept you from medical appts, meetings, work, or getting things needed for daily living: no In the past 12 mos, have been you worried that your food would run out before you had money to buy more?: never true In the past 12 mos, the food you bought just didn't last and you didn't have money to buy more?: never true Smoking Status: Never smoker How often do you have a drink containing alcohol: never AUDIT-C Alcohol total score: 0 Non-prescribed substance use: denies use How often does anyone, including family, friends and others, physically hurt you : never How often does anyone, including family, friends and others, insult or talk down to you: never How often does anyone, including family, friends and others, threaten you with harm: never How often does anyone, including family, friends and others, scream or curse at you: never Meds Home Medications and Allergies Home Medications ?Medication ?Instructions ?Recorded ?Confirmed ?Type docosahexaenoic acid 200 mg 200 mg PO DAILY 09/05/24 10/10/24 History capsule ( DHA) fluticasone propionate 50 1 spray intranasal QDAY 09/05/24 10/10/24 History mcg/actuation nasal spray,suspension (Flonase Allergy Relief) ferrous sulfate 325 mg (65 mg 325 mg PO QDAY 10/10/24 10/10/24 History iron) tablet (iron) Allergies Allergy/AdvReac Type Severity Reaction Status Date / Time No Known Drug Allergies Allergy Verified 10/12/24 18:38 OB - H&P: Exam Physical Exam: Vital signs: Temp Pulse Resp BP Pulse Ox O2 Del Method 98.8 F 97 16 115/75 98 Room Air 10/17/24 18:57 10/17/24 20:45 10/17/24 20:45 10/17/24 20:45 10/17/24 20:45 10/17/24 20:45 Narrative: Vitals noted. OB - Results Labs Labs: BMP 10/17/24 10/17/24 10/17/24 18:45 18:45 18:45 Sodium Cancelled 137 Potassium Cancelled 3.7 Chloride Cancelled Carbon Dioxide BUN Creatinine Glucose Calcium 10/17/24 10/17/24 10/17/24 18:45 18:45 18:45 Sodium Potassium Chloride 104 Carbon Dioxide Cancelled 24 BUN Cancelled 22 Creatinine Cancelled Glucose Calcium 10/17/24 10/17/24 10/17/24 18:45 18:45 18:45 Sodium Potassium Chloride Carbon Dioxide BUN Creatinine 0.6 Glucose Cancelled 89 Calcium Cancelled 9.7 Liver Function 10/17/24 Range/Units 18:45 Total Bilirubin 0.3 (0.1-1.5) mg/dL AST 26 (12-35) U/L ALT 38 H (4-35) U/L Alkaline Phosphatase 107 (40-150) U/L Albumin 4.5 (3.3-5.0) g/dL OB - CN: A/P Assessment and Plan (1) Pre-eclampsia in period: Problem details: with severe features based on BP criteria Status: Acute Plan 1. Admission recommended. I spoke with Dr. High, [facility], who felt comfortable admitting the patient to the [facility] service with OB service consulting. 2. Severe range BP treated with IV hydralazine per protocol. 3. Magnesium sulfate infusion initiated per protocol. Continue for 24 hours. 4. Serial labs while on Mag. 5. Continue antihypertensive medication (labetalol and nifedipine). Hold for hypotension. 6. OB service available prn. Total Time Spent Total time spent: 30 minutes
[2024-10-18] VITALS (13 sets, daily range): BP systolic 112–144; BP diastolic 70–91; PULSE 72–90; RESP 12–16; TEMP 36.4–36.8; O2SAT 97–100
[2024-10-18] MEDS: IBUPROFEN 600 MG TABLET PO ×3 (01:47→14:11)
[2024-10-18 01:56] LABS: Hematocrit 34.4 % (33.0-51.0); Hemoglobin* 11.3 gm/dL (12.0-16.0); Mean Corpuscular HGB Conc 33 gm/dL (32-36); Mean Corpuscular Hemoglobin 29 pg (26-34); Mean Corpuscular Volume 87 fL (80-100); Platelet Count* 335 K/uL (140-440); Red Blood Count 3.96 m/uL (4.00-5.20); White Blood Count* 7.16 K/uL (4.50-11.00)
[2024-10-18 02:10] LABS: Slide Review Reflex No
[2024-10-18 02:14] LABS: Blood Urea Nitrogen* 18 mg/dL (5-24); Creatinine* 0.5 mg/dL (0.5-1.5); Est. Creatinine Clearance* 128.94; Estimated Glomerular Filt Rate 129 ml/min
[2024-10-18 02:15] LABS: Alanine Aminotransferase* 32 U/L (4-35); Aspartate Amino Transferase* 23 U/L (12-35)
[2024-10-18] MEDS: ACETAMINOPHEN 500 MG TABLET 1000 MG PO ×3 (05:46→18:07)
[2024-10-18] MEDS: DOCUSATE SODIUM 100 MG CAPSULE PO (07:43)
[2024-10-18 07:46] LABS: Hematocrit 35.2 % (33.0-51.0); Hemoglobin* 11.6 gm/dL (12.0-16.0); Mean Corpuscular HGB Conc 33 gm/dL (32-36); Mean Corpuscular Hemoglobin 29 pg (26-34); Mean Corpuscular Volume 87 fL (80-100); Platelet Count* 353 K/uL (140-440); Red Blood Count 4.07 m/uL (4.00-5.20); White Blood Count* 5.24 K/uL (4.50-11.00)
[2024-10-18 07:57] LABS: Slide Review Reflex No
[2024-10-18 08:12] LABS: Aspartate Amino Transferase* 23 U/L (12-35); Blood Urea Nitrogen* 13 mg/dL (5-24); Creatinine* 0.5 mg/dL (0.5-1.5); Est. Creatinine Clearance* 128.94; Estimated Glomerular Filt Rate 129 ml/min
[2024-10-18 08:13] LABS: Alanine Aminotransferase* 32 U/L (4-35)
[2024-10-18 08:25] LABS: Magnesium* 6.8 mg/dL (1.5-2.6)
--- NOTE | 2024-10-18 08:27 | PM.OBPNVD1 ---
OB - PN:Subj Subjective Date Seen: 10/18/24 Narrative: Lucille is a 29 yo G2p@ pp day 7 readmit for preeclampsia with severe range BP requiring magnesium. She feels poorly on mag with mild headache, but otherwise doing well. Labs have remained within normal limits overnight. Blood pressures are also well controlled with labetalol 300 mg TID. OB - PN: Obj Exam Physical Exam: Vital signs: Temp Pulse Resp BP Pulse Ox O2 Del Method 97.7 F 79 16 119/80 100 Room Air 10/18/24 07:21 10/18/24 07:21 10/18/24 07:21 10/18/24 07:21 10/18/24 07:21 10/18/24 07:21 Constitutional: Constitutional: no acute distress and cooperative OB - PN: Obj Data Labs Labs: Laboratory Results - last 24 hr 10/17/24 10/17/24 10/17/24 18:45 18:45 18:45 WBC RBC Hgb Hct MCV MCH MCHC Plt Count Sodium Cancelled 137 Potassium Cancelled 3.7 Chloride Cancelled Carbon Dioxide Anion Gap BUN Creatinine Estimated Creat Clear Estimated GFR Glucose Calcium Magnesium Total Bilirubin AST ALT Alkaline Phosphatase Total Protein Albumin 10/17/24 10/17/24 10/17/24 18:45 18:45 18:45 WBC RBC Hgb Hct MCV MCH MCHC Plt Count Sodium Potassium Chloride 104 Carbon Dioxide Cancelled 24 Anion Gap Cancelled 9 BUN Cancelled Creatinine Estimated Creat Clear Estimated GFR Glucose Calcium Magnesium Total Bilirubin AST ALT Alkaline Phosphatase Total Protein Albumin 10/17/24 10/17/24 10/17/24 18:45 18:45 18:45 WBC RBC Hgb Hct MCV MCH MCHC Plt Count Sodium Potassium Chloride Carbon Dioxide Anion Gap BUN 22 Creatinine Cancelled 0.6 Estimated Creat Clear Cancelled Estimated GFR Cancelled 123 Glucose Cancelled Calcium Magnesium Total Bilirubin AST ALT Alkaline Phosphatase Total Protein Albumin 10/17/24 10/17/24 10/18/24 18:45 18:45 01:50 WBC 7.16 RBC 3.96 L Hgb 11.3 L Hct 34.4 MCV 87 MCH 29 MCHC 33 Plt Count 335 Sodium Potassium Chloride Carbon Dioxide Anion Gap BUN 18 Creatinine 0.5 Estimated Creat Clear 128.94 Estimated GFR 129 Glucose 89 Calcium Cancelled 9.7 Magnesium 6.0 H* Total Bilirubin 0.3 AST 26 23 ALT 38 H 32 Alkaline Phosphatase 107 Total Protein 7.6 Albumin 4.5 10/18/24 07:35 WBC 5.24 RBC 4.07 Hgb 11.6 L Hct 35.2 MCV 87 MCH 29 MCHC 33 Plt Count 353 Sodium Potassium Chloride Carbon Dioxide Anion Gap BUN 13 Creatinine 0.5 Estimated Creat Clear 128.94 Estimated GFR 129 Glucose Calcium Magnesium 6.8 H* Total Bilirubin AST 23 ALT 32 Alkaline Phosphatase Total Protein Albumin OB - PN: A/P Delivery Assessment and Plan (1) Pre-eclampsia in period: Problem details: with severe features based on BP criteria Status: Acute Assessment and Plan: Continue mag until 1999 tonight. Repeat labs in AM. Continue to monitor BP closely and adjust medications as needed, especially after discontinuation of Mag. May be able to d/c tomorrow evening if BP remains well controlled. Plan Plan: routine care
[2024-10-18] MEDS: LACTATED RINGERS 1000 ML 1,000 ML 75 ML IV (09:00)
[2024-10-18] MEDS: LABETALOL HCL 100 MG TABLET 300 MG PO ×3 (09:00→21:00)
[2024-10-18] MEDS: FERROUS SULFATE 325 MG TABLET PO (09:00)
[2024-10-18 14:20] LABS: Magnesium* 6.8 mg/dL (1.5-2.6)
[2024-10-18] MEDS: MAGNESIUM Infusion 40 GM/1,000 ML IV.SOLN IVPB (15:58)
[2024-10-18] MEDS: FLUTICASONE PROPIONATE NASAL 1 SPRAY NOSTRIL-B (20:20)
[2024-10-18] MEDS: CETIRIZINE HCL 10 MG TABLET PO (20:20)
[2024-10-18] MEDS: NIFEdipine 30 MG TAB.ER.24 PO (22:14)
[2024-10-19] VITALS (21 sets, daily range): BP systolic 125–169; BP diastolic 76–109; PULSE 62–92; RESP 16; TEMP 36.4–36.9; O2SAT 97–98
[2024-10-19 06:56] LABS: Basophils Absolute Auto 0.02 K/uL (0.00-0.30); Basophils Percent Auto 0.4 % (0.0-3.0); Eosinophils Absolute Auto 0.15 K/uL (0.00-0.50); Eosinophils Percent Auto 3.3 % (0.0-7.0); Hematocrit 34.4 % (33.0-51.0); Hemoglobin* 11.3 gm/dL (12.0-16.0); Immature Granulocytes Abs Auto 0.02 K/uL (0.00-0.30); Immature Granulocytes Pct Auto 0.4 %; Lymphocytes Absolute Auto 1.61 K/uL (0.90-2.90); Lymphocytes Percent Auto 35.1 % (20-44); Mean Corpuscular HGB Conc 33 gm/dL (32-36); Mean Corpuscular Hemoglobin 29 pg (26-34); Mean Corpuscular Volume 88 fL (80-100); Monocytes Percent Auto 9.8 % (0.0-11.0); Neutrophils Absolute Auto 2.34 K/uL (1.7-7.0); Platelet Count* 371 K/uL (140-440); RDW Coefficient of Variation % 13.4 % (11.5-15.5); Red Blood Count 3.93 m/uL (4.00-5.20); White Blood Count* 4.59 K/uL (4.50-11.00)
[2024-10-19 06:59] LABS: Slide Review Reflex No
[2024-10-19 07:09] LABS: Alanine Aminotransferase* 28 U/L (4-35); Aspartate Amino Transferase* 26 U/L (12-35); Creatinine* 0.6 mg/dL (0.5-1.5); Est. Creatinine Clearance* 107.45; Estimated Glomerular Filt Rate 123 ml/min
[2024-10-19 07:25] LABS: NT Pro B Type NatriureticPept* 196 pg/mL
--- NOTE | 2024-10-19 07:42 | PM.OBPNVD1 ---
OB - PN:Subj Subjective Time Seen by Provider: 07:42 Date Seen: 10/19/24 Narrative: 29 yo pp day 7 readmit for preeclampsia with severe range BP requiring magnesium. Magnesium stopped after 24 hours around 1930 last night. Was on labetolol and nifedipine prior to Mag but BP's decreased while on Mag and so nifedipine was stopped. It was restarted at 30mg ER last evening due to BP's increasing. Overnight BP's 130's/90's. She reports overall feeling good but notes headache, improves with meds but she was worried she was covering up brain swelling so she stopped meds for her headache. She reports no other sxs OB - PN: Obj Exam Physical Exam: Vital signs: Temp Pulse Resp BP Pulse Ox O2 Del Method 97.6 F 71 16 130/86 98 Room Air 10/19/24 03:37 10/19/24 03:37 10/19/24 03:37 10/19/24 03:37 10/19/24 03:37 10/19/24 03:37 Constitutional: Constitutional: no acute distress Routine HEENT Exam: Head: Present normal inspection Eye: Present normal appearance ENT: Present mucous membranes moist Routine Respiratory Exam: Respiratory: Present CTA bilaterally; Absent crackles or rales Routine Cardiovascular Exam: Cardiovascular: Present RRR Routine Abdominal Exam: Fundus: Present firm OB - PN: Obj Data Labs Labs: Laboratory Results - last 24 hr 10/18/24 10/18/24 10/19/24 07:35 13:41 06:33 WBC 5.24 4.59 RBC 4.07 3.93 L Hgb 11.6 L 11.3 L Hct 35.2 34.4 MCV 87 88 MCH 29 29 MCHC 33 33 RDW Coeff of Tanisha 13.4 Plt Count 353 371 Neut % (Auto) 51.0 Lymph % (Auto) 35.1 [place] % (Auto) 9.8 Eos % (Auto) 3.3 Baso % (Auto) 0.4 Neut # (Auto) 2.34 Lymph # (Auto) 1.61 [place] # (Auto) 0.40 Eos # (Auto) 0.15 Baso # (Auto) 0.02 Abs Immat Gran (auto) 0.02 Imm/Tot Granulo (auto) 0.4 BUN 13 Creatinine 0.5 0.6 Estimated Creat Clear 128.94 107.45 Estimated GFR 129 123 Magnesium 6.8 H* 6.8 H* AST 23 26 ALT 32 28 NT-Pro-B Natriuret Pep 196 OB - PN: A/P Delivery Assessment and Plan (1) Pre-eclampsia in period: Problem details: with severe features based on BP criteria Status: Acute Assessment and Plan: -Labs this morning wnl -She will be off magnesium for 24hours tonight at 1730, discussed with pt needs stay at minimum until then. BP's need controlled for minimum of 12 hours prior to discharge. -Discussed BP goals with pt and RN. She is able to go home if feeling well and BP's <140/90 for at least 12 hours prior to discharge but goal BP is < 130/80. Will add another dose nifedipine ER 30mg this morning so meds will be Labetalol 300mg tid, nifedipine 30mg ER bid. RN will update me later today on how doing, sooner if needed. -ALl ?'s answered
[2024-10-19] MEDS: NIFEdipine 30 MG TAB.ER.24 PO (08:34)
[2024-10-19] MEDS: LABETALOL HCL 100 MG TABLET 300 MG PO (08:35)
[2024-10-19] MEDS: FERROUS SULFATE 325 MG TABLET PO (08:35)
[2024-10-19] MEDS: ACETAMINOPHEN 500 MG TABLET 1000 MG PO ×3 (08:36→20:33)
[2024-10-19] MEDS: DOCUSATE SODIUM 100 MG CAPSULE PO (08:37)
[2024-10-19] MEDS: LABETALOL HCL 100 MG TABLET 400 MG PO ×2 (14:06→21:44)
[2024-10-19] MEDS: NIFEdipine 30 MG TAB.ER.24 60 MG PO (18:17)
[2024-10-19] MEDS: HYDRALAZINE HCL 20 MG/ML inj IVP (20:00)
[2024-10-19] MEDS: FLUTICASONE PROPIONATE NASAL 1 SPRAY NOSTRIL-B (20:34)
[2024-10-19] MEDS: CETIRIZINE HCL 10 MG TABLET PO (20:34)
[2024-10-19 20:40] LABS: Platelet Count* 393 K/uL (140-440)
[2024-10-19 20:52] LABS: Alanine Aminotransferase* 33 U/L (4-35); Aspartate Amino Transferase* 37 U/L (12-35); Creatinine* 0.5 mg/dL (0.5-1.5); Est. Creatinine Clearance* 128.94; Estimated Glomerular Filt Rate 129 ml/min
--- NOTE | 2024-10-19 22:00 | P.OBPN_ITS ---
OB - PN:Subj Subjective Time Seen by Provider: 21:00 Date Seen: 10/19/24 Interval history: Notified by RN, BP's in severe range x 2 with headache. This triggered the hydralazine pathway and RN gave 5mg IV hydralazine and started checking bp more frequently. BP's have since decreased below severe range. Pt tells me headache has improved now with BP coming down. she reports no other sxs currently. No vision changes, no sob, no abd pain. going well. Narrative: Pt is s/p at 38wks, was induced for preeclampsia. Had elevated BP's, headache and elevated LFT's (42, 50) and was started on labetalol and nifedipine and but did not require magnesium. Was discharged home and had close followup next day with BP okay and LFT's improved. She then presented to ER 10/17/24 due to feeling off and BP's in severe range. Given IV hydralazine in ER and had labs wnl. Started on magnesium and continued to 24 hours, d/c'd 10/18/241952. BP's were better on mag so nifedipine had been stopped while on mag. Off Mag, Bp's increasing so Nifedipine restarted and labetalol increased throughout day. OB - PN: Obj Exam Physical Exam: Vital signs: Temp Pulse Resp BP Pulse Ox O2 Del Method 98.4 F 75 16 145/84 H 97 Room Air 10/19/24 21:36 10/19/24 21:36 10/19/24 21:36 10/19/24 21:36 10/19/24 21:36 10/19/24 21:36 Constitutional: Constitutional: no acute distress Routine HEENT Exam: Head: Present normal inspection Eye: Present normal appearance ENT: Present mucous membranes moist Routine Respiratory Exam: Respiratory: Present CTA bilaterally; Absent crackles or rales Routine Cardiovascular Exam: Cardiovascular: Present RRR Routine Extremities Exam: Extremities: Absent pedal edema Routine Neurological Exam: Neurological: Present oriented X3 and normal reflexes; Absent clonus OB - PN: Obj Data Labs Labs: Laboratory Results - last 24 hr 10/19/24 10/19/24 06:33 20:25 WBC 4.59 RBC 3.93 L Hgb 11.3 L Hct 34.4 MCV 88 MCH 29 MCHC 33 RDW Coeff of Tanisha 13.4 Plt Count 371 393 Neut % (Auto) 51.0 Lymph % (Auto) 35.1 [place] % (Auto) 9.8 Eos % (Auto) 3.3 Baso % (Auto) 0.4 Neut # (Auto) 2.34 Lymph # (Auto) 1.61 [place] # (Auto) 0.40 Eos # (Auto) 0.15 Baso # (Auto) 0.02 Abs Immat Gran (auto) 0.02 Imm/Tot Granulo (auto) 0.4 Creatinine 0.6 0.5 Estimated Creat Clear 107.45 128.94 Estimated GFR 123 129 AST 26 37 H ALT 28 33 NT-Pro-B Natriuret Pep 196 OB - PN: A/P Delivery Assessment and Plan (1) Pre-eclampsia in period: Problem details: with severe features based on BP criteria Status: Acute Assessment and Plan: See above summary. Now with severe BP again x2 tonight requiring IV hydralazine 5mg x 1 around 8pm. BP's since below severe range. -Continue labetalol and nifedipine. BP's checks per pathway timing. -repeat labs 6 hours x 2 then repeat lab timing pending these levels. -discussed plan with pt and all ?'s answered multiple times and pt reported comfortable with plan. -Updated OB Dr Gilliland, she recommended if requires IV hydralazine again overnight, restart Magnesium for 12 hours OR if headache again increases and BP's high 150's/high 100's, t/c restart magnesium for 12 hours. Can titrate daytime labetalol if needed/able. Time spent on floor currently regarding pt: 95minutes.
[2024-10-20] VITALS (9 sets, daily range): BP systolic 113–130; BP diastolic 75–84; PULSE 73–89; RESP 16–18; TEMP 36.6–37; O2SAT 97–98
[2024-10-20 02:27] LABS: Basophils Absolute Auto 0.03 K/uL (0.00-0.30); Basophils Percent Auto 0.6 % (0.0-3.0); Eosinophils Absolute Auto 0.12 K/uL (0.00-0.50); Eosinophils Percent Auto 2.4 % (0.0-7.0); Hematocrit 34.4 % (33.0-51.0); Hemoglobin* 11.2 gm/dL (12.0-16.0); Immature Granulocytes Abs Auto 0.01 K/uL (0.00-0.30); Immature Granulocytes Pct Auto 0.2 %; Lymphocytes Absolute Auto 1.84 K/uL (0.90-2.90); Lymphocytes Percent Auto 36.5 % (20-44); Mean Corpuscular HGB Conc 33 gm/dL (32-36); Mean Corpuscular Hemoglobin 29 pg (26-34); Mean Corpuscular Volume 88 fL (80-100); Monocytes Percent Auto 9.9 % (0.0-11.0); Neutrophils Absolute Auto 2.54 K/uL (1.7-7.0); Neutrophils Percent Auto 50.4 % (42.0-72.0); Platelet Count* 354 K/uL (140-440); RDW Coefficient of Variation % 13.3 % (11.5-15.5); Red Blood Count 3.93 m/uL (4.00-5.20); White Blood Count* 5.04 K/uL (4.50-11.00)
[2024-10-20 02:30] LABS: Slide Review Reflex No
[2024-10-20] MEDS: ACETAMINOPHEN 500 MG TABLET 1000 MG PO ×3 (02:33→16:01)
[2024-10-20 02:42] LABS: Alanine Aminotransferase* 28 U/L (4-35); Aspartate Amino Transferase* 31 U/L (12-35); Creatinine* 0.5 mg/dL (0.5-1.5); Est. Creatinine Clearance* 128.94; Estimated Glomerular Filt Rate 129 ml/min
[2024-10-20] MEDS: LABETALOL HCL 100 MG TABLET 400 MG PO ×2 (05:55→14:09)
[2024-10-20] MEDS: NIFEdipine 30 MG TAB.ER.24 60 MG PO ×2 (05:56→18:19)
--- NOTE | 2024-10-20 07:40 | PM.OBPNVD1 ---
OB - PN:Subj Subjective Time Seen by Provider: 07:41 Date Seen: 10/20/24 Interval history: Received IV hydralazine just after 1999 last evening for severe range pressure. Since then, BPs have been well-controlled. Currently 119/77. Severe MANLEY with elevated pressure, now resolved. AST mildly elevated to 37 at 2000, downtrending at 0200. Feeling well this AM. No complaints. Denies MANLEY, blurry vision, RUQ, edema. well. Bleeding appropriate. Urinating well and having BMs. OB - PN: Obj Exam Physical Exam: Vital signs: Temp Pulse Resp BP Pulse Ox O2 Del Method 98.4 F 73 18 119/77 97 Room Air 10/20/24 05:42 10/20/24 05:42 10/20/24 05:42 10/20/24 05:42 10/20/24 05:42 10/20/24 05:42 Narrative: General appearance: Well-appearing adult female. Alert, oriented and appropriate. Sitting up in hospital bed. HEENT: EOMI, no conjunctival injection or discharge. MMM. Neck: Supple. CV: RRR, no rubs, murmurs or extra heart sounds. Pulm: CTAB, no wheezes, rales or rhonchi. MSK: Moving all extremities. Ext: Warm and well-perfused. No LE edema. Skin: No rashes appreciated over exposed skin. Neuro: Grossly normal strength and sensation. No focal deficits. Patellar reflexes 1+ and symmetric. Psych: Normal affect. OB - PN: Obj Data Labs Labs: Laboratory Results - last 24 hr 10/19/24 10/20/24 20:25 02:20 WBC 5.04 RBC 3.93 L Hgb 11.2 L Hct 34.4 MCV 88 MCH 29 MCHC 33 RDW Coeff of Tanisha 13.3 Plt Count 393 354 Neut % (Auto) 50.4 Lymph % (Auto) 36.5 [place] % (Auto) 9.9 Eos % (Auto) 2.4 Baso % (Auto) 0.6 Neut # (Auto) 2.54 Lymph # (Auto) 1.84 [place] # (Auto) 0.50 Eos # (Auto) 0.12 Baso # (Auto) 0.03 Abs Immat Gran (auto) 0.01 Imm/Tot Granulo (auto) 0.2 Creatinine 0.5 0.5 Estimated Creat Clear 128.94 128.94 Estimated GFR 129 129 AST 37 H 31 ALT 33 28 OB - PN: A/P Delivery Assessment and Plan (1) Pre-eclampsia in period: Problem details: Pt is s/p at 38wks, was induced for preeclampsia. Had elevated BP's, headache and elevated LFT's (42, 50) and was started on labetalol and nifedipine and but did not require magnesium. Was discharged home and had close followup next day with BP okay and LFT's improved. She then presented to ER 10/17/24 due to feeling off and BP's in severe range. Given IV hydralazine in ER and had labs wnl. Started on magnesium and continued to 24 hours, mag d/c'd 10/18/241952. BP's were better on mag so nifedipine had been stopped while on mag. Off Mag, Bp's increasing so Nifedipine restarted and labetalol titrated. Required IV hydralazine for severe range pressure x1 10/19/24 at ~2000. Status: Acute Assessment and Plan: BPs WNL overnight and patient feeling well. ALT downtrending, labs otherwise WNL. Adequate urine output. -Continue labetalol 400 mg TID and nifedipine 60 mg BID. BP's checks per pathway timing. -No additional labs unless recurrent severe range BP. -Per Dr. Pinto's discussion with OB Dr Gilliland evening 10/19, if recurrent severe range BP or new symptoms suggesting severe features, restart Magnesium for 12 hours. Can titrate daytime labetalol to 2400 mg per 24H. -Plan d/c this evening if BPs remain well controlled for 24H after last IV medication.
[2024-10-20] MEDS: DOCUSATE SODIUM 100 MG CAPSULE PO (08:10)
[2024-10-20] MEDS: FERROUS SULFATE 325 MG TABLET PO (08:10)
[2024-10-20] MEDS: IBUPROFEN 600 MG TABLET PO (11:01)
--- NOTE | 2024-10-20 20:22 | W.PM.OB.MED ---
DS: Providers Provider Time Seen by Provider: 07:30 Date Seen: 10/20/24 Date of admission: 10/17/24 19:11 Primary care physician: Kimberly Sánchez MD Admitting Clinician: Rafa High MD Consults: 10/17/24 22:20 Consult to Physician [CONS] Routine Comment: Consulting Provider: [facility] Has provider been notified: Yes Attending Physician on discharge: Cynthia Kennedy MD Date of Discharge: 10/20/24 DS: Diagnosis Discharge Diagnosis (1) Pre-eclampsia in period: Status: Acute Problem details: Pt is s/p at 38wks, was induced for preeclampsia. Had elevated BP's, headache and elevated LFT's (42, 50) and was started on labetalol and nifedipine and but did not require magnesium. Was discharged home and had close followup next day with BP okay and LFT's improved. She then presented to ER 10/17/24 due to feeling off and BP's in severe range. Given IV hydralazine in ER and had labs wnl. Started on magnesium and continued to 24 hours, mag d/c'd 10/18/241952. BP's were better on mag so nifedipine had been stopped while on mag. Off Mag, Bp's increasing so Nifedipine restarted and labetalol titrated. Required IV hydralazine for severe range pressure x1 10/19/24. Prior to discharge, BPs well-controlled for 24 hours on nifedipine ER 60 mg BID and labetalol 400 mg TID. Discharge Plan Discharge Disposition: Home, Self-Care Date of Admission: 10/17/24 19:11 Attending Provider on Discharge: Cynthia Kennedy Consulting Providers: Julianna Gilliland; Maria Luz Vazquez Primary Care Provider: Kimberly Sánchez Condition: Improved Anticipated Discharge Date/Time: 10/20/24 19:47 Discharge Medications: New acetaminophen 500 mg Tablet 1,000 mg PO Q6H PRN (Reason: Pain) Qty: 30 0RF docusate sodium 100 mg Capsule 100 mg PO DAILY Qty: 30 0RF labetalol 200 mg tablet 400 mg PO TID Qty: 84 2RF nifedipine 60 mg tablet extended release 60 mg PO BID Qty: 28 2RF ibuprofen 600 mg Tablet 600 mg PO Q6H PRN (Reason: Pain) Qty: 30 0RF Continued DHA 200 mg capsule 200 mg PO DAILY fluticasone propionate [Flonase Allergy Relief] 50 mcg/actuation spray,suspension 1 spray intranasal QDAY Rx Instructions: administer into each nostril ferrous sulfate [iron] 325 mg (65 mg iron) tablet 325 mg PO QDAY Discontinued nifedipine 30 mg Tablet Extended Release 24hr 30 mg PO HS Qty: 30 0RF labetalol 100 mg Tablet 300 mg PO TID Qty: 270 0RF Discharge Orders: Discharge Order (Routine); Ordered 10/20/24 Ordered By: Cynthia Kennedy Patient Education: Preeclampsia and Eclampsia After Delivery (GEN) Additional Instructions: - Check BP twice daily and record values. Bring to appt with Dr. Sánchez - If BP >160 systolic or >110 diastolic, rest and recheck after 5-10 mins. If remains >160/110, contact the center - If severe symptoms, such as severe headache not resolved with tylenol, new blurry vision, new right upper quadrant pain, new significant swelling, contact the center Activity Level: Activity as Tolerated Discharge Diet: Regular Follow Up Appointments: Kimberly Sánchez MD [Primary Care Provider] - (Thursday, October 24, 2024 as scheduled ) Forms: SocialFlow Info Instructions Hospital Course Labs Labs: Laboratory Tests 10/20/24 10/19/24 10/19/24 Range/Units 02:20 20:25 06:33 WBC 5.04 4.59 (4.50-11.00) K/uL RBC 3.93 L 3.93 L (4.00-5.20) m/uL Hgb 11.2 L 11.3 L (12.0-16.0) gm/dL Hct 34.4 34.4 (33.0-51.0) % MCV 88 88 (80-100) fL MCH 29 29 (26-34) pg MCHC 33 33 (32-36) gm/dL RDW Coeff of Tanisha 13.3 13.4 (11.5-15.5) % Plt Count 354 393 371 (140-440) K/uL Neut % (Auto) 50.4 51.0 (42.0-72.0) % Lymph % (Auto) 36.5 35.1 (20-44) % [place] % (Auto) 9.9 9.8 (0.0-11.0) % Eos % (Auto) 2.4 3.3 (0.0-7.0) % Baso % (Auto) 0.6 0.4 (0.0-3.0) % Neut # (Auto) 2.54 2.34 (1.7-7.0) K/uL Lymph # (Auto) 1.84 1.61 (0.90-2.90) K/uL [place] # (Auto) 0.50 0.40 (0.00-0.90) K/UL Eos # (Auto) 0.12 0.15 (0.00-0.50) K/uL Baso # (Auto) 0.03 0.02 (0.00-0.30) K/uL Abs Immat Gran (auto) 0.01 0.02 (0.00-0.30) K/uL Imm/Tot Granulo (auto) 0.2 0.4 % Sodium Potassium Chloride Carbon Dioxide Anion Gap BUN Creatinine 0.5 0.5 0.6 Estimated Creat Clear 128.94 128.94 107.45 Estimated GFR 129 129 123 Glucose Calcium Magnesium (1.5-2.6) mg/dL Total Bilirubin (0.1-1.5) mg/dL AST 31 37 H 26 (12-35) U/L ALT 28 33 28 (4-35) U/L Alkaline Phosphatase (40-150) U/L NT-Pro-B Natriuret Pep 196 pg/mL Total Protein (6.0-8.3) g/dL Albumin (3.3-5.0) g/dL 10/18/24 10/18/24 10/18/24 Range/Units 13:41 07:35 01:50 WBC 5.24 7.16 (4.50-11.00) K/uL RBC 4.07 3.96 L (4.00-5.20) m/uL Hgb 11.6 L 11.3 L (12.0-16.0) gm/dL Hct 35.2 34.4 (33.0-51.0) % MCV 87 87 (80-100) fL MCH 29 29 (26-34) pg MCHC 33 33 (32-36) gm/dL RDW Coeff of Tanisha (11.5-15.5) % Plt Count 353 335 (140-440) K/uL Neut % (Auto) (42.0-72.0) % Lymph % (Auto) (20-44) % [place] % (Auto) (0.0-11.0) % Eos % (Auto) (0.0-7.0) % Baso % (Auto) (0.0-3.0) % Neut # (Auto) (1.7-7.0) K/uL Lymph # (Auto) (0.90-2.90) K/uL [place] # (Auto) (0.00-0.90) K/UL Eos # (Auto) (0.00-0.50) K/uL Baso # (Auto) (0.00-0.30) K/uL Abs Immat Gran (auto) (0.00-0.30) K/uL Imm/Tot Granulo (auto) % Sodium Potassium Chloride Carbon Dioxide Anion Gap BUN 13 18 Creatinine 0.5 0.5 Estimated Creat Clear 128.94 128.94 Estimated GFR 129 129 Glucose Calcium Magnesium 6.8 H* 6.8 H* 6.0 H* (1.5-2.6) mg/dL Total Bilirubin (0.1-1.5) mg/dL AST 23 23 (12-35) U/L ALT 32 32 (4-35) U/L Alkaline Phosphatase (40-150) U/L NT-Pro-B Natriuret Pep pg/mL Total Protein (6.0-8.3) g/dL Albumin (3.3-5.0) g/dL 10/17/24 10/17/24 10/17/24 Range/Units 18:45 18:45 18:45 WBC (4.50-11.00) K/uL RBC (4.00-5.20) m/uL Hgb (12.0-16.0) gm/dL Hct (33.0-51.0) % MCV (80-100) fL MCH (26-34) pg MCHC (32-36) gm/dL RDW Coeff of Tanisha (11.5-15.5) % Plt Count (140-440) K/uL Neut % (Auto) (42.0-72.0) % Lymph % (Auto) (20-44) % [place] % (Auto) (0.0-11.0) % Eos % (Auto) (0.0-7.0) % Baso % (Auto) (0.0-3.0) % Neut # (Auto) (1.7-7.0) K/uL Lymph # (Auto) (0.90-2.90) K/uL [place] # (Auto) (0.00-0.90) K/UL Eos # (Auto) (0.00-0.50) K/uL Baso # (Auto) (0.00-0.30) K/uL Abs Immat Gran (auto) (0.00-0.30) K/uL Imm/Tot Granulo (auto) % Sodium Potassium Chloride Carbon Dioxide Anion Gap BUN Creatinine Estimated Creat Clear Estimated GFR 123 Glucose 89 Cancelled Calcium 9.7 Cancelled Magnesium (1.5-2.6) mg/dL Total Bilirubin 0.3 (0.1-1.5) mg/dL AST 26 (12-35) U/L ALT 38 H (4-35) U/L Alkaline Phosphatase 107 (40-150) U/L NT-Pro-B Natriuret Pep pg/mL Total Protein 7.6 (6.0-8.3) g/dL Albumin 4.5 (3.3-5.0) g/dL 10/17/24 10/17/24 10/17/24 Range/Units 18:45 18:45 18:45 WBC (4.50-11.00) K/uL RBC (4.00-5.20) m/uL Hgb (12.0-16.0) gm/dL Hct (33.0-51.0) % MCV (80-100) fL MCH (26-34) pg MCHC (32-36) gm/dL RDW Coeff of Tanisha (11.5-15.5) % Plt Count (140-440) K/uL Neut % (Auto) (42.0-72.0) % Lymph % (Auto) (20-44) % [place] % (Auto) (0.0-11.0) % Eos % (Auto) (0.0-7.0) % Baso % (Auto) (0.0-3.0) % Neut # (Auto) (1.7-7.0) K/uL Lymph # (Auto) (0.90-2.90) K/uL [place] # (Auto) (0.00-0.90) K/UL Eos # (Auto) (0.00-0.50) K/uL Baso # (Auto) (0.00-0.30) K/uL Abs Immat Gran (auto) (0.00-0.30) K/uL Imm/Tot Granulo (auto) % Sodium Potassium Chloride Carbon Dioxide Anion Gap 9 BUN 22 Cancelled Creatinine 0.6 Cancelled Estimated Creat Clear Cancelled Estimated GFR Cancelled Glucose Calcium Magnesium (1.5-2.6) mg/dL Total Bilirubin (0.1-1.5) mg/dL AST (12-35) U/L ALT (4-35) U/L Alkaline Phosphatase (40-150) U/L NT-Pro-B Natriuret Pep pg/mL Total Protein (6.0-8.3) g/dL Albumin (3.3-5.0) g/dL 10/17/24 10/17/24 10/17/24 Range/Units 18:45 18:45 18:45 WBC (4.50-11.00) K/uL RBC (4.00-5.20) m/uL Hgb (12.0-16.0) gm/dL Hct (33.0-51.0) % MCV (80-100) fL MCH (26-34) pg MCHC (32-36) gm/dL RDW Coeff of Tanisha (11.5-15.5) % Plt Count (140-440) K/uL Neut % (Auto) (42.0-72.0) % Lymph % (Auto) (20-44) % [place] % (Auto) (0.0-11.0) % Eos % (Auto) (0.0-7.0) % Baso % (Auto) (0.0-3.0) % Neut # (Auto) (1.7-7.0) K/uL Lymph # (Auto) (0.90-2.90) K/uL [place] # (Auto) (0.00-0.90) K/UL Eos # (Auto) (0.00-0.50) K/uL Baso # (Auto) (0.00-0.30) K/uL Abs Immat Gran (auto) (0.00-0.30) K/uL Imm/Tot Granulo (auto) % Sodium Potassium 3.7 Chloride 104 Cancelled Carbon Dioxide 24 Cancelled Anion Gap Cancelled BUN Creatinine Estimated Creat Clear Estimated GFR Glucose Calcium Magnesium (1.5-2.6) mg/dL Total Bilirubin (0.1-1.5) mg/dL AST (12-35) U/L ALT (4-35) U/L Alkaline Phosphatase (40-150) U/L NT-Pro-B Natriuret Pep pg/mL Total Protein (6.0-8.3) g/dL Albumin (3.3-5.0) g/dL 10/17/24 10/17/24 Range/Units 18:45 18:45 WBC (4.50-11.00) K/uL RBC (4.00-5.20) m/uL Hgb (12.0-16.0) gm/dL Hct (33.0-51.0) % MCV (80-100) fL MCH (26-34) pg MCHC (32-36) gm/dL RDW Coeff of Tanisha (11.5-15.5) % Plt Count (140-440) K/uL Neut % (Auto) (42.0-72.0) % Lymph % (Auto) (20-44) % [place] % (Auto) (0.0-11.0) % Eos % (Auto) (0.0-7.0) % Baso % (Auto) (0.0-3.0) % Neut # (Auto) (1.7-7.0) K/uL Lymph # (Auto) (0.90-2.90) K/uL [place] # (Auto) (0.00-0.90) K/UL Eos # (Auto) (0.00-0.50) K/uL Baso # (Auto) (0.00-0.30) K/uL Abs Immat Gran (auto) (0.00-0.30) K/uL Imm/Tot Granulo (auto) % Sodium 137 Cancelled Potassium Cancelled Chloride Carbon Dioxide Anion Gap BUN Creatinine Estimated Creat Clear Estimated GFR Glucose Calcium Magnesium (1.5-2.6) mg/dL Total Bilirubin (0.1-1.5) mg/dL AST (12-35) U/L ALT (4-35) U/L Alkaline Phosphatase (40-150) U/L NT-Pro-B Natriuret Pep pg/mL Total Protein (6.0-8.3) g/dL Albumin (3.3-5.0) g/dL OB Problem List Additional Plan (1) Pre-eclampsia in period: Problem details: Pt is s/p at 38wks, was induced for preeclampsia. Had elevated BP's, headache and elevated LFT's (42, 50) and was started on labetalol and nifedipine and but did not require magnesium. Was discharged home and had close followup next day with BP okay and LFT's improved. She then presented to ER 10/17/24 due to feeling off and BP's in severe range. Given IV hydralazine in ER and had labs wnl. Started on magnesium and continued to 24 hours, mag d/c'd 10/18/241952. BP's were better on mag so nifedipine had been stopped while on mag. Off Mag, Bp's increasing so Nifedipine restarted and labetalol titrated. Required IV hydralazine for severe range pressure x1 10/19/24. Prior to discharge, BPs well-controlled for 24 hours on nifedipine ER 60 mg BID and labetalol 400 mg TID. Status: Acute Plan: - Continue nifedipine ER 60 mg BID and labetalol 400 mg TID - Check BP twice daily at home. Contact center if severe range or new symptoms - Follow-up with Dr. Sánchez as scheduled on 10/24/24 DS: Summary Vital Signs Vital Signs: Vital Signs Temp Pulse Pulse Resp BP Pulse Ox O2 Del Method 10/20/24 15:55 98.6 F 75 16 130/84 97 Room Air 10/20/24 10:55 97.8 F 82 16 120/76 97 Room Air 10/20/24 08:18 98.2 F 81 16 123/79 97 Room Air 10/20/24 05:42 98.4 F 73 18 119/77 97 Room Air 10/20/24 03:56 73 16 117/76 10/20/24 02:34 73 16 116/77 10/20/24 01:35 97.8 F 89 16 113/75 97 Room Air 10/20/24 00:35 76 125/84 10/19/24 23:33 84 132/76 10/19/24 22:58 77 132/85 10/19/24 22:21 71 125/78 10/19/24 22:06 68 137/80 10/19/24 21:51 73 144/80 H 10/19/24 21:36 98.4 F 75 16 145/84 H 97 Room Air 10/19/24 21:16 72 154/93 H 10/19/24 21:06 67 149/91 H 10/19/24 20:55 73 137/83 10/19/24 20:41 70 133/83 10/19/24 20:30 84 142/84 H Discharge Examination Physical Examination findings: General appearance: Well-appearing adult female. Alert, oriented and appropriate. Sitting up in hospital bed. HEENT: EOMI, no conjunctival injection or discharge. MMM. Neck: Supple. CV: RRR, no rubs, murmurs or extra heart sounds. Pulm: CTAB, no wheezes, rales or rhonchi. MSK: Moving all extremities. Ext: Warm and well-perfused. No LE edema. Skin: No rashes appreciated over exposed skin. Neuro: Grossly normal strength and sensation. No focal deficits. Patellar reflexes 1+ and symmetric. Psych: Normal affect.
== END 2024-10-20 21:15 | disposition home or self-care (01) | DRG 561 ==
LOC: ED 19:08 → OB 19:11 → ED 19:17 → OB 19:17
PROVIDERS: Family Medicine; Admitting Provider Surgery; Emergency Provider Student in an Organized Health Care Education/Training Program; PCP Family Medicine; Visit Provider Surgery
DX: O14.15 Severe pre-eclampsia, complicating the puerperium (principal); R51.9 Headache, unspecified
CPT/HCPCS: 36415; 80048; 80053; 81001; 82565; 83735; 83880; 84450; 84460; 84520; 85025; 85027; 85049; 99285; 99291; A9270; J0360; J3475; J7120